=== PATIENT | female | born 1960 | race Caucasian/White ===

== ENCOUNTER → 2018-01-16 14:09 | Outpatient (CLI) | payer OTHER, SELFPAY ==
[2018-01-16 17:23] LABS: Absolute Lymphocyte Count 0.97 X10^3/ul (0.83-4.51); Absolute Neutrophil Count 1.6 X10^3/uL (2.0-7.7); Basophil# 0.01 X10^3/uL; Basophil% 0.3 % (0-1); Eosinophil# 0.11 X10^3/uL; Eosinophils% 3.7 % (0-5); Hemoglobin 14.7 g/dl (12.0-15.0); Lymphocyte # 0.97 X10^3/ul (4.0); Lymphocyte % 32.7 % (19-41); Mean Corp Hgb Conc 32.7 g/gl (32-36); Mean Corpuscular Hgb 30.4 pg (27.0-32.0); Mean Platelet Vol. 11.8 fl (6.2-12.0); Monocyte# 0.28 X10^3/uL; Monocyte% 9.4 % (0-10); Neutrophil # 1.59 X10^3/uL (2.7-7.7); Neutrophil % 53.6 % (47-70); POSITIVE DIFFERENTIAL NO; Platelet Count 62 K/mm3 (150-450); RBC Distribution Width CV 15.4 % (11.6-14.6); RBC Distribution Width SD 51.6 fl (35.1-43.9); Red Blood Count 4.84 M/mm3 (4.2-5.4)
[2018-01-16 17:24] LABS: POSITIVE COUNT NO; POSITIVE MORPHOLOGY NO
[2018-01-16 17:46] LABS: Anion Gap 6 (5-15); BUN 14 mg/dL (7-18); BUN/Creat Ratio 23.6 RATIO (10-20); Calcium,Total 8.3 mg/dL (8.5-10.1); Chloride 110 mmol/L (98-107); Creatinine, Serum 0.59 mg/dL (0.55-1.02); EST Glomerular Filtration Rate 111 mL/min (>60); Est Glom Filt Rate - Afr Amer 134 mL/min (>60); Glucose 86 mg/dL (74-106); Sodium Level 143 mmol/L (136-145); Thyroid Stim Hormone (TSH) 1.38 uIU/mL (0.358-3.74)
[2018-01-18 12:05] LABS: AFP, Tumor Marker 1.9 ng/mL (0.0-8.3)
== END ==
PROVIDERS: Family Provider Family Medicine Geriatric Medicine; PCP Family Medicine Geriatric Medicine; Visit Provider Internal Medicine Gastroenterology
DX: K74.60 Unspecified cirrhosis of liver (principal)
CPT/HCPCS: 36415; 80048; 82105; 84443; 85025

== ENCOUNTER → 2018-01-16 17:22 | Outpatient (CLI) | payer OTHER, SELFPAY | PROVIDERS: Family Provider Family Medicine Geriatric Medicine; PCP Family Medicine Geriatric Medicine; Visit Provider Family Medicine Geriatric Medicine | DX: N39.0 Urinary tract infection, site not specified (principal) | CPT/HCPCS: 87077; 87086; 87088; 87186 ==

== ENCOUNTER → 2018-01-30 10:12 | Outpatient (CLI) | payer OTHER, SELFPAY ==
[2018-01-30 10:57] LABS: Hematocrit 46.7 % (37-47); Hemoglobin 14.7 g/dl (12.0-15.0); Mean Corp Hgb Conc 31.5 g/gl (32-36); Mean Corpuscular Hgb 29.3 pg (27.0-32.0); Mean Platelet Vol. 11.7 fl (6.2-12.0); Platelet Count 72 K/mm3 (150-450); RBC Distribution Width CV 15.2 % (11.6-14.6); RBC Distribution Width SD 52.1 fl (35.1-43.9); Red Blood Count 5.02 M/mm3 (4.2-5.4); White Blood Count 3.8 K/mm3 (4.4-11.0)
[2018-01-30 10:59] LABS: Scan Indicated on CBC? Y/N NO
[2018-01-30 11:08] LABS: Prothrombin Time (Protime)PT. 12.9 SECONDS (11.7-14.9)
[2018-01-30 11:09] LABS: Partial Thromboplast Time 25.5 Seconds (24.1-36.2)
[2018-01-30 11:27] LABS: AST(SGOT) 131 U/L (15-37); Alanine Aminotransfer ALT/SGPT 130 U/L (13-56); Albumin, Serum 3.4 g/dL (3.2-5.0); Alkaline Phosphatase 337 U/L (45-117); Bilirubin, Direct 0.37 mg/dL (0.00-0.30); Globulin 3.5 g/dL (2.2-4.2); Protein, Total 6.9 g/dL (6.4-8.2)
== END ==
PROVIDERS: Family Provider Family Medicine Geriatric Medicine; PCP Family Medicine Geriatric Medicine; Visit Provider Internal Medicine Gastroenterology
DX: K74.60 Unspecified cirrhosis of liver (principal)
CPT/HCPCS: 36415; 80076; 85027; 85610; 85730

== ENCOUNTER → 2018-04-17 12:15 | Outpatient (CLI) | payer OTHER, SELFPAY ==
[2018-04-17 15:03] LABS: AST(SGOT) 107 U/L (15-37); Alanine Aminotransfer ALT/SGPT 90 U/L (13-56); Albumin, Serum 3.4 g/dL (3.2-5.0); Alkaline Phosphatase 244 U/L (45-117); Anion Gap 5 (5-15); BUN 12 mg/dL (7-18); BUN/Creat Ratio 21.9 RATIO (10-20); Chloride 107 mmol/L (98-107); Creatinine, Serum 0.55 mg/dL (0.55-1.02); EST Glomerular Filtration Rate 121 mL/min (>60); Est Glom Filt Rate - Afr Amer 146 mL/min (>60); Globulin 3.4 g/dL (2.2-4.2); Glucose 83 mg/dL (74-106); Protein, Total 6.8 g/dL (6.4-8.2); Sodium Level 140 mmol/L (136-145)
== END ==
PROVIDERS: Family Provider Family Medicine Geriatric Medicine; PCP Family Medicine Geriatric Medicine; Visit Provider Internal Medicine Gastroenterology
DX: K74.3 Primary biliary cirrhosis (principal)
CPT/HCPCS: 36415; 80053

== ENCOUNTER 2018-06-05 14:43 | Outpatient (RCR) | payer OTHER, SELFPAY ==
[2018-06-05 15:40] LABS: ALB/GLOB Ratio 0.9 RATIO (0.9-2.4); AST(SGOT) 86 U/L (15-37); Alanine Aminotransfer ALT/SGPT 81 U/L (13-56); Albumin, Serum 3.1 g/dL (3.2-5.0); Alkaline Phosphatase 218 U/L (45-117); Anion Gap 6 (5-15); BUN 16 mg/dL (7-18); BUN/Creat Ratio 26.1 RATIO (10-20); Calcium,Total 8.8 mg/dL (8.5-10.1); Chloride 105 mmol/L (98-107); Creatinine, Serum 0.61 mg/dL (0.55-1.02); EST Glomerular Filtration Rate 106 mL/min (>60); Est Glom Filt Rate - Afr Amer 129 mL/min (>60); Globulin 3.4 g/dL (2.2-4.2); Glucose 112 mg/dL (74-106); Potassium 4.1 mmol/L (3.5-5.1); Protein, Total 6.5 g/dL (6.4-8.2); Sodium Level 140 mmol/L (136-145)
== END 2018-06-05 16:00 | disposition home or self-care (01) ==
LOC: LAB 14:43
PROVIDERS: Family Provider Family Medicine Geriatric Medicine; PCP Family Medicine Geriatric Medicine; Visit Provider Internal Medicine Gastroenterology
DX: K74.3 Primary biliary cirrhosis (principal)
CPT/HCPCS: 36415; 80053

== ENCOUNTER → 2018-07-10 06:43 | Outpatient (CLI) | payer OTHER, SELFPAY ==
--- NOTE | 2018-07-10 06:46 | CT_ITS ---
STUDY: CT ABDOMEN WITH CONTRAST REASON FOR EXAM: Female, 58 years old. Cirrhosis. RADIATION DOSAGE (If Supplied By Facility): CTDIvol = ( 15.08 ) mGy, DLP = ( 789.44 ) mGycm TECHNIQUE: Transaxial images were obtained post I.V. administration of 100 ml of Isovue 300 contrast, and with oral contrast. Sagittal and coronal images were reconstructed. Individualized dose optimization techniques were used for this CT. COMPARISON: Comparison is made with prior study dated November 21, 2016. FINDINGS: Mild degree of groundglass appearance in the right lower lobe. This may represent an early infiltrate. Follow-up is recommended. Stable linear scarring at the lung bases. The visualized portions of the heart are within normal limits. There is decreased attenuation of the liver consistent with steatosis. Normal gallbladder and extrahepatic biliary system. There is moderate splenomegaly. Normal pancreas. The previously seen perisplenic venous collaterals are not as prominent at this time. Normal bilateral adrenal glands. There is a 2.9 cm cyst in the anterior-inferior portion of the right kidney. Smaller cysts are also seen throughout the remainder of the right kidney as well as a 2 cm cyst in the anterior aspect of the left kidney. Normal left kidney. Normal visualized stomach. Normal small intestine. There are multiple colonic diverticula consistent with diverticulosis. The appendix is visualized and appears normal. There is scattered atherosclerotic calcification of the abdominal aorta, without a demonstrated aneurysm. Normal inferior vena cava. Normal retroperitoneum. Normal abdominal wall. Normal osseous structures. CT/Abdomen WITH IV Contrast IMPRESSION: Infiltration of the liver. Moderate splenomegaly. Electronically Signed: Edgardo George MD at 12:50 EDT Tel [phone], Service support ,
== END ==
PROVIDERS: Family Provider Family Medicine Geriatric Medicine; PCP Family Medicine Geriatric Medicine; Referring Provider Internal Medicine Gastroenterology; Visit Provider Internal Medicine Gastroenterology
DX: K74.60 Unspecified cirrhosis of liver (principal); K76.89 Other specified diseases of liver; R16.1 Splenomegaly, not elsewhere classified
CPT/HCPCS: 74160; Q9967

== ENCOUNTER → 2018-07-22 | Outpatient (CLI) | payer OTHER, SELFPAY | END | disposition home or self-care (01) | PROVIDERS: Family Provider Family Medicine Geriatric Medicine; PCP Family Medicine Geriatric Medicine; Referring Provider Ophthalmology; Visit Provider Ophthalmology | DX: H16.123 Filamentary keratitis, bilateral (principal) | CPT/HCPCS: 36415 ==

== ENCOUNTER → 2018-08-05 07:12 | Outpatient (CLI) | payer OTHER, SELFPAY ==
--- NOTE | 2018-08-05 07:14 | BI_ITS ---
MAMMOGRAPHY - BILATERAL SCREENING REASON FOR EXAM: Female, 58 years old. Routine annual screening examination. PERTINENT HISTORY: Mother with breast cancer. Aunt with breast cancer. TECHNIQUE: Digital bilateral breast rosanna (3D mammographic acquisition) in the CC and MLO projections. 2-D mediolateral oblique (MLO) and craniocaudad (CC) views of both breasts were obtained. CAD: Full Field Digital Mammography with Computer Added Detection was performed. COMPARISON: Comparison is made with prior study dated August 30, 2016 and July 28, 2015. FINDINGS: Breast Composition: The breasts are heterogeneously dense, which may obscure small masses. There are no dominant masses or suspicious calcifications. No other significant abnormalities are identified. There has been no significant change since the prior study. BI/SCREENING MAMM (CAD), BILAT IMPRESSION: Stable bilateral screening mammogram. Yearly follow-up mammogram recommended. (A) ASSESSMENT CATEGORY: BIRADS Category 1: Negative. A letter regarding these results will be sent to the patient by the facility within 30 days. Approximately 10% of breast cancers are not detected by mammography. A normal mammogram should not delay biopsy of a clinically suspicious abnormality. [id number] Electronically Signed: Edgardo George MD at 8:10 EST Tel [phone], Service support ,
== END ==
PROVIDERS: Family Provider Family Medicine Geriatric Medicine; PCP Family Medicine Geriatric Medicine; Referring Provider Family Medicine Geriatric Medicine; Visit Provider Family Medicine Geriatric Medicine
DX: Z12.31 Encounter for screening mammogram for malignant neoplasm of breast (principal)
CPT/HCPCS: 77063; 77067

== ENCOUNTER → 2018-10-09 12:09 | Outpatient (CLI) | payer OTHER, SELFPAY ==
[2018-10-09 15:17] LABS: Absolute Lymphocyte Count 0.99 X10^3/ul (0.83-4.51); Absolute Neutrophil Count 1.9 X10^3/uL (2.0-7.7); Basophil# 0.01 X10^3/uL; Basophil% 0.3 % (0-1); Eosinophil# 0.14 X10^3/uL; Eosinophils% 4.1 % (0-5); Hematocrit 45.8 % (37-47); Hemoglobin 14.7 g/dl (12.0-15.0); Lymphocyte # 0.99 X10^3/ul (4.0); Mean Corp Hgb Conc 32.1 g/gl (32-36); Mean Corpuscular Hgb 30.1 pg (27.0-32.0); Mean Corpuscular Volume 93.9 fL (81-99); Mean Platelet Vol. 12.5 fl (6.2-12.0); Monocyte# 0.37 X10^3/uL; Monocyte% 10.9 % (0-10); Neutrophil % 55.7 % (47-70); Platelet Count 52 K/mm3 (150-450); RBC Distribution Width CV 15.1 % (11.6-14.6); RBC Distribution Width SD 50.8 fl (35.1-43.9); Red Blood Count 4.88 M/mm3 (4.2-5.4); White Blood Count 3.4 K/mm3 (4.4-11.0)
[2018-10-09 15:23] LABS: POSITIVE COUNT NO; POSITIVE DIFFERENTIAL NO; POSITIVE MORPHOLOGY NO
--- OUTSIDE RECORDS SUMMARY | 2018-12-11 10:12 | XMS RPT_ITS ---
:1960 Author Organization OHIP Support Name Relationship Address Phone RUFINA TIJERINA Unavailable [address] + [place] [address] [facility] Unavailable [address] + [place] [address] RUFINA TIJERINA Unavailable [address] + [place] [address] [facility] Unavailable [address] + [place] [address] RUFINA TIJERINA Unavailable [address] + [place] [address] [facility] Unavailable [address] + [place] [address] RUFINA TIJERINA Unavailable [address] + [place] [address] [facility] Unavailable [address] + [place] [address] RUFINA TIJERINA Unavailable [address] + [place] [address] [facility] Unavailable [address] + [place] [address] RUFINA TIJERINA Unavailable [address] + [place] [address] [facility] Unavailable [address] + [place] [address] RUFINA TIJERINA Unavailable [address] + [place] [address] [facility] Unavailable [address] + [place] [address] RUFINA TIJERINA Unavailable [address] + [place] [address] [facility] Unavailable [address] + [place] [address] RUFINA TIJERINA Unavailable [address] + [place] [address] [facility] Unavailable [address] + [place] [address] RUFINA TIJERINA Unavailable [address] + [place] [address] [facility] Unavailable [address] + [place] [address] Care Team Providers Name Role Phone TAYLOROGIDA, JAIMEE A Referring Unavailable ARMOGIDA, JAIMEE A Referring Unavailable ARMOGIDA, JAIMEE A Attending Unavailable ARMOGIDA, JAIMEE A Referring Unavailable Armogida, Jaimee Attending Unavailable Armogida, Jaimee Referring Unavailable Vazquez, Lionel Chi Primary Care Unavailable Jabour, Vincent Attending Unavailable Vazquez, Lionel Chi Primary Care Unavailable Jabour, Vincent Referring Unavailable Vazquez, Lionel Chi Attending Unavailable Vazquez, Lionel Chi Primary Care Unavailable Vazquez, Lionel Chi Referring Unavailable Jabour, Vincent Attending Unavailable Jabour, Vincent Referring Unavailable Vazquez, Lionel Chi Primary Care Unavailable Jabour, Vincent Attending Unavailable Vazquez, Lionel Chi Primary Care Unavailable Jabour, Vincent Referring Unavailable Jabour, Vincent Attending Unavailable Jabour, Vincent Referring Unavailable Vazquez, Lionel Chi Primary Care Unavailable Jabour, Vincent Attending Unavailable Jabour, Vincent Referring Unavailable Vazquez, Lionel Chi Primary Care Unavailable Jabour, Vincent Attending Unavailable Jabour, Vincent Referring Unavailable Vazquez, Lionel Chi Primary Care Unavailable Giacomo Storey Attending Unavailable Vazquez, Lionel Chi Primary Care Unavailable Giacomo Storey Referring Unavailable Vazquez, Lionel Chi Attending Unavailable Vazquez, Lionel Chi Primary Care Unavailable Vazquez, Lionel Chi Referring Unavailable PROBLEMS PROBLEMS DATE TYPE CONDITION / CODE ATTENDING STATUS SOURCE 10/09/2018 Unknown D83.9 - Common Armogida, Active [place] variable [facility] immunodeficiency, [facility] unspecified / Repository D83.9(ICD-10) 08/29/2018 Active Moderate persistent NA Active [facility] asthma, [facility] [place] uncomplicated / Repository J45.40(ICD-10) 08/27/2018 Active Common variable NA Active [facility] immunodeficiency, [facility] [place] unspecified / Repository D83.9(ICD-10) 08/12/2018 Unknown H16.123 - Cordelia, Active [place] [facility] keratitis, Hospital bilateral / Repository H16.123(ICD-10) 06/19/2018 Unknown K74.3 - Primary Kaley, Paul Active [place] biliary cirrhosis / Community K74.3(ICD-10) Hospital Repository 01/30/2018 Unknown K74.60 - Kaley, Paul Active [place] Unspecified [facility] cirrhosis of liver Hospital / K74.60(ICD-10) Repository 01/17/2018 Unknown N39.0 - Urinary Vazquez, Lionel Chi Active [place] tract infection, Community site not specified Hospital / N39.0(ICD-10) Repository 01/17/2018 Unknown R53.83 - Other Kaley, Paul Active [place] fatigue / Community R53.83(ICD-10) Hospital Repository PROCEDURES PROCEDURES No Procedure Records FoundRESULTS RESULTS CBC W/DIFF, AUTOMATED Collected: 10/09/2018 Status: F Source: [place] 12:18 PM [facility] REPOSITORY TYPE CODE TESTS RESULT OUT OF RANGE REFERENCE UNITS LAB L100.1000 4.4-11.0 K/mm3 Low WBC 3.4 LAB L100.1200 4.2-5.4 M/mm3 Normal RBC 4.88 LAB L100.1300 12.0-15.0 g/dl Normal HGB 14.7 LAB L100.1400 37-47 % Normal HCT 45.8 LAB L100.1500 81-99 fL Normal MCV 93.9 LAB L100.1600 27.0-32.0 pg Normal MCH 30.1 LAB L100.1700 32-36 g/gl Normal MCHC 32.1 LAB L100.1810 11.6-14.6 % High RDW CV 15.1 LAB L100.1820 35.1-43.9 fl High RDW SD 50.8 LAB L100.1900 150-450 K/mm3 Low PLT 52 LAB L100.2000 6.2-12.0 fl High MPV 12.5 LAB L100.2100 47-70 % Normal NEUT% 55.7 LAB L100.2200 19-41 % Normal LY% 29.0 LAB L100.2300 0-10 % High MONO% 10.9 LAB L100.2400 0-5 % Normal EO% 4.1 LAB L100.2500 0-1 % Normal BASO% 0.3 LAB L100.2550 0.0-0.9 % Normal IM GRAN % 0.000 Result Comment: IG% - Immature Granulocytes (promyelocytes, myelocytes and metamyelocytes) > 1% indicates that a LEFT SHIFT is Present. LAB L100.2620 2.0-7.7 X10 3/uL Low Absolute Neut 1.9 LAB L100.2720 0.83-4.51 X10 3/ul Normal Absolute Lymph 0.99 Performed By: #### L100.0100 #### [facility] [address] [place], [address] PROGRESS Observed: 08/29/2018 Status: COMPLETED Source: [place] 4:23 PM [facility] [place] REPOSITORY HNO ID: [id number] Author: Jaimee Candelario Service: (none) Author Type: Physician Type: Progress Notes Filed: 08/30/2018 7:16 AM Note Text: Edna Tijerina is a 58 year old female with common variable immunodeficiency, moderate persistent asthma and PEIFANIO who presents for a followup visit. She also has a history of thrombocytopenia for which she has previously been evaluated in hematology (Dr. Means.). He felt the thrombocytopenia was secondary to her liver disease rather than common variable immunodeficiency. Her last visit was July 24, 2017. Overall, she has done well over the past year without experiencing significant infections. Denies taking antibiotics since her last visit. She continues Hizentra 11 g per week. She has been tolerating this without adverse reaction. Recent trough IgG level was 1050. She has intentionally lost 60 pounds through [employer]. Her primary care physician prescribed Tudorza a few months ago. She discontinued use of Dulera when she started Tudorza Her respiratory symptoms have improved with Tudorza. She denies cough, wheezing, chest tightness and shortness of breath. Denies nocturnal awakenings due to respiratory symptoms. Infrequent albuterol use. Denies treatment with systemic corticosteroids, ER visits or hospitalizations for respiratory symptoms since her last visit. On laboratory evaluation completed on August 26, 2018 at [facility], white blood cell count was low at 2.8. Absolute lymphocyte count was 900. Absolute granulocyte count was 1400. Platelets were low at 57. (Typically her platelet count is between 80-100). ALT, AST and alkaline phosphatase are elevated at 72, 101 and 230 respectively. She is compliant with use of CPAP for obstructive sleep apnea. (On November 07, 2016, she was evaluated by Dr. Means in hematology for thrombocytopenia. She has an enlarged spleen and portal hypertension. Dr. Means feels that the thrombocytopenia is secondary to her liver disease and recommended follow-up as needed. Trough IgG level was 885 in July,.) (03/26/2013: Edna Tijerina is a 52 year old female with common variable immunodeficiency, and moderate persistent asthma who presents for a followup visit. Her last visit was January 15, 2013. She began hizentra 9 g subcutaneously once per week at that time. She reports mild itching at the infusion sites. Otherwise, she has been tolerating the infusions without adverse reaction. One episode of sinusitis requiring treatment with a 10-14 day course of antibiotics since her last visit. She currently has an upper respiratory infection. She complains of intermittent cough. Noted wheezing on one occasion after walking up several flights of stairs. Denies chest tightness and shortness of breath. Rare albuterol use. Sometimes forgets evening dose of Dulera. Denies nocturnal awakenings due to respiratory symptoms. No oral steroids, ER visits or admissions for respiratory symptoms since her last visit. Her mother is undergoing chemo and radiation for tumor of maxillary sinus- under the care of Drs. Garza and Miki. (From visit on 01/15/13: On December 30, she developed severe low back pain during her first IVIG infusion. The pain developed at the initial rate of 30 mL per hour. Infusion was stopped. She was treated with Demerol, hydrocortisone, Benadryl and a saline bolus of 500 mL with improvement. The infusion was resumed and completed. Today she will receive her first subcutaneous infusion of Hizentra 9 g in the office. No infections requiring treatment with antibiotics since her last visit. Asthma symptoms have been well-controlled since her last visit.) (From visit on 12/23/2012... Her nasal symptoms have been well-controlled by fluticasone nasal spray. Asthma symptoms have remained well-controlled since her last visit. She feels the combination of Dulera 200/5 and Singulair is effective. Denies significant wheezing, chest tightness and shortness of breath. Denies nocturnal awakenings due to respiratory symptoms. No oral steroids, ER visits or admissions for asthma since her last visit. No infections requiring treatment with antibiotics since her last visit.) (From her initial visit on October 06, 2012: ...was diagnosed with common variable immunodeficiency by Dr. Garza in 2009. She has a 13 year history of recurrent infections. She currently has left lower lobe pneumonia. In June,, she had right lower lobe pneumonia. She has a history of recurrent sinusitis. She last took antibiotics for sinusitis over one year ago. She has a history of occasional urinary tract infection. She [place] Giardia lamblia [place] [id number]. She was admitted for pleural effusion in 1988. No other admissions for infections. She has a history of DVTs and nephrotic syndrome related to . Nephrotic syndrome has resolved although she occasionally has a small amount of protein in her urine. She also has a history of mixed connective tissue disease and primary biliary cirrhosis. She began treatment with IVIG infusions in approximately Jan, 2010. She tolerated the first infusion which was given in a slow rate. When the rate was increased during subsequent infusions, she developed significant muscle spasms of her back. This was treated with Demerol. Symptoms improved by the end of the infusions. She noted decreased infection frequency while on the IVIG. She discontinued IVIG in late 2009 or early 2010 due to the muscle spasms. Interestingly, she occasionally notes similar muscle spasms of the back with use of prednisone. She also has a history of asthma. Asthma symptoms include cough, wheezing and chest tightness. She uses albuterol approximately twice per day for acute symptoms. She also uses Dulera (?strength) but does not take this consistently. She developed sores in her mouth with prior use of Advair. She has a history of dry mouth. She was previously on Singulair with improvement. She has been treated with 4 courses of oral steroids for asthma exacerbations in the past year. No prior emergency room visits or admissions for asthma. Asthma triggers include upper respiratory infections and cold temperatures. She also complains of nasal congestion, rhinorrhea, and postnasal drip. Influenza vaccine is up-to-date. She received a Pneumovax last year. She has received a tetanus diphtheria booster within the past 5 years. She snores at night time but denies witnessed episodes of apnea or gasping. She feels well rested during the day. No prior CT chest.) REVIEW OF SYSTEMS: Negative for fevers, chills, night sweats and unintentional weight loss. Significant for shoulder pain, right greater than left All other review of systems negative except for those listed above. 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 Asthma: no. Eczema: no. Cystic fibrosis: no. Immunodeficiency: yes: dad with possible immunodeficiency. recent diagnosis. not under treatment. sister with MS. SOCIAL HISTORY: Marital status: Children: 2 Occupation: retired broadcast systems engineer, works PRN at [employer] Smoking: quit smoking 15 years ago.Smoked 1/2 PPD off and on for possible total of 15-20 years. ENVIRONMENTAL HISTORY: Lives in a house Age of home: 50 years Heating: gas Woodburning fireplace in the home: no Air conditioning: Central air Basement: Damp basement [place]: primarily hardwood Dust mite controls: Dust mite controls are already in place. pillows only Pets in the home: 1 dogs Outdoor animals: 1 cats indoors when cold Tobacco smoke: No exposure in the home. Physical Exam: GENERAL APPEARANCE:well appearing, alert, in no acute distress, well-hydrated HEENT: NCAT. EYES: Conjunctiva clear both eyes EARS: External ears normal. Canals clear. TM's normal. NOSE/SINUS:mild edema of the nasal mucosa with scant clear secretions bilaterally THROAT: no erythema NECK:neck supple, no adenopathy HEART:RRR with normal S1 and S2 ,no murmurs, no gallops, no rubs LUNGS clear to auscultation bilaterally, no wheezing, rales or rhonchi. ABDOMEN:soft, nontender, nondistended, without organomegaly or palpable masses SKIN: Skin color, texture, turgor normal. No rashes or lesions. Exhaled nitric oxide on February 15, 2016: 37 PPB Exhaled nitric oxide on March 02, 2015: 9 PPB Spirometry on August 28, 2018: Moderate obstruction without a significant bronchodilator response. Spirometry on June 13, 2016: Moderately severe obstruction without a significant bronchodilator response. Spirometry pre-and postbronchodilator on February 15, 2016: Moderately severe obstruction with a significant bronchodilator response. Spirometry on March 02, 2015: Moderately severe obstruction with 13% improvement (180 mL) and FEV1 and 68% improvement in FEF 25-75% postbronchodilator. There has been a significant decline in FEV1 compared to spirometry last completed on October 15, 2013. Spirometry completed on 10/15/2013: Mild obstruction without a significant bronchodilator response PFTs (11/11/2012): Moderate obstruction without a significant bronchodilator response. Lung volumes normal. Diffusing capacity uncorrected mildly impaired. Lab results from October 16, 2012: IgG 179, IgA less than 5, IgM 15, IgE less than 1. Low tetanus and diphtheria IgG antibody. UA negative for protein. Pneumococcal IgG titers were all less than 1 mcg/ml. Prevaccination pneumococcal titers were all less than 1 mcg per mL per liter. On December 13, 2012, postvaccination titers to tetanus, diphtheria and strep pneumonia were obtained. Tetanus and diphtheria were less than 0.1 international units/mL. Pneumococcal titers were all less than [address] chest without contrast completed on November 25, 2012: No acute airspace opacities. Small lymph nodes identified in the mediastinum, may be reactive in nature. Possible lymph nodes in the portacaval region. (Patient has a history of primary biliary cirrhosis and has right upper quadrant ultrasound completed every 6 months. She plans to followup with in gastroenterology.) Prior laboratory evaluation: On October 02, 2009, total protein was 5.7, IgG 338, IgA less than 5 , IgM 22. C3, C4 and CH 50 normal. On lab work completed January 15, 2012, hepatitis B surface antibody, Rubeola IgG antibody, mumps IgG antibody, and rubella IgG antibodies were low. Varicella zoster antibody titer was adequate. Prior radiology reports: On chest x-ray completed October 08, 2012, left lower lobe pneumonia was noted. Previously seen right lower lobe infiltrate had cleared. On chest x-ray completed July 25, 2012, increased density of the posterior basilar right lower lobe was noted which may be field service representative of atelectasis bronchitis or bronchiectasis. Mild hyperinflation was also noted. On chest x-ray completed January 02, 2012, increased interstitial markings consistent with bronchitis was noted. Chest x-ray on January 05, 2014: Chronic interstitial fibrotic changes. No superimposed acute pulmonary process. ASSESSMENT/PLAN: 1.) Common variable immunodeficiency: Continue Hizentra 20% 11 g subcutaneously once per week. Patient will continue to have self injectable epinephrine and Benadryl available in case of anaphylactic reaction. Patient has been instructed to seek emergent medical care immediately after using an EpiPen. Trough IgG level, CBC with differential and platelets and complete metabolic panel will be obtained in February 2019 2.) Thrombocytopenia and elevated liver function tests in the setting of primary biliary cirrhosis: Repeat CBC with differential and platelets will be obtained in 1 month. Recent laboratory results forwarded to the office of her executive legal secretary, Dr. Norwood Recommend that she follow-up with gastroenterology and her primary care physician. 3.) Moderate to severe persistent asthma Continue Tudorza 1 puff twice daily. Resume regular use of Dulera 200/5 2 inhalations twice daily. Use with spacer and rinse mouth out after use. Continue Singulair 10 mg at bedtime. Continue albuterol HFA inhaler with spacer 2 puffs every 4 hours as needed. May also use 15 minutes pre-exercise She should continue to receive an annual inactivated influenza vaccine. Spirometry pre-and postbronchodilator will be obtained. 4.) EPIFANIO: Continue CPAP 5.) Discussed medication dosage, usage, side effects including potential side effects of systemic steroids antibiotics, and goals of treatment in detail. 6.) Follow-up in 6 months - patient will return sooner should new symptoms or problems arise. Jaimee Candelario MD CNOV Observed: 08/29/2018 Status: COMPLETED Source: [place] 3:30 PM [facility] REPOSITORY Office Visit (COURTNEYMED) EDNA TIJERINA ([id number]) 1960 F Date Time Provider Department 08/29/18 3:30 PM JAIMEE CANDELARIO During your visit today, we recorded the following information about you: Pulse Respiration Blood pressure Weight 88/minute 18/minute 108/60 84.4 kg Yina Monsivais RN 08/29/2018 3:58 PM Signed Patient doing well, no infections. Infusions going well. Switched to Tudorza by PCP. Jaimee Candelario MD 08/30/2018 7:16 AM Signed Edna Tijerina is a 58 year old female with common variable immunodeficiency, moderate persistent asthma and EPIFANIO who presents for a followup visit. She also has a history of thrombocytopenia for which she has previously been evaluated in hematology (Dr. Means.). He felt the thrombocytopenia was secondary to her liver disease rather than common variable immunodeficiency. Her last visit was July 24, 2017. Overall, she has done well over the past year without experiencing significant infections. Denies taking antibiotics since her last visit. She continues Hizentra 11 g per week. She has been tolerating this without adverse reaction. Recent trough IgG level was 1050. She has intentionally lost 60 pounds through Weight [employer]. Her primary care physician prescribed Tudorza a few months ago. She discontinued use of Dulera when she started Tudorza Her respiratory symptoms have improved with Tudorza. She denies cough, wheezing, chest tightness and shortness of breath. Denies nocturnal awakenings due to respiratory symptoms. Infrequent albuterol use. Denies treatment with systemic corticosteroids, ER visits or hospitalizations for respiratory symptoms since her last visit. On laboratory evaluation completed on August 26, 2018 at [facility], white blood cell count was low at 2.8. Absolute lymphocyte count was 900. Absolute granulocyte count was 1400. Platelets were low at 57. (Typically her platelet count is between 80-100). ALT, AST and alkaline phosphatase are elevated at 72, 101 and 230 respectively. She is compliant with use of CPAP for obstructive sleep apnea. (On November 07, 2016, she was evaluated by Dr. Means in hematology for thrombocytopenia. She has an enlarged spleen and portal hypertension. Dr. Means feels that the thrombocytopenia is secondary to her liver disease and recommended follow-up as needed. Trough IgG level was 885 in July,.) (03/26/2013: Edna Tijerina is a 52 year old female with common variable immunodeficiency, and moderate persistent asthma who presents for a followup visit. Her last visit was January 15, 2013. She began hizentra 9 g subcutaneously once per week at that time. She reports mild itching at the infusion sites. Otherwise, she has been tolerating the infusions without adverse reaction. One episode of sinusitis requiring treatment with a 10-14 day course of antibiotics since her last visit. She currently has an upper respiratory infection. She complains of intermittent cough. Noted wheezing on one occasion after walking up several flights of stairs. Denies chest tightness and shortness of breath. Rare albuterol use. Sometimes forgets evening dose of Dulera. Denies nocturnal awakenings due to respiratory symptoms. No oral steroids, ER visits or admissions for respiratory symptoms since her last visit. Her mother is undergoing chemo and radiation for tumor of maxillary sinus- under the care of Drs. Garza and Miki. (From visit on 01/15/13: On December 30, she developed severe low back pain during her first IVIG infusion. The pain developed at the initial rate of 30 mL per hour. Infusion was stopped. She was treated with Demerol, hydrocortisone, Benadryl and a saline bolus of 500 mL with improvement. The infusion was resumed and completed. Today she will receive her first subcutaneous infusion of Hizentra 9 g in the office. No infections requiring treatment with antibiotics since her last visit. Asthma symptoms have been well-controlled since her last visit.) (From visit on 12/23/2012... Her nasal symptoms have been well-controlled by fluticasone nasal spray. Asthma symptoms have remained well-controlled since her last visit. She feels the combination of Dulera 200/5 and Singulair is effective. Denies significant wheezing, chest tightness and shortness of breath. Denies nocturnal awakenings due to respiratory symptoms. No oral steroids, ER visits or admissions for asthma since her last visit. No infections requiring treatment with antibiotics since her last visit.) (From her initial visit on October 06, 2012: ...was diagnosed with common variable immunodeficiency by Dr. Garza in 2009. She has a 13 year history of recurrent infections. She currently has left lower lobe pneumonia. In June,, she had right lower lobe pneumonia. She has a history of recurrent sinusitis. She last took antibiotics for sinusitis over one year ago. She has a history of occasional urinary tract infection. She had Giardia lamblia in [id number]. She was admitted for pleural effusion in 1988. No other admissions for infections. She has a history of DVTs and nephrotic syndrome related to . Nephrotic syndrome has resolved although she occasionally has a small amount of protein in her urine. She also has a history of mixed connective tissue disease and primary biliary cirrhosis. She began treatment with IVIG infusions in approximately Jan, 2010. She tolerated the first infusion which was given in a slow rate. When the rate was increased during subsequent infusions, she developed significant muscle spasms of her back. This was treated with Demerol. Symptoms improved by the end of the infusions. She noted decreased infection frequency while on the IVIG. She discontinued IVIG in late 2009 or early 2010 due to the muscle spasms. Interestingly, she occasionally notes similar muscle spasms of the back with use of prednisone. She also has a history of asthma. Asthma symptoms include cough, wheezing and chest tightness. She uses albuterol approximately twice per day for acute symptoms. She also uses Dulera (?strength) but does not take this consistently. She developed sores in her mouth with prior use of Advair. She has a history of dry mouth. She was previously on Singulair with improvement. She has been treated with 4 courses of oral steroids for asthma exacerbations in the past year. No prior emergency room visits or admissions for asthma. Asthma triggers include upper respiratory infections and cold temperatures. She also complains of nasal congestion, rhinorrhea, and postnasal drip. Influenza vaccine is up-to-date. She received a Pneumovax last year. She has received a tetanus diphtheria booster within the past 5 years. She snores at night time but denies witnessed episodes of apnea or gasping. She feels well rested during the day. No prior CT chest.) REVIEW OF SYSTEMS: Negative for fevers, chills, night sweats and unintentional weight loss. Significant for shoulder pain, right greater than left All other review of systems negative except for those listed above. 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 Asthma: no. Eczema: no. Cystic fibrosis: no. Immunodeficiency: yes: dad with possible immunodeficiency. recent diagnosis. not under treatment. sister with MS. SOCIAL HISTORY: Marital status: Children: 2 Occupation: retired broadcast systems engineer, works PRN at [employer] Smoking: quit smoking 15 years ago.Smoked 1/2 PPD off and on for possible total of 15-20 years. ENVIRONMENTAL HISTORY: Lives in a house Age of home: 50 years Heating: gas Woodburning fireplace in the home: no Air conditioning: Central air Basement: Damp basement [place]: primarily hardwood Dust mite controls: Dust mite controls are already in place. pillows only Pets in the home: 1 dogs Outdoor animals: 1 cats indoors when cold Tobacco smoke: No exposure in the home. Physical Exam: GENERAL APPEARANCE:well appearing, alert, in no acute distress, well-hydrated HEENT: NCAT. EYES: Conjunctiva clear both eyes EARS: External ears normal. Canals clear. TM's normal. NOSE/SINUS:mild edema of the nasal mucosa with scant clear secretions bilaterally THROAT: no erythema NECK:neck supple, no adenopathy HEART:RRR with normal S1 and S2 ,no murmurs, no gallops, no rubs LUNGS clear to auscultation bilaterally, no wheezing, rales or rhonchi. ABDOMEN:soft, nontender, nondistended, without organomegaly or palpable masses SKIN: Skin color, texture, turgor normal. No rashes or lesions. Exhaled nitric oxide on February 15, 2016: 37 PPB Exhaled nitric oxide on March 02, 2015: 9 PPB Spirometry on August 28, 2018: Moderate obstruction without a significant bronchodilator response. Spirometry on June 13, 2016: Moderately severe obstruction without a significant bronchodilator response. Spirometry pre-and postbronchodilator on February 15, 2016: Moderately severe obstruction with a significant bronchodilator response. Spirometry on March 02, 2015: Moderately severe obstruction with 13% improvement (180 mL) and FEV1 and 68% improvement in FEF 25-75% postbronchodilator. There has been a significant decline in FEV1 compared to spirometry last completed on October 15, 2013. Spirometry completed on 10/15/2013: Mild obstruction without a significant bronchodilator response PFTs (11/11/2012): Moderate obstruction without a significant bronchodilator response. Lung volumes normal. Diffusing capacity uncorrected mildly impaired. Lab results from October 16, 2012: IgG 179, IgA less than 5, IgM 15, IgE less than 1. Low tetanus and diphtheria IgG antibody. UA negative for protein. Pneumococcal IgG titers were all less than 1 mcg/ml. Prevaccination pneumococcal titers were all less than 1 mcg per mL per liter. On December 13, 2012, postvaccination titers to tetanus, diphtheria and strep pneumonia were obtained. Tetanus and diphtheria were less than 0.1 international units/mL. Pneumococcal titers were all less than [address] chest without contrast completed on November 25, 2012: No acute airspace opacities. Small lymph nodes identified in the mediastinum, may be reactive in nature. Possible lymph nodes in the portacaval region. (Patient has a history of primary biliary cirrhosis and has right upper quadrant ultrasound completed every 6 months. She plans to followup with in gastroenterology.) Prior laboratory evaluation: On October 02, 2009, total protein was 5.7, IgG 338, IgA less than 5 , IgM 22. C3, C4 and CH 50 normal. On lab work completed January 15, 2012, hepatitis B surface antibody, Rubeola IgG antibody, mumps IgG antibody, and rubella IgG antibodies were low. Varicella zoster antibody titer was adequate. Prior radiology reports: On chest x-ray completed October 08, 2012, left lower lobe pneumonia was noted. Previously seen right lower lobe infiltrate had cleared. On chest x-ray completed July 25, 2012, increased density of the posterior basilar right lower lobe was noted which may be field service representative of atelectasis bronchitis or bronchiectasis. Mild hyperinflation was also noted. On chest x-ray completed January 02, 2012, increased interstitial markings consistent with bronchitis was noted. Chest x-ray on January 05, 2014: Chronic interstitial fibrotic changes. No superimposed acute pulmonary process. ASSESSMENT/PLAN: 1.) Common variable immunodeficiency: Continue Hizentra 20% 11 g subcutaneously once per week. Patient will continue to have self injectable epinephrine and Benadryl available in case of anaphylactic reaction. Patient has been instructed to seek emergent medical care immediately after using an EpiPen. Trough IgG level, CBC with differential and platelets and complete metabolic panel will be obtained in February 2019 2.) Thrombocytopenia and elevated liver function tests in the setting of primary biliary cirrhosis: Repeat CBC with differential and platelets will be obtained in 1 month. Recent laboratory results forwarded to the office of her executive legal secretary, Dr. Norwood Recommend that she follow-up with gastroenterology and her primary care physician. 3.) Moderate to severe persistent asthma Continue Tudorza 1 puff twice daily. Resume regular use of Dulera 200/5 2 inhalations twice daily. Use with spacer and rinse mouth out after use. Continue Singulair 10 mg at bedtime. Continue albuterol HFA inhaler with spacer 2 puffs every 4 hours as needed. May also use 15 minutes pre-exercise She should continue to receive an annual inactivated influenza vaccine. Spirometry pre-and postbronchodilator will be obtained. 4.) EPIFANIO: Continue CPAP 5.) Discussed medication dosage, usage, side effects including potential side effects of systemic steroids antibiotics, and goals of treatment in detail. 6.) Follow-up in 6 months - patient will return sooner should new symptoms or problems arise. Jaimee Candelario MD Referring Provider: JAIMEE CANDELARIO [[id number]] Allergies As of Date: 08/29/2018 Noted Allergy Reaction SEASONAL ALLERGIES 11/07/2016 5 - Intolerance Date Reviewed: 08/29/2018 Reviewed by: Jaimee Candelario - Fully Assessed Reason for Visit: Established Patient [175] Cmt: f/u Primary Visit Diagnosis:Common variable immunodeficiency (HCC) [D83.9] Other Visit Diagnoses:Moderate persistent asthma without complication [J45.40] Thrombocytopenia (HCC) [D69.6] Primary biliary cirrhosis (HCC) [K74.3] Order(s):COMPOUNDED PRESCRIPTIONCheck CBC with differential and platelets in mid-September 2018. Fax results to Dr. Candelario at [phone] Dx: CVID 279.06Disp: 1 VialRfl: 0 mometasone-formoterol (DULERA) 200-5 mcg/actuation inhalerInhale 2 Puffs as instructed twice daily. Use with spacer. Rinse mouth out after use.Disp: 3 InhalerRfl: 3 COMPOUNDED PRESCRIPTIONPlease check IgG level, CBC with differential and platelets, electrolytes, Bun, creatinine and LFTs in February 2019 and fax results to Dr. Candelario at [phone]. DX: CVID D83.9Disp: 1 VialRfl: 0 Prescriptions as of 08/29/2018 Sig: ACLIDINIUM BROMIDE 400 MCG/AC* Inhale 1 Puff as instructed t* ALBUTEROL 90 MCG/ACTUATION AE* Inhale one(1) - two(2) puffs * EPINEPHRINE 0.3 MG/0.3 ML INJ* Inject 0.3 mL intramuscularly* ERGOCALCIFEROL (VITAMIN D2) 5* Take 50,000 Units by mouth. LASIX ORAL Take 20 mg by mouth as needed* PLAQUENIL ORAL Take 100 mg by mouth twice da* IMMUNE GLOB G 1 GRAM/5 ML(20 * 11 grams (55 ml) subcutaneous* MONTELUKAST 10 MG TABLET TAKE 1 TABLET DAILY AT BEDTIME OBETICHOLIC ACID 5 MG TABLET Take by mouth once daily. SPIRONOLACTONE 100 MG TABLET Take 100 mg by mouth once jessy* SAMUEL FORTE 500 MG TABLET Take one(1) tablet three time* COMPOUNDED PRESCRIPTION Check CBC with differential a* COMPOUNDED PRESCRIPTION Please check IgG level, CBC w* MOMETASONE-FORMOTEROL HFA 200* Inhale 2 Puffs as instructed * Problem List As Of Date 08/29/2018 Noted Resolved Immunodeficiency [D84.9] INVALID FOR* Common variable immunodeficiency [D83.9] INVALID FOR* Moderate persistent asthma [J45.40] INVALID FOR* PBC (primary biliary cirrhosis) (HCC) [K74.3] INVALID FOR* Thrombocytopenia, secondary [D69.59] INVALID FOR* Visit Notes: >> Yina Monsivais RN [place] Aug 29, 2018 3:34 PM Status: Signed Patient doing well, no infections. Infusions going well. Switched to Tudorza by PCP. Prescriptions ordered this encounter Disp Refills Start End COMPOUNDED PRESCRIPTION 1 Vi* 0 08/29/2018 Class: Print RX Sig: Check CBC with differential and platelets in mid-September 2018. Fax results to Dr. Candelario at [phone] Dx: CVID 279.06 MOMETASONE-FORMOTEROL HFA 200 MCG-5 * 3 In* 3 08/29/2018 Route: INHALATION Sig: Inhale 2 Puffs as instructed twice daily. Use with spacer. Rinse mouth out after use. COMPOUNDED PRESCRIPTION 1 Vi* 0 08/29/2018 Class: Print RX Sig: Please check IgG level, CBC with differential and platelets, electrolytes, Bun, creatinine and LFTs in February 2019 and fax results to Dr[address] Candelario at [phone]. DX: CVID D83.9 Medications Discontinued During This Encounter mometasone-formoterol (DULERA) 200-5* 3 In* 3 04/27/2016 08/29/2018 Route: INHALATION Sig: Inhale 2 Puffs as instructed twice daily. Use with spacer. Rinse mouth out after use. Patient not taking: Reported on 08/29/2018 Disc: Reason for discontinue is not on file. COMPOUNDED PRESCRIPTION 1 Vi* 0 08/22/2018 08/29/2018 Class: Print RX Sig: Please check IgG level, CBC with differential and platelets, electrolytes, Bun, creatinine and LFTs and fax results to Dr. Candelario at [phone]. DX: CVID D83.9 Disc: Reason for discontinue is not on file. azelastine (ASTELIN,ASTEPRO) 0.1% na* 1 Mart* 11 12/05/2016 08/29/2018 Route: EACH NOSTRIL Sig: Use 2 Sprays in each nostril twice daily as needed. Patient not taking: Reported on 08/29/2018 Disc: Reason for discontinue is not on file. cefdinir (OMNICEF) 300 mg capsule 40 c* 0 07/24/2017 08/29/2018 Route: ORAL Sig: Take 1 capsule by mouth twice daily. Patient not taking: Reported on 08/29/2018 Disc: Reason for discontinue is not on file. COMPOUNDED PRESCRIPTION 1 Vi* 0 02/15/2016 08/29/2018 Class: Print RX Sig: Please check CBC d/p. Fax results to Dr. Candelario at [phone]. DX: CVID 83.9 Disc: Reason for discontinue is not on file. COMPOUNDED PRESCRIPTION 1 Ea* 1 07/24/2017 08/29/2018 Class: Print RX Sig: Spirometry pre and post bronchodilator. dx: J45.40 moderate persistent asthma. FAx results to Dr. Candelario at [phone] Disc: Reason for discontinue is not on file. fluticasone (FLONASE) 50 mcg/actuati* 3 Mart* 3 12/05/2016 08/29/2018 Route: EACH NOSTRIL Sig: Use 1-2 Sprays in each nostril once daily. Patient not taking: Reported on 08/29/2018 Disc: Reason for discontinue is not on file. Disposition: Return in about 6 months (around 02/27/2019). Follow-up and Disposition History Recorded Encounter Status:Closed by JAIMEE CANDELARIO MD on 08/30/18 IGG Collected: 08/27/2018 Status: F Source: [place] 9:55 AM [facility] REPOSITORY TYPE CODE TESTS RESULT OUT OF RANGE REFERENCE UNITS LAB IGG 717-1411 mg/dL IgG 1050 Performed By: #### IGG #### [facility] [address] [place], [place] [address] SCREENING MAMM (CAD), Observed: 08/05/2018 Status: F Source: [place] BIL[place] 7:14 AM [facility] REPOSITORY [facility] Imaging Services [address] [place] [address] SCREENING MAMM (CAD), BILAT MR#: [id number] Acct: [id number] Name: EDNA TIJERINA Rep #: [id number] : 1960 F 58 From: Edgardo George MD PCP: Lionel Shukla MD, Chi Status: REG CLI Study: SCREENING MAMM (CAD), BILAT Date of Exam: 08/05/18 Exam# [id number] Ordering Dr: Lionel Shukla MD MAMMOGRAPHY - BILATERAL SCREENING REASON FOR EXAM: Female, 58 years old. Routine annual screening examination. PERTINENT HISTORY: Mother with breast cancer. Aunt with breast cancer. TECHNIQUE: Digital bilateral breast rosanna (3D mammographic acquisition) in the CC and MLO projections. 2-D mediolateral oblique (MLO) and craniocaudad (CC) views of both breasts were obtained. CAD: Full Field Digital Mammography with Computer Added Detection was performed. COMPARISON: Comparison is made with prior study dated August 30, 2016 and July 28, 2015. FINDINGS: Breast Composition: The breasts are heterogeneously dense, which may obscure small masses. There are no dominant masses or suspicious calcifications. No other significant abnormalities are identified. There has been no significant change since the prior study. BI/SCREENING MAMM (CAD), BILAT IMPRESSION: Stable bilateral screening mammogram. Yearly follow-up mammogram recommended. (A) ASSESSMENT CATEGORY: BIRADS Category 1: Negative. A letter regarding these results will be sent to the patient by the facility within 30 days. Approximately 10% of breast cancers are not detected by mammography. A normal mammogram should not delay biopsy of a clinically suspicious abnormality. [id number] Electronically Signed: Edgardo George MD at 8:10 EST Tel [phone], Service support , CC: Lionel Shukla MD Door To Door Salesman: Signed CNPN Observed: 07/30/2018 Status: COMPLETED Source: [place] 12:00 AM [facility] REPOSITORY Telephone (ALLMED) EDNA TIJERINA ([id number]) 1960 F Date Time Provider Department 07/30/18 JAIMEE CANDELARIO During your visit today, we recorded the following information about you: Marge Crews RN 07/30/2018 9:14 AM Signed Forms received for Hizentra. [place] 07-24-17 and follow up appt not scheduled. Jaimee Candelario MD 07/30/2018 10:49 AM Signed Form completed- scan a copy in the EMR Instruct patient to schedule a follow-up appt MD Marge Sparks RN 08/01/2018 12:13 PM Signed 60 minutes appt scheduled for patient; Marge Crews RN 08/06/2018 12:27 PM Signed Hinzentra approved from 08-08-18 to 08-08-2019. Allergies As of Date: 07/30/2018 Noted Allergy Reaction SEASONAL ALLERGIES 11/07/2016 5 - Intolerance Date Reviewed: 07/24/2017 Reviewed by: Marge Crews RN - Fully Assessed Reason for Visit: PA [Other] Cmt: hizentra Prescriptions as of 07/30/2018 Sig: MONTELUKAST 10 MG TABLET TAKE 1 TABLET DAILY AT BEDTIME COMPOUNDED PRESCRIPTION Please check IgG level, CBC w* ERGOCALCIFEROL (VITAMIN D2) 5* Take 50,000 Units by mouth. COMPOUNDED PRESCRIPTION Spirometry pre and post [facility]* CEFDINIR 300 MG CAPSULE Take 1 capsule by mouth twice* FLUTICASONE 50 MCG/ACTUATION * Use 1-2 Sprays in each nostri* AZELASTINE 137 MCG (0.1 %) NA* Use 2 Sprays in each nostril * LASIX ORAL Take 20 mg by mouth as needed* MOMETASONE-FORMOTEROL HFA 200* Inhale 2 Puffs as instructed * EPINEPHRINE 0.3 MG/0.3 ML INJ* Inject 0.3 mL intramuscularly* COMPOUNDED PRESCRIPTION Please check CBC d/p. Fax res* IMMUNE GLOB G 1 GRAM/5 ML(20 * 11 grams (55 ml) subcutaneous* SPIRONOLACTONE 100 MG TABLET Take 100 mg by mouth once jessy* SAMUEL FORTE 500 MG TABLET Take one(1) tablet three time* ALBUTEROL 90 MCG/ACTUATION AE* Inhale one(1) - two(2) puffs * Problem List As Of Date 07/30/2018 Noted Resolved Immunodeficiency [D84.9] INVALID FOR* Common variable immunodeficiency [D83.9] INVALID FOR* Moderate persistent asthma [J45.40] INVALID FOR* PBC (primary biliary cirrhosis) (HCC) [K74.3] INVALID FOR* Thrombocytopenia, secondary [D69.59] INVALID FOR* Encounter Status:Closed by MARGE CREWS RN on 08/01/18 MISCELLANEOUS LAB Collected: 07/22/2018 Status: F Source: [place] PROCEDURE 10:10 AM [facility] REPOSITORY Order Comment: SERUM FOR EYE DROPS-SPIN AND GIVE TO CHEMISTRY Comments: SERUM FOR EYE DROPS-SPIN AND GIVE TO CHEMISTRY Test(s) Ordered: SERUM FOR EYE DROPS-SPIN AND GIVE TO CHEMISTRY TYPE CODE TESTS RESULT OUT OF RANGE REFERENCE UNITS LAB L801.1541 Normal [facility] LAB TEST Result Comment: Sent directly to facility per ordering physician. Performed By: #### L801.1541 #### [facility] [address] [place], [address] ABDOMEN WITH IV Observed: 07/10/2018 Status: F Source: [place] CONTRAST 6:46 AM [facility] REPOSITORY [facility] Imaging Services [address] [place] [address] Abdomen WITH IV Contrast MR#: [id number] Acct: [id number] Name: EDNA TIJERINA Rep #: [id number] : 1960 F 58 From: Edgardo George MD PCP: Vazquez WEAVER,Lionel Ho Status: REG CLI Study: Abdomen WITH IV Contrast Date of Exam: 07/10/18 Exam# [id number] Ordering Dr: Paul Roche MD STUDY: CT ABDOMEN WITH CONTRAST REASON FOR EXAM: Female, 58 years old. Cirrhosis. RADIATION DOSAGE (If Supplied By Facility): CTDIvol = ( 15.08 ) mGy, DLP = ( 789.44 ) mGycm TECHNIQUE: Transaxial images were obtained post I.V. administration of 100 ml of Isovue 300 contrast, and with oral contrast. Sagittal and coronal images were reconstructed. Individualized dose optimization techniques were used for this CT. COMPARISON: Comparison is made with prior study dated November 21, 2016. FINDINGS: Mild degree of groundglass appearance in the right lower lobe. This may represent an early infiltrate. Follow-up is recommended. Stable linear scarring at the lung bases. The visualized portions of the heart are within normal limits. There is decreased attenuation of the liver consistent with steatosis. Normal gallbladder and extrahepatic biliary system. There is moderate splenomegaly. Normal pancreas. The previously seen perisplenic venous collaterals are not as prominent at this time. Normal bilateral adrenal glands. There is a 2.9 cm cyst in the anterior-inferior portion of the right kidney. Smaller cysts are also seen throughout the remainder of the right kidney as well as a 2 cm cyst in the anterior aspect of the left kidney. Normal left kidney. Normal visualized stomach. Normal small intestine. There are multiple colonic diverticula consistent with diverticulosis. The appendix is visualized and appears normal. There is scattered atherosclerotic calcification of the abdominal aorta, without a demonstrated aneurysm. Normal inferior vena cava. Normal retroperitoneum. Normal abdominal wall. Normal osseous structures. CT/Abdomen WITH IV Contrast IMPRESSION: Infiltration of the liver. Moderate splenomegaly. Electronically Signed: Edgardo George MD at 12:50 EDT Tel [phone], Service support , CC: Lionel Shukla MD; Paul Roche Door To Door Salesman: Signed COMPREHENSIVE METABOLIC Collected: 06/05/2018 Status: F Source: [place] 2:48 PM [facility] REPOSITORY TYPE CODE TESTS RESULT OUT OF RANGE REFERENCE UNITS LAB L501.0100 74-106 mg/dL High GLU 112 Result Comment: Fasting Glucose result from 100 to 125 mg/dL suggests IMPAIRED HOMEOSTASIS per A.D.A. criteria. Please note revised GLUCOSE reference range effective 2017. LAB L501.1000 7-18 mg/dL Normal BUN 16 LAB L501.1100 0.55-1.02 mg/dL Normal CREAT,SERUM 0.61 Result Comment: The validity of the calculated GFR AND GFRAA in patients over 70 years has not been determined. Clinical correlation is essential. LAB L501.1110 >60 mL/min Normal EST GFR 106 Result Comment: Non- GFR Calc LAB L501.1115 >60 mL/min Normal EST GFR - AA 129 Result Comment: GFR Calc LAB L501.1300 10-20 RATIO High BUN/CRE 26.1 LAB L501.1500 6.4-8.2 g/dL T Normal PROT 6.5 LAB L501.1800 3.2-5.0 g/dL Low ALB 3.1 LAB L501.1950 2.2-4.2 g/dL Normal GLOB 3.4 LAB L501.2000 0.9-2.4 RATIO Normal A/G 0.9 LAB L501.2200 8.5-10.1 mg/dL CA Normal 8.8 LAB L501.4100 15-37 U/L High AST 86 LAB L501.4305 45-117 U/L High ALK P 218 LAB L501.4405 13-56 U/L High ALT 81 LAB L501.4600 0.20-1.00 mg/dL T Normal BILI 0.60 LAB L501.5300 136-145 mmol/L NA Normal 140 LAB L501.5600 3.5-5.1 mmol/L K Normal 4.1 LAB L501.5900 98-107 mmol/L CL Normal 105 LAB L501.6100 21.0-32.0 mmol/L Normal CO2 29.0 LAB L501.6200 5-15 Normal GAP 6 Performed By: #### L500.4050 #### [facility] [address] [place], [address] COMPREHENSIVE METABOLIC Collected: 04/17/2018 Status: F Source: [facility] 12:26 PM [facility] REPOSITORY TYPE CODE TESTS RESULT OUT OF RANGE REFERENCE UNITS LAB L501.0100 74-106 mg/dL Normal GLU 83 Result Comment: Please note revised GLUCOSE reference range effective 2017. LAB L501.1000 7-18 mg/dL Normal BUN 12 LAB L501.1100 0.55-1.02 mg/dL Normal CREAT,SERUM 0.55 Result Comment: The validity of the calculated GFR AND GFRAA in patients over 70 years has not been determined. Clinical correlation is essential. LAB L501.1110 >60 mL/min Normal EST GFR 121 Result Comment: Non- GFR Calc LAB L501.1115 >60 mL/min Normal EST GFR - AA 146 Result Comment: GFR Calc LAB L501.1300 10-20 RATIO High BUN/CRE 21.9 LAB L501.1500 6.4-8.2 g/dL T Normal PROT 6.8 LAB L501.1800 3.2-5.0 g/dL Normal ALB 3.4 LAB L501.1950 2.2-4.2 g/dL Normal GLOB 3.4 LAB L501.2000 0.9-2.4 RATIO Normal A/G 1.0 LAB L501.2200 8.5-10.1 mg/dL CA Normal 9.0 LAB L501.4100 15-37 U/L High AST 107 LAB L501.4305 45-117 U/L High ALK P 244 LAB L501.4405 13-56 U/L High ALT 90 LAB L501.4600 0.20-1.00 mg/dL T Normal BILI 0.80 LAB L501.5300 136-145 mmol/L NA Normal 140 LAB L501.5600 3.5-5.1 mmol/L K Normal 4.0 LAB L501.5900 98-107 mmol/L CL Normal 107 LAB L501.6100 21.0-32.0 mmol/L Normal CO2 28.0 LAB L501.6200 5-15 Normal GAP 5 Performed By: #### L500.4050 #### [facility] [address], [place], [id number] CBC-COMPLETE BLOOD CNT Collected: 01/30/2018 Status: F Source: [place] NO DIFF 10:19 AM [facility] REPOSITORY TYPE CODE TESTS RESULT OUT OF RANGE REFERENCE UNITS LAB L100.1000 4.4-11.0 K/mm3 Low WBC 3.8 LAB L100.1200 4.2-5.4 M/mm3 Normal RBC 5.02 LAB L100.1300 12.0-15.0 g/dl Normal HGB 14.7 LAB L100.1400 37-47 % Normal HCT 46.7 LAB L100.1500 81-99 fL Normal MCV 93.0 LAB L100.1600 27.0-32.0 pg Normal MCH 29.3 LAB L100.1700 32-36 g/gl Low MCHC 31.5 LAB L100.1810 11.6-14.6 % High RDW CV 15.2 LAB L100.1820 35.1-43.9 fl High RDW SD 52.1 LAB L100.1900 150-450 K/mm3 Low PLT 72 LAB L100.2000 6.2-12.0 fl Normal MPV 11.7 Performed By: #### L100.0500 #### [facility] [address], [place], [id number] PROTHROMBIN TIME W/INR Collected: 01/30/2018 Status: F Source: [place] 10:19 AM [facility] REPOSITORY TYPE CODE TESTS RESULT OUT OF RANGE REFERENCE UNITS LAB L300.4150 11.7-14.9 SECONDS Normal PROTIME 12.9 LAB L300.4200 Normal INR 1.0 Performed By: #### L300.3900, L300.4310 #### [facility] [address] [place], [place], [id number] PARTIAL THROMBOPLAST Collected: 01/30/2018 Status: F Source: YENIFER TIME 10:19 AM [facility] REPOSITORY TYPE CODE TESTS RESULT OUT OF RANGE REFERENCE UNITS LAB L300.4310 24.1-36.2 Seconds Normal PTT 25.5 Performed By: #### L300.3900, L300.4310 #### [facility] [address], [place], [address] LIVER PROFILE Collected: 01/30/2018 Status: F Source: YENIFER 10:19 AM [facility] REPOSITORY TYPE CODE TESTS RESULT OUT OF RANGE REFERENCE UNITS LAB L501.1500 6.4-8.2 g/dL Normal T PROT 6.9 LAB L501.1800 3.2-5.0 g/dL Normal ALB 3.4 LAB L501.1950 2.2-4.2 g/dL Normal GLOB 3.5 LAB L501.4100 15-37 U/L High AST 131 LAB L501.4305 45-117 U/L High ALK P 337 LAB L501.4405 13-56 U/L High ALT 130 LAB L501.4600 0.20-1.00 mg/dL Normal T BILI 1.00 LAB L501.4700 0.00-0.30 mg/dL High D BILI 0.37 Performed By: #### L500.3400 #### [facility] [address] [place], [place], [address] CBC W/DIFF, AUTOMATED Collected: 01/16/2018 Status: F Source: YENIFER 4:35 PM [facility] REPOSITORY TYPE CODE TESTS RESULT OUT OF RANGE REFERENCE UNITS LAB L100.1000 4.4-11.0 K/mm3 Low WBC 3.0 LAB L100.1200 4.2-5.4 M/mm3 Normal RBC 4.84 LAB L100.1300 12.0-15.0 g/dl Normal HGB 14.7 LAB L100.1400 37-47 % Normal HCT 45.0 LAB L100.1500 81-99 fL Normal MCV 93.0 LAB L100.1600 27.0-32.0 pg Normal MCH 30.4 LAB L100.1700 32-36 g/gl Normal MCHC 32.7 LAB L100.1810 11.6-14.6 % High RDW CV 15.4 LAB L100.1820 35.1-43.9 fl High RDW SD 51.6 LAB L100.1900 150-450 K/mm3 Low PLT 62 LAB L100.2000 6.2-12.0 fl Normal MPV 11.8 LAB L100.2100 47-70 % Normal NEUT% 53.6 LAB L100.2200 19-41 % Normal LY% 32.7 LAB L100.2300 0-10 % Normal MONO% 9.4 LAB L100.2400 0-5 % Normal EO% 3.7 LAB L100.2500 0-1 % Normal BASO% 0.3 LAB L100.2550 0.0-0.9 % Normal IM GRAN % 0.300 Result Comment: IG% - Immature Granulocytes (promyelocytes, myelocytes and metamyelocytes) > 1% indicates that a LEFT SHIFT is Present. LAB L100.2620 2.0-7.7 X10 3/uL Low Absolute Neut 1.6 LAB L100.2720 0.83-4.51 X10 3/ul Normal Absolute Lymph 0.97 Performed By: #### L100.0100 #### [facility] [address] [place], [place], [address] BASIC METABOLIC Collected: 01/16/2018 Status: F Source: YENIFER PROFILE ([facility]) 4:35 PM [facility] REPOSITORY TYPE CODE TESTS RESULT OUT OF RANGE REFERENCE UNITS LAB L501.0100 74-106 mg/dL Normal GLU 86 Result Comment: Please note revised GLUCOSE reference range effective 2017. LAB L501.1000 7-18 mg/dL Normal BUN 14 LAB L501.1100 0.55-1.02 mg/dL Normal CREAT,SERUM 0.59 Result Comment: The validity of the calculated GFR AND GFRAA in patients over 70 years has not been determined. Clinical correlation is essential. LAB L501.1110 >60 mL/min Normal EST GFR 111 Result Comment: Non- GFR Calc LAB L501.1115 >60 mL/min Normal EST GFR - AA 134 Result Comment: GFR Calc LAB L501.1300 10-20 RATIO High BUN/CRE 23.6 LAB L501.2200 8.5-10.1 mg/dL Low CA 8.3 LAB L501.5300 136-145 mmol/L NA Normal 143 LAB L501.5600 3.5-5.1 mmol/L K Normal 4.0 LAB L501.5900 98-107 mmol/L High CL 110 LAB L501.6100 21.0-32.0 mmol/L Normal CO2 27.0 LAB L501.6200 5-15 Normal GAP 6 Performed By: #### L500.2500, L501.9520 #### [facility] [address] [place], [place], [address] THYROID STIM HORMONE Collected: 01/16/2018 Status: F Source: [place] (TSH) 4:35 PM [facility] REPOSITORY TYPE CODE TESTS RESULT OUT OF RANGE REFERENCE UNITS LAB L501.9520 0.358-3.74 uIU/mL Normal TSH 1.38 Performed By: #### L500.2500, L501.9520 #### [facility] [address] [place], [place], [address] AFP, TUMOR MARKER Collected: 01/16/2018 Status: F Source: [place] 4:35 PM [facility] REPOSITORY Order Comment: SEND RESULTS OF AFP TUMOR MARKER TO @[id number] Is Patient ? N TYPE CODE TESTS RESULT OUT OF RANGE REFERENCE UNITS LAB L3300.0700 0.0-8.3 ng/mL Normal AFP TUMOR 1.9 2253 Result Comment: Celi ECLIA methodology Performed at: [address], [place], [place] [id number] [employer] Sales Representative: Paul Ridley PhD, Phone: [phone] Performed By: #### L3300.0700 #### [facility] (refer to report for specific site) refer to report for address and phone number Observed: 01/16/2018 Status: F Source: [place] CULTURE, URINE 12:00 AM [facility] REPOSITORY Urine Culture ORGANISM 1: Escherichia coli [place] Count 80,000-100,000 Escherichia coli: REACTION Amoxacillin/Clavulanic Acid $ 4 S Ampicillin $ >=32 R Ampicillin/Sulbactam $ 16 I Cefazolin $ <=4 S Cefepime $ <=1 S Ceftriaxone $ <=1 S Ciprofloxacin $ <=0.25 S ESBL - Ertapenim $$$ <=0.5 S Gentamicin $ 8 I Imipenem *NF <=0.25 S Levofloxacin $ <=0.12 S Nitrofurantoin $ 32 S Piperacillin/Tazobactam $$ <=4 S Tobramycin $ <=1 S Trimethoprim/Sulfametho $ >=320 R (NF) indicates non-formulary drug at [facility]. Approval by Infectious Disease Specialist required before non-formulary drugs may be ordered and/or dispensed. Performed By: #### M100.0650 #### [facility] [place], [address] ALLERGIES ALLERGIES DATE TYPE / CODE NAME / CODE REACTION SEVERITY SOURCE 11/07/2016 Environ/420 SEASONAL INTOLERANCE [facility] [id number](SN ALLERGIES [facility]) Repository ENCOUNTERS ENCOUNTERS ADMIT/DISCHARGE ACCOUNT ADMITTING ENCOUNTER LOCATION SOURCE NUMBER CLASS 10/09/2018 [id number] [facility] ing:LAB Repository 08/29/2018/08/29/[id number] Repository 08/29/2018/09/02/[id number] Repository 08/27/2018/08/27/[id number] Repository 08/05/2018 [id number] [facility] ing:OPBI Repository 07/22/2018/07/22/[id number] ing:LAB.FUTUR Repository E 07/10/2018 [id number] [facility] ing:CT Repository 06/27/2018 [id number] [facility] ing:LAB Repository 06/05/2018/06/05/20 [id number] Ambulatory [address] ing:LAB Repository 04/17/2018 [id number] [facility] ing:LAB.FUTUR Repository E 01/30/2018 [id number] [facility] ing:LAB Repository 01/16/2018 [id number] [facility] ing:LABSPEC Repository 01/16/2018 [id number] [facility] ing:POLAB3 Repository PAYERS PAYERS ENCOUNTER GUARANTOR PAYER SUBSCRIBER SOURCE 10/09/2018 EDNA Lorenzo Primary ENDA Lorenzo Yenifer [id number] Insurance:MEDICAL KIRKERDOB: [facility] [id number] Number: Repository [address]Djq: 330 [id number] [phone] (HP) Date:5579-25-39ZO [address] [address]BL: 10/09/2018 Secondary NOT GIVENUNK [place] Insurance:SELF PAY [facility] Number: Effective Repository Date:2018-10-09 08/05/2018 EDNA Lorenzo Primary EDNA Lorenzo Yenifer [id number] Insurance:MEDICAL KIRKERDOB: [facility] [id number] Number: Repository [address]Jqz: 330 [id number] [phone] (HP) Date:8237-30-90MH [address] [address]WY: 08/05/2018 Secondary NOT GIVENUNK [place] Insurance:SELF PAY [facility] Number: Effective Repository Date:2018-07-01 07/22/2018 EDNA Lorenzo Primary EDNA Lorenzo [place] [id number] Insurance:MEDICAL KIRKERDOB: [facility] [id number] Number: Repository [address]Fcm: 330 [id number] [phone] (HP) Date:5346-74-66ES [address] [place] [address]WF: 07/22/2018 Secondary NOT GIVENUNK [place] Insurance:SELF PAY [facility] Number: Effective Repository Date:2018-07-22 07/10/2018 EDNA Lorenzo Primary EDNA Lorenzo [place] [id number] Insurance:MEDICAL KIRKERDOB: [facility] [id number] Number: Repository [address]Mgm: 330 [id number] [phone] (HP) Date:7359-76-16HI [address] [address]FH: 07/10/2018 Secondary NOT GIVENUNK [place] Insurance:SELF PAY [facility] Number: Effective Repository Date:2018-07-01 06/27/2018 Edna Lorenzo Primary Edna Lorenzo [place] [id number] Insurance:MEDICAL KirkerDOB: Community [facility] [id number] Number: Repository [address]Mpz: 330 [id number] [phone] (HP) Date:9897-79-68DB [address] [address]XW: 06/27/2018 Secondary NOT GIVENUNK [place] Insurance:SELF PAY [facility] Number: Effective Repository Date:2018-06-19 06/05/2018 Edna Lorenzo Primary Edna Lorenzo [place] [id number] Insurance:MEDICAL KirkerDOB: Community [facility] [id number] Number: Repository [address]Zjd: 330 [id number] [phone] (HP) Date:0285-72-38BH [address] [address]EU: 06/05/2018 Secondary NOT GIVENUNK [place] Insurance:SELF PAY [facility] Number: Effective Repository Date:2018-06-05 04/17/2018 Edna Lorenzo Primary Edna Lorenzo [place] [id number] Insurance:MEDICAL KirkerDOB: [id number] [place] Number: Repository [id number]: 330 [id number] [phone] (HP) Date:5206-88-13BA [address] [address]JG: 04/17/2018 Secondary NOT GIVENUNK [place] Insurance:SELF PAY [facility] Number: Effective Repository Date:2018-04-15 01/30/2018 Edna Lorenzo Primary Edna Lorenzo [place] [id number] Insurance:MEDICAL KirkerDOB: [facility] [id number] [facility] [place] Number: Repository [address]Ens: 330 [id number] [phone]) Date:8059-60-53KS [address] [address]RZ: 01/30/2018 Secondary NOT GIVENUNK [place] Insurance:SELF PAY [facility] Hospital Number: Effective Repository Date:2018-01-30 01/16/2018 Edna Lorenzo Primary Edna Lorenzo Yenifer [id number] Insurance:MEDICAL KirkerDOB: [facility] [id number] [facility] Number: Repository [address]Apy: 330 [id number] [phone] (HP) Date:5571-35-49QH [address] [address]KG: 01/16/2018 Secondary NOT GIVENUNK [place] Insurance:SELF PAY [facility] Number: Effective Repository Date:2018-01-16 01/16/2018 Edna Lorenzo Primary Edna Lorenzo [place] [id number] Insurance:MEDICAL KirkerDOB: [facility] [id number] [facility] [place] Number: Repository [id number]: 330 [id number] [phone] (HP) Date:1119-58-20EI [address] [address]WP: 01/16/2018 Secondary NOT GIVENUNK [place] Insurance:SELF PAY [facility] Number: Effective Repository Date:2018-01-16
== END ==
PROVIDERS: Family Provider Family Medicine Geriatric Medicine; PCP Family Medicine Geriatric Medicine; Referring Provider Allergy & Immunology; Visit Provider Allergy & Immunology
DX: D83.9 Common variable immunodeficiency, unspecified (principal)
CPT/HCPCS: 36415; 85025

== ENCOUNTER → 2018-11-20 07:26 | Outpatient (CLI) | payer OTHER, SELFPAY ==
[2018-11-20 08:23] LABS: Absolute Lymphocyte Count 0.83 X10^3/ul (0.83-4.51); Absolute Neutrophil Count 2.4 X10^3/uL (2.0-7.7); Basophil# 0.01 X10^3/uL; Basophil% 0.3 % (0-1); Eosinophil# 0.08 X10^3/uL; Eosinophils% 2.2 % (0-5); Hematocrit 45.6 % (37-47); Hemoglobin 14.3 g/dl (12.0-15.0); Lymphocyte # 0.83 X10^3/ul (4.0); Lymphocyte % 22.9 % (19-41); Mean Corp Hgb Conc 31.4 g/gl (32-36); Mean Corpuscular Volume 95.6 fL (81-99); Monocyte# 0.33 X10^3/uL; Monocyte% 9.1 % (0-10); Neutrophil # 2.36 X10^3/uL (2.7-7.7); Neutrophil % 65.2 % (47-70); Platelet Count 55 K/mm3 (150-450); RBC Distribution Width CV 15.4 % (11.6-14.6); RBC Distribution Width SD 52.8 fl (35.1-43.9); Red Blood Count 4.77 M/mm3 (4.2-5.4); White Blood Count 3.6 K/mm3 (4.4-11.0)
[2018-11-20 08:24] LABS: POSITIVE COUNT NO; POSITIVE DIFFERENTIAL NO; POSITIVE MORPHOLOGY NO
[2018-11-20 08:48] LABS: ALB/GLOB Ratio 1.1 RATIO (0.9-2.4); AST(SGOT) 111 U/L (15-37); Alanine Aminotransfer ALT/SGPT 101 U/L (13-56); Albumin, Serum 3.1 g/dL (3.2-5.0); Alkaline Phosphatase 235 U/L (45-117); Anion Gap 8 (5-15); BUN 12 mg/dL (7-18); Calcium,Total 8.5 mg/dL (8.5-10.1); Chloride 108 mmol/L (98-107); Creatinine, Serum 0.54 mg/dL (0.55-1.02); EST Glomerular Filtration Rate 121 mL/min (>60); Est Glom Filt Rate - Afr Amer 147 mL/min (>60); Globulin 2.9 g/dL (2.2-4.2); Glucose 89 mg/dL (74-106); Potassium 4.3 mmol/L (3.5-5.1); Sodium Level 142 mmol/L (136-145)
== END ==
PROVIDERS: Family Provider Family Medicine Geriatric Medicine; PCP Family Medicine Geriatric Medicine
DX: D83.9 Common variable immunodeficiency, unspecified (principal); D69.6 Thrombocytopenia, unspecified; K74.3 Primary biliary cirrhosis
CPT/HCPCS: 36415; 80053; 85025

== ENCOUNTER → 2019-02-22 11:07 | Outpatient (CLI) | payer OTHER, SELFPAY ==
[2019-02-22 12:07] LABS: Absolute Lymphocyte Count 1.06 X10^3/ul (0.83-4.51); Absolute Neutrophil Count 2.7 X10^3/uL (2.0-7.7); Eosinophil# 0.02 X10^3/uL; Eosinophils% 0.5 % (0-5); Hematocrit 45.3 % (37-47); Lymphocyte # 1.06 X10^3/ul (4.0); Lymphocyte % 25.8 % (19-41); Mean Corp Hgb Conc 33.1 g/gl (32-36); Mean Corpuscular Hgb 31.1 pg (27.0-32.0); Mean Corpuscular Volume 93.8 fL (81-99); Mean Platelet Vol. 11.8 fl (6.2-12.0); Monocyte# 0.32 X10^3/uL; Monocyte% 7.8 % (0-10); Neutrophil # 2.71 X10^3/uL (2.7-7.7); Neutrophil % 65.9 % (47-70); Platelet Count 63 K/mm3 (150-450); RBC Distribution Width SD 51.5 fl (35.1-43.9); Red Blood Count 4.83 M/mm3 (4.2-5.4); White Blood Count 4.1 K/mm3 (4.4-11.0)
[2019-02-22 12:12] LABS: POSITIVE COUNT NO; POSITIVE DIFFERENTIAL NO; POSITIVE MORPHOLOGY NO
[2019-02-22 12:26] LABS: ALB/GLOB Ratio 0.9 RATIO (0.9-2.4); AST(SGOT) 55 U/L (15-37); Alanine Aminotransfer ALT/SGPT 55 U/L (13-56); Alkaline Phosphatase 103 U/L (45-117); Anion Gap 7 (5-15); BUN 10 mg/dL (7-18); BUN/Creat Ratio 18.6 RATIO (10-20); Calcium,Total 8.6 mg/dL (8.5-10.1); Chloride 108 mmol/L (98-107); Creatinine, Serum 0.54 mg/dL (0.55-1.02); EST Glomerular Filtration Rate 123 mL/min (>60); Est Glom Filt Rate - Afr Amer 149 mL/min (>60); Globulin 3.2 g/dL (2.2-4.2); Glucose 104 mg/dL (74-106); Potassium 3.7 mmol/L (3.5-5.1); Protein, Total 6.2 g/dL (6.4-8.2); Sodium Level 143 mmol/L (136-145)
[2019-02-23 13:55] LABS: Immunoglobulin G 915 mg/dL (700-1600)
== END ==
PROVIDERS: Family Provider Family Medicine Geriatric Medicine; PCP Family Medicine Geriatric Medicine; Referring Provider Allergy & Immunology; Visit Provider Allergy & Immunology
DX: D83.9 Common variable immunodeficiency, unspecified (principal)
CPT/HCPCS: 36415; 80053; 82248; 82784; 84156; 85025

== ENCOUNTER → 2019-03-17 15:52 | Outpatient (CLI) | payer OTHER, SELFPAY ==
--- NOTE | 2019-03-17 16:00 | RAD_ITS ---
STUDY: X-RAY CHEST REASON FOR EXAM: Female, 58 years old. Shortness of breath. TECHNIQUE: Frontal and lateral views of the chest. COMPARISON: 07/17/2016 FINDINGS: The lungs are hyperexpanded. There are coarsened interstitial markings suggestive of mild chronic fibrosis. No gross focal infiltrates. No gross effusions. Normal size heart. Normal mediastinum and mikala. Normal visualized pulmonary arteries. Normal visualized aortic arch and descending thoracic aorta. There are diffuse degenerative changes of the visualized thoracic spine. Normal visualized ribs, clavicles, and shoulders. There is no demonstrated abnormality of the visualized soft tissue structures of the upper abdomen. RAD/Chest PA and Lateral IMPRESSION: There are findings consistent with COPD. There is no evidence of acute chest disease. Electronically Signed: Jaswinder Moran MD at 16:55 EDT , Service support ,
== END ==
PROVIDERS: Family Provider Family Medicine Geriatric Medicine; PCP Family Medicine Geriatric Medicine; Referring Provider Family Medicine Geriatric Medicine; Visit Provider Family Medicine Geriatric Medicine
DX: R06.02 Shortness of breath (principal); R50.9 Fever, unspecified
CPT/HCPCS: 71046; 87633

== ENCOUNTER → 2019-04-28 08:32 | Outpatient (CLI) | payer OTHER, SELFPAY ==
--- NOTE | 2019-04-28 08:34 | US_ITS ---
HISTORY: hx of cirrhosis, PBC TECHNIQUE: Rios scale and color doppler imaging was performed of the pancreas, liver, and gallbladder. COMPARISON: None FINDINGS: # of images incl. paperwork: 127 The liver is heterogeneous in echotexture with peripheral lobulations, likely representing cirrhosis. No gallstones, gallbladder wall thickening or biliary dilatation. Gallbladder wall measures 3 mm. Common bile duct measures 3 mm. No tenderness upon insonation the gallbladder. Visualized pancreas is normal in appearance. Right kidney has several benign cysts. One of these measures 19 x 24 mm. Another measures 16 x 17 mm. A third measures 12 x 15 mm.. Visualized abdominal aorta has normal caliber. IVC is patent. Hepatopedal flow is present within the central portal vein. US/Liver IMPRESSION: Slightly coarse echotexture of the liver. This may be due to cirrhosis. Several right renal cysts.. at 0025 Reported and signed by: Lee Wallace MD Electronically Signed: Lee Wallace MD at 0:24 EDT Tel , Service support ,
== END ==
PROVIDERS: Family Provider Family Medicine Geriatric Medicine; PCP Family Medicine Geriatric Medicine; Referring Provider Internal Medicine Gastroenterology; Visit Provider Internal Medicine Gastroenterology
DX: K74.60 Unspecified cirrhosis of liver (principal)
CPT/HCPCS: 76705

== ENCOUNTER → 2019-05-05 15:18 | Outpatient (CLI) | payer OTHER, SELFPAY | PROVIDERS: Family Provider Family Medicine Geriatric Medicine; PCP Family Medicine Geriatric Medicine; Referring Provider Family Medicine Geriatric Medicine; Visit Provider Family Medicine Geriatric Medicine | DX: R68.83 Chills (without fever) (principal) | CPT/HCPCS: 87633 ==

== ENCOUNTER → 2019-05-21 11:37 | Outpatient (CLI) | payer OTHER, SELFPAY ==
[2019-05-22 13:07] LABS: AFP, Tumor Marker 1.8 ng/mL (0.0-8.3)
== END ==
PROVIDERS: Family Provider Family Medicine Geriatric Medicine; PCP Family Medicine Geriatric Medicine; Referring Provider Internal Medicine Gastroenterology; Visit Provider Internal Medicine Gastroenterology
DX: K74.3 Primary biliary cirrhosis (principal); K74.60 Unspecified cirrhosis of liver
CPT/HCPCS: 36415; 82105

== ENCOUNTER → 2019-05-28 08:15 | Outpatient (CLI) | payer OTHER, SELFPAY ==
--- NOTE | 2019-05-28 08:21 | BD_ITS ---
STUDY: DUAL ENERGY X-RAY ABSORPTIOMETRY / DXA REASON FOR EXAM: Female, 59 years old. The patient is postmenopausal. Loss of height. TECHNIQUE: Bone Mineral Density (BMD) measurements of lumbar spine and bilateral hips were obtained. COMPARISON: Comparison is made with prior study dated September 28, 2011. FINDINGS: Lumbar Spine (L1-L4): g/cm2 (0.946) / T-score (-2.0) / Z-score (-0.8) Findings are suggestive of osteopenia with a moderate fracture risk. Left Femur Total: g/cm2 (0.668) / T-score (-2.7) / Z-score (-1.8) Left Femoral Neck: g/cm2 (0.734) / T-score (-2.2) / Z-score (-1.0) Right Femur Total: g/cm2 (0.648) / T-score (-2.9) / Z-score (-1.9) Right Femoral Neck: g/cm2 (0.787) / T-score (-1.8) / Z-score (-0.6) The T-Scores on the most recent prior examination were: Lumbar Spine (L1-L4): There has been worsening of bone density since the previous examination. Left Femur Total: which represents a worsening of 24.9%. Right Femur Total: which represents a worsening of 24.5%. BD/Dexa Bone Density Study IMPRESSION: The patient is considered osteoporotic as outlined below according to World Son Organization (WHO) criteria with a high fracture risk. There has been worsening of bone density since the previous examination. Reference Information: The T-score is the number of standard deviations above or below the standard which is normal for young adults at their peak bone mineral density. The World Health Organization (WHO) interprets the T-scores as follows: Above -1 Normal bone density Between -1 and -2.5 Osteopenia Equal to / or below -2.5 Osteoporosis As a practical clinical guideline, osteopenia may be graded as follows: Mild -1 through -1.5 Moderate -1.6 through -2.0 Severe -2.1 through -2.4 The Z-score is the number of standard deviations above or below age-matched controls. A Z-score of less than -1.5 would be considered abnormal. References: 1. NIH Osteoporosis and Related Bone Diseases http://www.osteo.org 2. International Society for Clinical Densitometry http://www.iscd.org 3. National Osteoporosis Foundation http://www.nof.org Electronically Signed: Edgardo George, at 12:43 EDT , Service support ,
[2019-05-28 11:11] LABS: Prothrombin Time (Protime)PT. 13.3 SECONDS (11.7-14.9)
[2019-05-28 11:30] LABS: ALB/GLOB Ratio 0.8 RATIO (0.9-2.4); AST(SGOT) 37 U/L (15-37); Alanine Aminotransfer ALT/SGPT 41 U/L (13-56); Albumin, Serum 2.9 g/dL (3.2-5.0); Alkaline Phosphatase 117 U/L (45-117); Anion Gap 3 (5-15); BUN 14 mg/dL (7-18); BUN/Creat Ratio 24.2 RATIO (10-20); Calcium,Total 8.6 mg/dL (8.5-10.1); Chloride 106 mmol/L (98-107); Creatinine, Serum 0.58 mg/dL (0.55-1.02); EST Glomerular Filtration Rate 113 mL/min (>60); Est Glom Filt Rate - Afr Amer 137 mL/min (>60); Globulin 3.5 g/dL (2.2-4.2); Glucose 104 mg/dL (74-106); Protein, Total 6.4 g/dL (6.4-8.2); Sodium Level 140 mmol/L (136-145)
[2019-06-02 13:03] LABS: AFP, Tumor Marker 1.8 ng/mL (0.0-8.3)
[2019-06-02 13:34] LABS: Vitamin D 1,25-Dihydroxy 39.7 pg/mL (19.9-79.3)
== END ==
PROVIDERS: Family Provider Family Medicine Geriatric Medicine; PCP Family Medicine Geriatric Medicine; Referring Provider Internal Medicine Gastroenterology; Visit Provider Internal Medicine Gastroenterology
DX: K75.89 Other specified inflammatory liver diseases (principal); K74.3 Primary biliary cirrhosis; K74.60 Unspecified cirrhosis of liver; D69.6 Thrombocytopenia, unspecified; R16.0 Hepatomegaly, not elsewhere classified; M81.0 Age-related osteoporosis without current pathological fracture; Z78.0 Asymptomatic menopausal state
CPT/HCPCS: 36415; 77080; 80053; 82105; 82652; 85610

== ENCOUNTER → 2019-08-18 14:35 | Outpatient (CLI) | payer OTHER, SELFPAY ==
--- NOTE | 2019-08-18 14:37 | BI_ITS ---
MAMMOGRAPHY - BILATERAL SCREENING REASON FOR EXAM: Female, 59 years old. Routine annual screening examination. PERTINENT HISTORY: Mother with breast cancer. Aunt with breast cancer. TECHNIQUE: Digital bilateral breast rafael (3D mammographic acquisition) in the CC and MLO projections. 2-D mediolateral oblique (MLO) and craniocaudad (CC) views of both breasts were obtained. CAD: Full Field Digital Mammography with Computer Added Detection was performed. COMPARISON: Comparison is made with prior study dated August 05, 2018 and August 30, 2016. FINDINGS: Breast Composition: The breasts are heterogeneously dense, which may obscure small masses. There are no dominant masses or suspicious calcifications. No other significant abnormalities are identified. There has been no significant change since the prior study. BI/SCREEN MAMM (CAD) W/RAFAEL BILAT IMPRESSION: Stable bilateral screening mammogram. Yearly follow-up mammogram recommended. (A) ASSESSMENT CATEGORY: BIRADS Category 2: Benign. A letter regarding these results will be sent to the patient by the facility within 30 days. Approximately 10% of breast cancers are not detected by mammography. A normal mammogram should not delay biopsy of a clinically suspicious abnormality. [id number] Electronically Signed: Edgardo George, at 15:48 EST , Service support ,
== END ==
PROVIDERS: Family Provider Family Medicine Geriatric Medicine; PCP Family Medicine Geriatric Medicine; Referring Provider Family Medicine Geriatric Medicine; Visit Provider Family Medicine Geriatric Medicine
DX: Z12.31 Encounter for screening mammogram for malignant neoplasm of breast (principal); Z80.3 Family history of malignant neoplasm of breast
CPT/HCPCS: 77063; 77067

== ENCOUNTER → 2019-09-05 10:30 | Outpatient (CLI) | payer OTHER, SELFPAY ==
[2019-09-05 12:14] LABS: AST(SGOT) 36 U/L (15-37); Alanine Aminotransfer ALT/SGPT 40 U/L (13-56); Albumin, Serum 3.2 g/dL (3.2-5.0); Alkaline Phosphatase 96 U/L (45-117); Anion Gap 3 (5-15); BUN 12 mg/dL (7-18); Bilirubin, Direct 0.18 mg/dL (0.00-0.30); Chloride 110 mmol/L (98-107); Creatinine, Serum 0.54 mg/dL (0.55-1.02); EST Glomerular Filtration Rate 123 mL/min (>60); Est Glom Filt Rate - Afr Amer 149 mL/min (>60); Globulin 2.9 g/dL (2.2-4.2); Potassium 3.9 mmol/L (3.5-5.1); Protein, Total 6.1 g/dL (6.4-8.2); Sodium Level 141 mmol/L (136-145)
[2019-09-05 12:29] LABS: Absolute Neutrophil Count 2.1 X10^3/uL (2.0-7.7); Basophil# 0.01 X10^3/uL; Basophil% 0.3 % (0-1); Differential Indicated SCAN CRITERIA MET; Eosinophil# 0.06 X10^3/uL; Eosinophils% 1.8 % (0-5); Hematocrit 46.4 % (37-47); Hemoglobin 15.1 g/dL (12.0-15.0); Lymphocyte % 24.5 % (19-41); Mean Corp Hgb Conc 32.5 g/dL (32-36); Mean Corpuscular Hgb 31.1 pg (27.0-32.0); Mean Corpuscular Volume 95.5 fL (81-99); Mean Platelet Vol. 11.5 fl (6.2-12.0); Monocyte# 0.28 X10^3/uL; Monocyte% 8.6 % (0-10); NRBC Flagged by Analyzer 0 % (0-5); Neutrophil # 2.11 X10^3/uL (2.7-7.7); Neutrophil % 64.5 % (47-70); POSITIVE COUNT YES; Platelet Count 62 K/mm3 (150-450); RBC Distribution Width CV 13.5 % (11.6-14.6); RBC Distribution Width SD 47.8 fl (35.1-43.9); Red Blood Count 4.86 M/mm3 (4.2-5.4); White Blood Count 3.3 K/mm3 (4.4-11.0)
[2019-09-05 13:21] LABS: Platelet Estimate MKD DEC (ADEQ); Red Cell Morphology NORM C+C NORMAL (NORM C&C)
[2019-09-06 13:45] LABS: Immunoglobulin G 858 mg/dL (700-1600)
== END ==
PROVIDERS: Family Provider Family Medicine Geriatric Medicine; PCP Family Medicine Geriatric Medicine; Referring Provider Allergy & Immunology; Visit Provider Allergy & Immunology
DX: D83.9 Common variable immunodeficiency, unspecified (principal)
CPT/HCPCS: 36415; 80051; 80076; 82565; 82784; 84520; 85025

== ENCOUNTER → 2019-09-16 10:55 | Outpatient (CLI) | payer OTHER, SELFPAY ==
[2019-09-16 13:01] LABS: Thyroid Stim Hormone (TSH) 2.25 uIU/mL (0.358-3.74)
[2019-09-16 13:04] LABS: Vitamin D,25 Hydroxy 38.4 ng/mL (29.95-100.01)
== END ==
PROVIDERS: Family Provider Family Medicine Geriatric Medicine; PCP Family Medicine Geriatric Medicine; Visit Provider Family Medicine Geriatric Medicine
DX: E55.9 Vitamin D deficiency, unspecified (principal); R53.83 Other fatigue
CPT/HCPCS: 36415; 82306; 84443

== ENCOUNTER → 2019-09-24 07:52 | Outpatient (CLI) | payer OTHER, SELFPAY ==
--- NOTE | 2019-09-24 15:19 | PFTCOMP ---
COMPLETE PULMONARY FUNCTION TEST INTERPRETATION Brief HPI: Patient is a 59 year old female, currently under the care of Dr. Borges, who presents to [facility] for complete pulmonary function tests secondary to diagnosis of asthma. Respiratory therapist reports good effort and reproducible results. Interpretation: Forced expiration spirometry shows a mild large airways obstructive ventilatory defect with an FEV1 of 70% predicted. There is no significant bronchodilator response by strict ATS criteria. Spirograms are of good quality and plateau slowly, indicating slowly emptying areas of the lungs. The respiratory flow volume loop shows decreased expiratory flow rates at all lung volumes consistent with airway obstruction. Lung volumes by body plethysmography show a normal total lung capacity at 5.84 L, 115% predicted. All other lung volumes are within normal limits. Diffusion capacity by carbon monoxide is normal at 110% predicted. The airway resistance is elevated. No previous pulmonary function tests were available for review. Impression: Irreversible mild large airways obstructive ventilatory defect in a pattern consistent with chronic bronchitis
== END ==
PROVIDERS: Family Provider Family Medicine Geriatric Medicine; PCP Family Medicine Geriatric Medicine
DX: J45.40 Moderate persistent asthma, uncomplicated (principal)
CPT/HCPCS: 94060; 94726; 94729

== ENCOUNTER → 2019-11-19 06:16 | Outpatient (CLI) | payer OTHER, SELFPAY ==
--- NOTE | 2019-11-19 06:38 | MRI_ITS ---
STUDY: MRI ABDOMEN WITH AND WITHOUT CONTRAST REASON FOR EXAM: Female, 59 years old. cirrhosis,pbc TECHNIQUE: Standardized fat and water weighted pulse sequences were obtained in all 3 orthogonal planes post contrast administration. IV DOTAREM 13ML was administered for the contrast portion of the examination. COMPARISON: CT 07/10/2018 FINDINGS: The visualized lung bases are unremarkable. The visualized portions of the heart are within normal limits. 1 cm cyst in the posterior segment the right lobe of the liver superiorly. Normal gallbladder and extrahepatic biliary system. There is moderate splenomegaly. Normal pancreas. Normal bilateral adrenal glands. Multiple small bilateral renal cysts. The largest cyst is in the lower pole right kidney measures 2.5 cm in diameter. Normal left kidney. Normal visualized stomach. Normal small intestine. Normal colon. There is non-visualization of the appendix. Normal abdominal aorta. Normal inferior vena cava. Multiple portosystemic shunts within the retroperitoneum consistent with cirrhosis. Normal abdominal wall. Normal osseous structures. MRI/MRI Abd WITH and W/O Contrast IMPRESSION: 1. While liver itself does not appear very cirrhotic, there are portosystemic shunts and splenic megaly suggestive of portal hypertension. No hepatic mass except for a 1 cm cyst in the posterior segment the right lobe of the liver which is unchanged. 2. Multiple small bilateral renal cysts. Electronically Signed: Mj Lynch MD at 8:19 EST Tel , Service support ,
[2019-11-19 08:06] LABS: CREATININE FINGERSTICK < 0.6 mg/dL (0.55-1.02); EGFR FINGERSTICK > 60.0000 mL/min (>60)
== END ==
PROVIDERS: PCP Family Medicine Geriatric Medicine; Referring Provider Internal Medicine Gastroenterology; Visit Provider Internal Medicine Gastroenterology
DX: K74.60 Unspecified cirrhosis of liver (principal); K74.3 Primary biliary cirrhosis
CPT/HCPCS: 74183; A9575

== ENCOUNTER → 2019-11-21 13:55 | Outpatient (CLI) | payer OTHER, SELFPAY ==
[2019-11-21 15:21] LABS: Hematocrit 44.7 % (37-47); Hemoglobin 14.4 g/dL (12.0-15.0); Mean Corp Hgb Conc 32.2 g/dL (32-36); Mean Corpuscular Volume 93.1 fL (81-99); Mean Platelet Vol. 11.8 fl (6.2-12.0); POSITIVE COUNT YES; Platelet Count 71 K/mm3 (150-450); RBC Distribution Width CV 14.4 % (11.6-14.6); RBC Distribution Width SD 49.3 fl (35.1-43.9); White Blood Count 3.9 K/mm3 (4.4-11.0)
[2019-11-21 15:22] LABS: Scan Indicated on CBC? Y/N YES- FLAGS NOTED
[2019-11-21 15:29] LABS: Prothrombin Time (Protime)PT. 12.7 SECONDS (11.7-14.9)
[2019-11-21 15:30] LABS: Partial Thromboplast Time 25.5 Seconds (24.1-36.2)
[2019-11-21 15:42] LABS: ALB/GLOB Ratio 0.9 RATIO (0.9-2.4); AST(SGOT) 41 U/L (15-37); Alanine Aminotransfer ALT/SGPT 42 U/L (13-56); Albumin, Serum 3.2 g/dL (3.2-5.0); Alkaline Phosphatase 103 U/L (45-117); Anion Gap 4 (5-15); BUN 13 mg/dL (7-18); BUN/Creat Ratio 24.4 RATIO (10-20); Calcium,Total 8.7 mg/dL (8.5-10.1); Chloride 109 mmol/L (98-107); Creatinine, Serum 0.53 mg/dL (0.55-1.02); EST Glomerular Filtration Rate 124 mL/min (>60); Est Glom Filt Rate - Afr Amer 150 mL/min (>60); Globulin 3.4 g/dL (2.2-4.2); Glucose 95 mg/dL (74-106); Potassium 4.1 mmol/L (3.5-5.1); Protein, Total 6.6 g/dL (6.4-8.2); Sodium Level 140 mmol/L (136-145)
[2019-11-24 19:26] LABS: AFP, Tumor Marker 2.1 ng/mL (0.0-8.3)
== END ==
PROVIDERS: PCP Family Medicine Geriatric Medicine; Referring Provider Internal Medicine Gastroenterology; Visit Provider Internal Medicine Gastroenterology
DX: K74.60 Unspecified cirrhosis of liver (principal)
CPT/HCPCS: 36415; 80053; 82105; 85027; 85610; 85730

== ENCOUNTER → 2020-03-30 10:44 | Outpatient (CLI) | payer OTHER, SELFPAY ==
[2020-03-30 13:06] LABS: Absolute Lymphocyte Count 0.81 X10^3/uL (0.83-4.51); Absolute Neutrophil Count 2.5 X10^3/uL (2.0-7.7); Basophil# 0.01 X10^3/uL; Basophil% 0.3 % (0-1); Eosinophils% 2.7 % (0-5); Hematocrit 46.6 % (37-47); Hemoglobin 14.8 g/dL (12.0-15.0); Lymphocyte # 0.81 X10^3/ul (4.0); Lymphocyte % 21.7 % (19-41); Mean Corp Hgb Conc 31.8 g/dL (32-36); Mean Corpuscular Hgb 30.8 pg (27.0-32.0); Mean Corpuscular Volume 97.1 fL (81-99); Monocyte# 0.29 X10^3/uL; Monocyte% 7.8 % (0-10); NRBC Flagged by Analyzer 0 % (0-5); Neutrophil # 2.52 X10^3/uL (2.7-7.7); Neutrophil % 67.2 % (47-70); POSITIVE COUNT YES; Platelet Count 56 K/mm3 (150-450); RBC Distribution Width CV 13.8 % (11.6-14.6); RBC Distribution Width SD 49.6 fl (35.1-43.9); White Blood Count 3.7 K/mm3 (4.4-11.0)
[2020-03-30 13:29] LABS: AST(SGOT) 38 U/L (15-37); Alanine Aminotransfer ALT/SGPT 38 U/L (13-56); Albumin, Serum 3.2 g/dL (3.2-5.0); Alkaline Phosphatase 112 U/L (45-117); Anion Gap 4 (5-15); BUN 14 mg/dL (7-18); BUN/Creat Ratio 30.8 RATIO (10-20); Calcium,Total 8.4 mg/dL (8.5-10.1); Chloride 108 mmol/L (98-107); Creatinine, Serum 0.45 mg/dL (0.55-1.02); EST Glomerular Filtration Rate 149 mL/min (>60); Est Glom Filt Rate - Afr Amer 180 mL/min (>60); Globulin 3.2 g/dL (2.2-4.2); Glucose 75 mg/dL (74-106); Protein, Total 6.4 g/dL (6.4-8.2); Sodium Level 140 mmol/L (136-145)
[2020-03-31 14:38] LABS: Immunoglobulin G 988 mg/dL (586-1602)
== END ==
PROVIDERS: PCP Family Medicine Geriatric Medicine
DX: D83.9 Common variable immunodeficiency, unspecified (principal)
CPT/HCPCS: 36415; 80053; 82784; 85025

== ENCOUNTER → 2020-06-21 08:08 | Outpatient (CLI) | payer OTHER, SELFPAY ==
--- NOTE | 2020-06-21 08:12 | CT_ITS ---
STUDY: CT ABDOMEN WITH CONTRAST REASON FOR EXAM: Female, 60 years old. CIRRHOSIS X 13-14 YRS, PREV C-SECTIONS X 2, NO OTHER MED HX RADIATION DOSAGE (If Supplied By Facility): CTDIvol = ( 26.82 ) mGy, DLP = ( 368.15 ) mGycm TECHNIQUE: Transaxial images were obtained post I.V. administration of Oral and amp; IV Readi-CAT and amp; 100mL Isovue-300, and oral contrast. Sagittal and coronal images were reconstructed. Individualized dose optimization techniques were used for this CT. COMPARISON: None. FINDINGS: The visualized lung bases are unremarkable. The visualized portions of the heart are within normal limits. There is a diffuse contour abnormality of the liver consistent with cirrhotic changes. There are portosystemic shunts and splenic megaly suggestive of portal hypertension. No hepatic mass except for a 1 cm cyst in the segment #7 near the dome of the right lobe of the liver which is unchanged. Normal gallbladder and extrahepatic biliary system. Normal spleen. Normal pancreas. Normal bilateral adrenal glands. Multiple small bilateral renal cysts. The largest cyst is in the lower pole right kidney measures 3 cm in diameter. Normal left kidney. Normal visualized stomach. Normal small intestine. Normal colon. The appendix is visualized and appears normal. Normal abdominal aorta. Normal inferior vena cava. Normal retroperitoneum. Normal abdominal wall. Normal osseous structures. CT/Abdomen WITH IV Contrast IMPRESSION: There is a diffuse contour abnormality of the liver consistent with cirrhotic changes. There are portosystemic shunts and splenic megaly suggestive of portal hypertension. No hepatic mass except for a 1 cm cyst in the segment #7 near the dome of the right lobe of the liver which is unchanged. Multiple small bilateral renal cysts. The largest cyst is in the lower pole right kidney measures 2.5 cm in diameter. Electronically Signed: Marci Rodriguez, at 9:29 EDT Tel , Service support ,
[2020-06-21 08:41] LABS: CREATININE FINGERSTICK < 0.6 mg/dL (0.55-1.02)
[2020-06-21 10:08] LABS: Hematocrit 44.7 % (37-47); Hemoglobin 14.4 g/dL (12.0-15.0); Mean Corp Hgb Conc 32.2 g/dL (32-36); Mean Corpuscular Hgb 30.8 pg (27.0-32.0); Mean Corpuscular Volume 95.7 fL (81-99); Mean Platelet Vol. 11.9 fl (6.2-12.0); POSITIVE COUNT YES; Platelet Count 61 K/mm3 (150-450); RBC Distribution Width CV 14.2 % (11.6-14.6); RBC Distribution Width SD 49.8 fl (35.1-43.9); Red Blood Count 4.67 M/mm3 (4.2-5.4); White Blood Count 2.7 K/mm3 (4.4-11.0)
[2020-06-21 10:21] LABS: International Normalized Ratio 1.1; Partial Thromboplast Time 25.4 Seconds (24.1-36.2); Prothrombin Time (Protime)PT. 13.2 SECONDS (11.7-14.9)
[2020-06-21 10:39] LABS: AST(SGOT) 43 U/L (15-37); Alanine Aminotransfer ALT/SGPT 43 U/L (13-56); Albumin, Serum 3.1 g/dL (3.2-5.0); Alkaline Phosphatase 104 U/L (45-117); Anion Gap 0 (5-15); BUN 11 mg/dL (7-18); BUN/Creat Ratio 20.6 RATIO (10-20); Calcium,Total 8.4 mg/dL (8.5-10.1); Chloride 108 mmol/L (98-107); Creatinine, Serum 0.53 mg/dL (0.55-1.02); EST Glomerular Filtration Rate 124 mL/min (>60); Est Glom Filt Rate - Afr Amer 150 mL/min (>60); Glucose 77 mg/dL (74-106); Protein, Total 6.1 g/dL (6.4-8.2); Sodium Level 138 mmol/L (136-145)
[2020-06-22 07:57] LABS: AFP, Tumor Marker 1.9 ng/mL (0.0-8.3)
== END ==
PROVIDERS: PCP Family Medicine Geriatric Medicine; Referring Provider Internal Medicine Gastroenterology; Visit Provider Internal Medicine Gastroenterology
DX: K74.60 Unspecified cirrhosis of liver (principal)
CPT/HCPCS: 36415; 74160; 80053; 82105; 85027; 85610; 85730; Q9967

== ENCOUNTER 2020-09-02 08:50 | Emergency (ER) | payer OTHER, SELFPAY ==
[2020-09-02 08:51] VITALS: BP 135/66; PULSE 87; RESP 16; TEMP 36.1; O2SAT 98; BMI 24.2
[2020-09-02] MEDS: Lidocaine 1% (20 ml mdv) 20 ML Vial INFILT (09:28)
--- NOTE | 2020-09-02 09:38 | ED.VIS.LOWEX ---
History of Present Illness Chief Complaint: Lower Extremity Injury Narrative: Patient presenting for evaluation secondary to a left leg laceration. Patient's tetanus status is not up-to-date. Patient states that she was using a treadmill at her child's house and suffered a fall with a laceration to the left anterior portion of her lower leg. Mild to moderate pain, bleeding was controlled with pressure. No numbness or weakness. She denies any other injuries. Past Medical History - Allergies and Home Meds Allergies/Adverse Reactions: Allergies No Known Allergies Allergy (Verified 09/02/20 08:52) Primary Care Physician: Lionel Shukla Chi, MD [Primary Care Provider] - Prior records reviewed: Yes Past Medical History: - - Noncontributory Smoking Status: Former smoker Alcohol: None Drugs: None Review of Systems All systems negative except as indicated General: Denies: Chills Cardiovascular: Denies: Chest pain Respiratory: Denies: Dyspnea, Cough Gastrointestinal: Denies: Nausea, Vomiting Musculoskeletal: Denies: Extremity Pain Skin: Reports: Wounds. Denies: Rash Neurological: Denies: Weakness, Parasthesia Hematologic: Denies: Easy bruising, Easy bleeding Allergy: Denies: Uticaria Physical Exam Vital Signs/Narrative: Vital Signs Temp Pulse Resp BP Pulse Ox 09/02/20 08:51 96.9 F L 87 16 135/66 H 98 Inital Vital Signs reviewed: Yes - Extremity Exam Left Tib Fib: - - Left leg exam shows a large stellate laceration over the patient's anterior tib-fib area measuring about 6 cm transversely and 6 cm craniocaudally with exposed subcutaneous fat. Normal dorsiflexion and plantarflexion of the foot. Normal sensation over all dermatomes. Normal distal pulses. General: Well nourished, Well developed Head: Normocephalic, Atraumatic Eyes: Perrl, EOMI ENT: No Trauma Neck: Full ROM Cardiovascular: Regular rate, Regular rhythm, No murmurs Respiratory: No distress, CTA bilaterally, Chest nontender Skin: Normal color, No rash Neurological: Alert, Oriented x3, Cranial nerves II-XII grossly intact, Normal Strength, Normal Sensation Psychological: Normal affect Diagnostic/Tx/Re-eval - Medical Decision Making Patient presented with a leg laceration. Tetanus status was updated. Wound was addressed as noted in the procedure note. Patient will follow-up with primary care early next week for wound check, and in 14 days for suture removal. She understands signs and symptoms for which to return. Procedures Procedure(s): Complex laceration repair was performed on this patient. The wound was anesthetized using a total of 10 cc of 1% lidocaine. It was scrubbed with Shur-Clens and was copiously irrigated with saline under pressure. No evidence of foreign material is no evidence of violation of deep structures. Wound was then approximated. 4-0 nylon suture was utilized, 10 running sutures were placed on the transversely oriented laceration with good approximation. A total of 8 simple interrupted sutures were then utilized to approximate the craniocaudal laceration with moderate approximation under some tension. Patient tolerated this well. ED Disposition - Plan for ED Patient: Disposition: Home or Assisted Living Diagnosis: Laceration of left leg Instructions: ED Laceration: All Closures Referrals: Lionel Shukla Chi, MD [Primary Care Provider] - 2 Days for wound check Additional Instructions: Follow-up in 2 to 3 days for a wound check, and in 14 days for suture removal
[2020-09-02] MEDS: Diphth,Pertuss(Acell),Tet Vac 0.5 ML Vial IM (09:46)
--- NOTE | 2020-09-02 10:14 | ED.RN ---
[address] FOWLER
== END 2020-09-02 10:15 | disposition home or self-care (01) ==
LOC: ED 09:50
PROVIDERS: Emergency Provider Emergency Medicine; PCP Family Medicine Geriatric Medicine
DX: S81.812A Laceration without foreign body, left lower leg, initial encounter (principal); Z87.891 Personal history of nicotine dependence; W19.XXXA Unspecified fall, initial encounter
CPT/HCPCS: 13121; 13122; 90715; 99283

== ENCOUNTER → 2020-09-20 09:22 | Outpatient (CLI) | payer OTHER, SELFPAY ==
[2020-09-02 08:51] VITALS: BMI 24.2
[2020-09-20 12:57] LABS: AST(SGOT) 39 U/L (15-37); Absolute Lymphocyte Count 0.81 X10^3/uL (0.83-4.51); Absolute Neutrophil Count 3.2 X10^3/uL (2.0-7.7); Alanine Aminotransfer ALT/SGPT 42 U/L (13-56); Albumin, Serum 3.2 g/dL (3.2-5.0); Alkaline Phosphatase 145 U/L (45-117); Anion Gap 6 (5-15); BUN 13 mg/dL (7-18); BUN/Creat Ratio 24.3 RATIO (10-20); Basophil# 0.02 X10^3/uL; Basophil% 0.4 % (0-1); Calcium,Total 8.6 mg/dL (8.5-10.1); Chloride 109 mmol/L (98-107); Creatinine, Serum 0.53 mg/dL (0.55-1.02); EST Glomerular Filtration Rate 123 mL/min (>60); Eosinophil# 0.05 X10^3/uL; Eosinophils% 1.1 % (0-5); Est Glom Filt Rate - Afr Amer 149 mL/min (>60); Globulin 3.2 g/dL (2.2-4.2); Glucose 98 mg/dL (74-106); Hematocrit 45.4 % (37-47); Lymphocyte # 0.81 X10^3/ul (4.0); Mean Corpuscular Hgb 30.6 pg (27.0-32.0); Mean Corpuscular Volume 92.7 fL (81-99); Monocyte% 8.9 % (0-10); NRBC Flagged by Analyzer 0 % (0-5); Neutrophil % 71.2 % (47-70); POSITIVE COUNT YES; Platelet Count 73 K/mm3 (150-450); Potassium 4.3 mmol/L (3.5-5.1); Protein, Total 6.4 g/dL (6.4-8.2); RBC Distribution Width CV 14.1 % (11.6-14.6); Sodium Level 140 mmol/L (136-145); White Blood Count 4.5 K/mm3 (4.4-11.0)
== END ==
PROVIDERS: PCP Family Medicine Geriatric Medicine; Visit Provider Family Medicine Geriatric Medicine
DX: R53.83 Other fatigue (principal); E55.9 Vitamin D deficiency, unspecified
CPT/HCPCS: 36415; 80053; 82306; 84443; 85025

== ENCOUNTER → 2021-01-19 08:03 | Outpatient (CLI) | payer OTHER, SELFPAY ==
--- NOTE | 2021-01-19 08:04 | US_ITS ---
STUDY: ABDOMINAL ULTRASOUND - RIGHT UPPER QUADRANT REASON FOR VISIT: Female, 60 years old PBC TECHNIQUE: Ultrasound evaluation of the right upper quadrant was performed with real-time and static holm-scale imaging. TECHNICAL QUALITY: Adequate. COMPARISON: Comparison is made with prior examination dated 04/28/2019. FINDINGS: Liver: The liver measures 15 cm. There is a heterogeneous echogenicity of the liver. The bile ducts are within normal limits. There is hepatic color flow. The direction of portal flow is hepatopetal. There is no demonstrated mass lesion. Gallbladder: Normal distended gallbladder. The gallbladder wall measures 2 mm. There is a negative sonographic Hernandez''s sign. There is no pericholecystic fluid. There are no gallstones. Common Bile Duct (C.B.D.): The common bile duct measures 5 mm. Pancreas: Normal size of the head, body and tail of the pancreas. There is normal echogenicity of the pancreas. There is no demonstrated pancreatic mass or cyst. Right Kidney: Normal size of the right kidney. The right kidney measures 13.3 cm x 5.3 cm x 5.5 cm. Normal renal cortex. The right cortex measures 2.5 cm. 3 renal cysts are seen. The largest is in the lower pole of the right kidney and it measures 2.6 cm x 2.7 cm x 2.7 cm. There is no right hydronephrosis. US/Liver IMPRESSION: Heterogeneous hepatic echotexture. Right renal cysts. Electronically Signed: Edgardo George MD at 9:37 EDT , Service support ,
[2021-01-20 09:25] LABS: AFP, Tumor Marker 1.2 ng/mL (0.0-8.3)
== END ==
PROVIDERS: PCP Family Medicine Geriatric Medicine; Referring Provider Internal Medicine Gastroenterology; Visit Provider Internal Medicine Gastroenterology
DX: K74.3 Primary biliary cirrhosis (principal)
CPT/HCPCS: 36415; 76705; 82105

== ENCOUNTER → 2021-02-26 08:24 | Outpatient (CLI) | payer OTHER, SELFPAY ==
[2021-02-26 08:46] LABS: Absolute Lymphocyte Count 0.77 X10^3/uL (0.83-4.51); Absolute Neutrophil Count 1.7 X10^3/uL (2.0-7.7); Basophil# 0.01 X10^3/uL; Basophil% 0.3 % (0-1); Eosinophil# 0.08 X10^3/uL; Eosinophils% 2.8 % (0-5); Hematocrit 44.7 % (37-47); Hemoglobin 14.3 g/dL (12.0-15.0); Lymphocyte # 0.77 X10^3/ul (0.83-4.51); Lymphocyte % 26.9 % (19-41); Mean Corpuscular Volume 96.8 fL (81-99); Monocyte# 0.28 X10^3/uL; Monocyte% 9.8 % (0-10); NRBC Flagged by Analyzer 0 % (0-5); Neutrophil # 1.71 X10^3/uL (2.7-7.7); Neutrophil % 59.9 % (47-70); POSITIVE COUNT YES; Platelet Count 61 K/mm3 (150-450); RBC Distribution Width CV 14.6 % (11.6-14.6); RBC Distribution Width SD 52.3 fl (35.1-43.9); Red Blood Count 4.62 M/mm3 (4.2-5.4); White Blood Count 2.9 K/mm3 (4.4-11.0)
[2021-02-26 09:26] LABS: ALB/GLOB Ratio 1.1 RATIO (0.9-2.4); AST(SGOT) 38 U/L (15-37); Alanine Aminotransfer ALT/SGPT 35 U/L (13-56); Albumin, Serum 3.2 g/dL (3.2-5.0); Alkaline Phosphatase 84 U/L (45-117); Anion Gap 3 (5-15); BUN 12 mg/dL (7-18); BUN/Creat Ratio 20.2 RATIO (10-20); Calcium,Total 8.7 mg/dL (8.5-10.1); Chloride 111 mmol/L (98-107); Creatinine, Serum 0.59 mg/dL (0.55-1.02); EST Glomerular Filtration Rate 109 mL/min (>60); Est Glom Filt Rate - Afr Amer 132 mL/min (>60); Glucose 88 mg/dL (74-106); Potassium 4.2 mmol/L (3.5-5.1); Protein, Total 6.2 g/dL (6.4-8.2); Sodium Level 143 mmol/L (136-145)
[2021-02-27 09:17] LABS: Immunoglobulin G 975 mg/dL (586-1602)
== END ==
PROVIDERS: PCP Family Medicine Geriatric Medicine
DX: D83.9 Common variable immunodeficiency, unspecified (principal)
CPT/HCPCS: 36415; 80053; 82784; 85025

== ENCOUNTER → 2021-08-15 09:23 | Outpatient (CLI) | payer OTHER, SELFPAY ==
[2021-08-15 10:14] LABS: Absolute Neutrophil Count 2.2 X10^3/uL (2.0-7.7); Basophil# 0.01 X10^3/uL; Basophil% 0.3 % (0-1); Eosinophil# 0.07 X10^3/uL; Hematocrit 44.8 % (37-47); Hemoglobin 14.4 g/dL (12.0-15.0); Lymphocyte % 25.8 % (19-41); Mean Corp Hgb Conc 32.1 g/dL (32-36); Mean Corpuscular Hgb 30.3 pg (27.0-32.0); Mean Corpuscular Volume 94.3 fL (81-99); Mean Platelet Vol. 11.2 fl (6.2-12.0); Monocyte# 0.27 X10^3/uL; Monocyte% 7.7 % (0-10); NRBC Flagged by Analyzer 0 % (0-5); Neutrophil # 2.23 X10^3/uL (2.7-7.7); Neutrophil % 63.9 % (47-70); POSITIVE COUNT YES; Platelet Count 72 K/mm3 (150-450); RBC Distribution Width SD 48.8 fl (35.1-43.9); Red Blood Count 4.75 M/mm3 (4.2-5.4); White Blood Count 3.5 K/mm3 (4.4-11.0)
[2021-08-15 10:49] LABS: ALB/GLOB Ratio 0.8 RATIO (0.9-2.4); AST(SGOT) 46 U/L (15-37); Alanine Aminotransfer ALT/SGPT 47 U/L (13-56); Albumin, Serum 2.8 g/dL (3.2-5.0); Alkaline Phosphatase 132 U/L (45-117); Anion Gap 4 (5-15); BUN 13 mg/dL (7-18); BUN/Creat Ratio 27.3 RATIO (10-20); Calcium,Total 8.6 mg/dL (8.5-10.1); Chloride 106 mmol/L (98-107); Creatinine, Serum 0.48 mg/dL (0.55-1.02); EST Glomerular Filtration Rate 141 mL/min (>60); Est Glom Filt Rate - Afr Amer 170 mL/min (>60); Globulin 3.3 g/dL (2.2-4.2); Glucose 92 mg/dL (74-106); Potassium 3.9 mmol/L (3.5-5.1); Protein, Total 6.1 g/dL (6.4-8.2); Sodium Level 139 mmol/L (136-145)
[2021-08-16 08:55] LABS: Immunoglobulin G 843 mg/dL (586-1602)
== END ==
PROVIDERS: PCP Family Medicine Geriatric Medicine
DX: D83.9 Common variable immunodeficiency, unspecified (principal)
CPT/HCPCS: 36415; 80053; 82784; 85025

== ENCOUNTER 2021-09-08 14:35 | Outpatient (CLI) | payer OTHER, SELFPAY ==
[2021-09-08 14:36] VITALS: BP 119/60; PULSE 72; RESP 16; TEMP 36.4; O2SAT 100; BMI 26.1
[2021-09-08] MEDS: 0.9% Saline Lock 10 ML Syringe IV (14:41)
[2021-09-08 15:18] VITALS: BP 106/52; PULSE 69; RESP 16; TEMP 36.6; O2SAT 100
[2021-09-08 16:01] VITALS: BP 111/54; PULSE 66; RESP 16; TEMP 36.7; O2SAT 98
== END 2021-09-08 16:19 | disposition home or self-care (01) ==
LOC: MS3OUT 14:35 → MS3 14:36
PROVIDERS: PCP Family Medicine Geriatric Medicine; Referring Provider Nurse Practitioner Adult Health; Visit Provider Nurse Practitioner Adult Health
DX: Z23 Encounter for immunization (principal); U07.1 COVID-19
CPT/HCPCS: J7050; M0245; Q0245; A4216

== ENCOUNTER → 2021-09-16 12:07 | Outpatient (CLI) | payer OTHER, SELFPAY ==
--- NOTE | 2021-09-16 12:42 | RAD_ITS ---
STUDY: X-RAY CHEST REASON FOR EXAM: Female, 61 years old. SHORT OF BREATH TECHNIQUE: PA and lateral views of the chest. COMPARISON: 03/17/2019 FINDINGS: Lungs are hyperexpanded. Stable fibrotic scarring in the left lower lobe. No airspace consolidation. There is no demonstrated pleural abnormality. Normal size heart. Normal mediastinum and mikala. Normal visualized pulmonary arteries. Normal visualized aortic arch and descending thoracic aorta. Normal visualized thoracic spine. Normal visualized ribs, clavicles, and shoulders. There is no demonstrated abnormality of the visualized soft tissue structures of the upper abdomen. RAD/Chest PA and Lateral IMPRESSION: No airspace consolidation or pleural effusion. Stable scarring left lower lobe. Chronic obstructive airway disease. Electronically Signed: Dejon Perez MD ([place]) at 13:06 EST , Service support ,
== END ==
PROVIDERS: PCP Family Medicine Geriatric Medicine; Visit Provider Family Medicine Geriatric Medicine
DX: R06.89 Other abnormalities of breathing (principal)
CPT/HCPCS: 71046

== ENCOUNTER 2021-09-21 09:44 | Outpatient (CLI) | payer OTHER, SELFPAY ==
[2021-09-21 09:56] LABS: Absolute Lymphocyte Count 0.69 X10^3/uL (0.83-4.51); Absolute Neutrophil Count 1.9 X10^3/uL (2.0-7.7); Basophil# 0.01 X10^3/uL; Basophil% 0.3 % (0-1); Hematocrit 42.8 % (37-47); Lymphocyte # 0.69 X10^3/ul (0.83-4.51); Lymphocyte % 23.2 % (19-41); Mean Corp Hgb Conc 32.7 g/dL (32-36); Mean Corpuscular Hgb 30.2 pg (27.0-32.0); Mean Corpuscular Volume 92.4 fL (81-99); Monocyte% 10.1 % (0-10); NRBC Flagged by Analyzer 0 % (0-5); POSITIVE COUNT YES; Platelet Count 98 K/mm3 (150-450); RBC Distribution Width CV 13.2 % (11.6-14.6); RBC Distribution Width SD 44.5 fl (35.1-43.9); Red Blood Count 4.63 M/mm3 (4.2-5.4)
[2021-09-21 10:29] LABS: Vitamin D,25 Hydroxy 44.1 ng/mL
[2021-09-21 10:35] LABS: ALB/GLOB Ratio 0.9 RATIO (0.9-2.4); AST(SGOT) 19 U/L (15-37); Alanine Aminotransfer ALT/SGPT 23 U/L (13-56); Albumin, Serum 2.7 g/dL (3.2-5.0); Alkaline Phosphatase 100 U/L (45-117); Anion Gap 7 (5-15); BUN 16 mg/dL (7-18); BUN/Creat Ratio 28.5 RATIO (10-20); Calcium,Total 8.6 mg/dL (8.5-10.1); Chloride 108 mmol/L (98-107); Creatinine, Serum 0.56 mg/dL (0.55-1.02); EST Glomerular Filtration Rate 116 mL/min (>60); Est Glom Filt Rate - Afr Amer 140 mL/min (>60); Globulin 3.1 g/dL (2.2-4.2); Glucose 119 mg/dL (74-106); Potassium 3.5 mmol/L (3.5-5.1); Protein, Total 5.8 g/dL (6.4-8.2); Sodium Level 143 mmol/L (136-145); Thyroid Stim Hormone (TSH) 2.18 uIU/mL (0.358-3.74)
== END 2021-09-21 23:59 | disposition short-term general hospital (02) ==
LOC: POLAB3 09:45
PROVIDERS: PCP Family Medicine Geriatric Medicine; Visit Provider Family Medicine Geriatric Medicine
DX: E55.9 Vitamin D deficiency, unspecified (principal); R53.83 Other fatigue
CPT/HCPCS: 36415; 80053; 82306; 84443; 85025

== ENCOUNTER 2021-10-06 17:35 | Inpatient (IN) | payer OTHER, SELFPAY ==
[2021-10-06] VITALS (10 sets, daily range): BP systolic 108–167; BP diastolic 57–78; PULSE 66–82; RESP 16–21; TEMP 36.2–36.6; O2SAT 96; BMI 27.0; BMI 27.1
--- NOTE | 2021-10-06 18:14 | EKG12_ITS ---
Test Reason : CP Blood Pressure : / mmHG Vent. Rate : 071 BPM Atrial Rate : 071 BPM P-R Int : 170 ms QRS Dur : 084 ms QT Int : 380 ms P-R-T Axes : 073 059 075 degrees QTc Int : 412 ms Normal sinus rhythm Normal ECG Confirmed by GEOVANNA WEAVER, DESTINY ([id number]), website/blog editor EWELINA FRAGA ([id number]) on 10/07/2021 9:37:11 AM Referred By: AGUILA/CHANEL Confirmed By:DESTINY AUSTIN MD
[2021-10-06] MEDS: Aspirin 81 MG TAB.CHEW 324 MG PO (18:21)
--- NOTE | 2021-10-06 18:22 | EDS_ITS ---
HPI History of Present Illness Chief Complaint: Chest Pain Informant: patient Onset/Context/Timing Onset: Today Activity at onset: sudden Timing: Continuous Location: Substernal, Right Parasternal, Left Parasternal, Right Chest and Left Chest Current Severity: Moderate Maximum Severity: Moderate Worsened By: Nothing Relieved By: Nothing Associated Symptoms: Positive for Nausea; Negative for Vomiting, Diaphoresis, Dyspnea, Cough, Fever, Lightheadedness, Acid Reflux and Palpitations Narrative Narrative: 61-year-old female history of osteoporosis, PVCs and low platelets. 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 She states she was at home today was given to make dinner she start developing chest tightness that started substernal and across her chest down both arms and into her jaw. She had nausea but did not vomit. She denies any diaphoresis or shortness of breath. Initially the pain was an 8 out of 10 currently it is a 4-5 out of 10. She has had no recent exertional chest pain. She has never had a stress test or heart catheterization. She is a prior smoker but quit around 12 years ago. She has had a prior DVT but that was many years ago when she was after her C- section. She denies any pleuritic chest pain. No shortness of breath. No hemoptysis. No recent travel, surgery or immobilization. No leg pain or swelling. Prior Similar Symptoms: No Recent Illness/Hospitalization: No CVD Risk Factors: Positive for Smoking; Negative for Hypertension, Diabetes, Hypercholesterolemia and Family History 1' </=55 PE Risk Factors: Positive for Prior DVT or PE; Negative for Recent Travel/Surgery, Recent Immobilization, Cancer and OCP + Smoking + >/=35 TAD Risk Factors: Negative for Marfan's Syndrome, Hypertension and Family History [facility] Medical History Cirrhosis of liver Portal hypertension Temporary low platelet count Home Medications carvedilol 3.125 mg PO BID 09/08/21 [History Last Taken Unknown] furosemide 20 mg PO DAILY PRN 09/08/21 [History Last Taken Unknown] hydroxychloroquine 150 mg PO DAILY 09/08/21 [History Last Taken Unknown] mometasone-formoterol [Dulera] 2 puff INHALATION BID 09/08/21 [History Last Taken Unknown] montelukast [Singulair] 10 mg PO DAILY 09/08/21 [History Last Taken Unknown] obeticholic acid [Ocaliva] 5 mg PO DAILY 09/08/21 [History Last Taken Unknown] spironolactone 100 mg PO DAILY 09/08/21 [History Last Taken Unknown] umeclidinium [Incruse Ellipta] 1 inh INHALATION DAILY 09/08/21 [History Last Taken Unknown] ursodiol 500 mg PO TID 09/08/21 [History Last Taken Unknown] Allergy/AdvReac Type Severity Reaction Status Date / Time No Known Allergies Allergy Verified 09/07/21 14:51 Social History Smoking Status: Former smoker ROS ROS ED ROS Narrative Denies recent illness. Chest pain today. Review of Systems ROS Unobtainable: Denies due to encephalopathy Constitutional Constitutional ED: Denies chills, fever(s) or subjective Eyes Eyes: Denies none or change in vision ENT ENT ED: Denies ear pain, rhinorrhea or sore throat Cardiovascular Cardiovascular: Reports as per HPI and chest pain; Denies palpitations or racing heartbeat Respiratory/Chest Respiratory/Chest: Denies cough, dyspnea or sputum Gastrointestinal Gastrointestinal: Reports nausea; Denies abdominal pain, diarrhea or vomiting Genitourinary Genitourinary ED: Denies dysuria Musculoskeletal Musculoskeletal: Denies myalgias Integumentary Denies rash Neurologic Neurologic: Denies headache(s) Psychiatric Psychiatric: Denies depression Hematologic/Lymphatic Hematologic/Lymphatic: Denies easy bruising Allergic/Immunologic Allergic/Immunologic ED: Denies urticaria EXAM Physical Exam Narrative Exam Narrative: 61-year-old female in no acute distress. Vital signs stable afebrile. H EENT exam unremarkable. Neck nontender. No JVD. Lungs clear to auscultation bilaterally. Heart regular rate and rhythm rate about 75 no murmur. Chest wall nontender. Radial pulses equal symmetrical. Abdomen soft nontender normal bowel sounds no peritoneal signs. Moving all 4 extremities. Calves are nontender without edema or cords. Neurologically awake and alert with no focal motor deficits. Const Vital Signs: 10/06/21 17:36 10/06/21 17:43 10/06/21 18:21 Temperature 97.2 F L 97.2 F L Temperature Source Temporal Temporal Pulse Rate 74 77 Respiratory Rate 16 18 Blood Pressure 167/78 H Blood Pressure Mean 107 Oxygen Delivery Method Room Air 10/06/21 18:44 10/06/21 18:45 10/06/21 18:54 Temperature Temperature Source Pulse Rate 73 68 82 Respiratory Rate 21 H Blood Pressure 142/71 H 142/71 H 145/72 H Blood Pressure Mean 94 Oxygen Delivery Method 10/06/21 19:13 10/06/21 20:09 Temperature Temperature Source Pulse Rate 73 71 Respiratory Rate 20 H 19 H Blood Pressure 125/60 H 108/57 L Blood Pressure Mean 81 74 Oxygen Delivery Method Positive well nourished and well developed; Negative for cachectic, contractures or unkempt General Appearance ED: well developed and NAD; Negative for unkempt, cachectic, contractures or pallor Nutritional Appearance: Negative for cachectic HEENT Reports moist mucous membranes normocephalic and atraumatic; Negative for trauma or tenderness Eyes PERRL and EOMs intact bilaterally Neck no lymphadenopathy, supple and no JVD General: Negative for tenderness Chest Wall inspection of chest normal and palpation of chest normal Resp normal respiratory effort and clear to auscultation bilaterally Effort and Inspection: respiratory distress Auscultation: Negative for rales, rhonchi or wheezes Cardio regular rate, regular rhythm, S1 normal heart sound, S2 normal heart sound and no murmurs Rate: Negative for tachycardic GI normal to inspection, nondistended, normoactive bowel sounds, soft to palpation, non-tender, non-distended and no masses Back/Spine no CVA tenderness; Negative for no thoracic nor lumbar tenderness General Back: Negative for CVA tenderness or other Cervical Spine: Negative for cervical spine tenderness Extremity normal to inspection General Extremety ED: Negative for edema, pulses abnormal or tenderness General Extremity: Negative for edema or pulses abnormal Neuro oriented x3 Sensorium / Orientation: awake, alert, oriented to person, oriented to place and oriented to time Motor Exam: strength 5/5 throughout Psych mental status grossly normal Appearance: Negative for unkempt Attitude: No agitated Mood & Affect: Negative for depressed or tearful Skin no rashes or lesions noted and no wounds General Skin Exam: Negative for jaundice or pallor Rashes: No rashes noted Heart Score History: Moderately Suspicious ECG: Nonspecific Repolarization Age: >45 - <65 years Risk Factors: 1 or 2 Risk Factors Troponin: >1 - <3 Normal Limit Score: 5 MDM MDM MDM Narrative Medical decision making narrative: 61-year-old with chest pain that went into her arms and jaw. Is not reproducible. She does have risk factors including her age and smoking history in the past. Undergo cardiac work-up. She will be given aspirin and sublingual nitro to see if it does anything for her pain. Patient did get relief of her chest pain with the nitroglycerin. In light of th at, her chest pain history and her age I do feel would be appropriate to admit her for further cardiac evaluation and most likely provocative stress testing. I will speak to the hospitalist. I have gone all over the test results with the patient. Currently she is stable and pain-free at 8 PM. Lab Data Attestation: I reviewed the patient's lab results. Lab results narrative: CBC shows white count three. Hemoglobin thirteen. Hematocrit forty-one. Platelets are low at 45,000. She has a history of thrombocytopenia. Electrolytes show a gap of 5 normal BUN and creatinine. Glucose of 124. Troponin elevated at 96. Labs: Laboratory Results - last 24 hr 10/06/21 10/06/21 18:28 18:28 WBC 3.4 L RBC 4.46 Hgb 13.6 Hct 41.9 MCV 93.9 MCH 30.5 MCHC 32.5 RDW Std Deviation 51.5 H RDW Coeff of Kiya 15.2 H Plt Count 45 L* MPV 11.2 Immature Gran % (Auto) 0.300 Neut % (Auto) 61.7 Lymph % (Auto) 25.5 [place] % (Auto) 8.9 Eos % (Auto) 3.3 Baso % (Auto) 0.3 Absolute Neuts (auto) 2.1 Absolute Lymphs (auto) 0.86 Nucleated RBC % 0 Differential Comment SCANNED Diff Path Review May foll Sodium 140 Potassium 3.8 Chloride 110 H Carbon Dioxide 25.0 Anion Gap 5 BUN 14 Creatinine 0.52 L Estim Creat Clear Calc 100.94 Est GFR (MDRD) Af Amer 155 Est GFR (MDRD) Non-Af 128 BUN/Creatinine Ratio 27.2 H Glucose 124 H Calcium 8.3 L Troponin I High Sens 96 H Radiography Chest X-Ray - ED: 1 View, Read by ED Physician, Heart, Lungs, Mediastinum, Bony Structures, No Acute Disease and Chronic Changes Diagnostic Testing: Clinical Impression(s) from Imaging Studies Chest X-Ray 10/06/21 18:54 IMPRESSION: Degenerative changes, as described above. No demonstrated acute cardiopulmonary process. Electronically Signed: Maurisio ReedonDO at 19:52 EST Tel [phone], Service support , Chest x-ray, portable, single view inter by myself shows no acute abnormality. Rhythm Strip Rhythm Strip: Sinus Rhythm Rate: 71 Ectopy: None EKG Initial EKG: Attestation: I personally reviewed and interpreted this EKG as follows: Interpretation: Sinus Rhythm and No Acute Injury Pattern Comments: Normal sinus rhythm rate of 71 no acute signs of [place] or ischemia. Prior EKG tracings: not available for review Discharge Plan Dx/Rx/DC Orders Clinical Impression: Chest pain, Primary biliary cholangitis Disposition Disposition: Acute Care [facility]
[2021-10-06] MEDS: Nitroglycerin SL (ED/IMG/CATH) 0.4 MG TABLET SL ×3 (18:45→19:13)
--- NOTE | 2021-10-06 18:54 | RAD_ITS ---
STUDY: X-RAY CHEST REASON FOR EXAM: Female, 61 years old. Chest pain. TECHNIQUE: Single AP portable view of the chest. COMPARISON: 09/16/2021. FINDINGS: The lungs are clear and expanded. Linear densities at the left lung base are no longer visualized. There is no demonstrated pleural abnormality. Normal size heart. Normal mediastinum and mikala. Normal visualized pulmonary arteries. Normal visualized aortic arch and descending thoracic aorta. There are diffuse degenerative changes of the visualized thoracic spine. There is degenerative osteoarthritis of the bilateral shoulders. There is no demonstrated abnormality of the visualized soft tissue structures of the upper abdomen. RAD/Chest 1 View (Portable) IMPRESSION: Degenerative changes, as described above. No demonstrated acute cardiopulmonary process. Electronically Signed: Maurisio Cao DO at 19:52 EST Tel [phone], Service support ,
[2021-10-06 19:05] LABS: Absolute Lymphocyte Count 0.86 X10^3/uL (0.83-4.51); Absolute Neutrophil Count 2.1 X10^3/uL (2.0-7.7); Basophil# 0.01 X10^3/uL; Basophil% 0.3 % (0-1); Eosinophil# 0.11 X10^3/uL; Eosinophils% 3.3 % (0-5); Hematocrit 41.9 % (37-47); Hemoglobin 13.6 g/dL (12.0-15.0); Lymphocyte # 0.86 X10^3/ul (0.83-4.51); Lymphocyte % 25.5 % (19-41); Mean Corp Hgb Conc 32.5 g/dL (32-36); Mean Corpuscular Hgb 30.5 pg (27.0-32.0); Mean Corpuscular Volume 93.9 fL (81-99); Mean Platelet Vol. 11.2 fl (6.2-12.0); Monocyte% 8.9 % (0-10); NRBC Flagged by Analyzer 0 % (0-5); Neutrophil # 2.08 X10^3/uL (2.7-7.7); Neutrophil % 61.7 % (47-70); POSITIVE COUNT YES; RBC Distribution Width CV 15.2 % (11.6-14.6); RBC Distribution Width SD 51.5 fl (35.1-43.9); Red Blood Count 4.46 M/mm3 (4.2-5.4); White Blood Count 3.4 K/mm3 (4.4-11.0)
[2021-10-06 19:12] LABS: Differential Indicated SCAN CRITERIA MET
[2021-10-06 19:13] LABS: Platelet Count 45 K/mm3 (150-450)
[2021-10-06 19:26] LABS: Anion Gap 5 (5-15); BUN 14 mg/dL (7-18); BUN/Creat Ratio 27.2 RATIO (10-20); Calcium,Total 8.3 mg/dL (8.5-10.1); Chloride 110 mmol/L (98-107); Creatinine, Serum 0.52 mg/dL (0.55-1.02); EST Glomerular Filtration Rate 128 mL/min (>60); Est Glom Filt Rate - Afr Amer 155 mL/min (>60); Estimated Creatinine Clearance 100.94 ml/min; Glucose 124 mg/dL (74-106); Potassium 3.8 mmol/L (3.5-5.1); Sodium Level 140 mmol/L (136-145); Troponin-I HS 96 pg/mL (3.0-54.0)
[2021-10-06 19:32] LABS: Differential Comment SCANNED
--- NOTE | 2021-10-06 20:12 | HP.PCM.HOS_ITS ---
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 This pain span across her entire chest; and it radiated to her bilateral arms and bilateral jaws and to her upper back. She described the pain as aching. There was no ameliorating or aggravating factors to the pain. However her pain improved with each other 3 tablets of nitroglycerin that was given at the ED. Her pain completely disapp eared with the third dose of the nitroglycerin. She had nausea with the pain. She denies any shortness of breath. She reported she never sweats. She has multiple aunts from her paternal side that had heart attacks in their 40s to 50s. [facility], [facility] Medical History (Updated 10/06/21 @ 21:[address] Nickolas Arboleda MD) Cirrhosis of liver DVT (deep venous thrombosis) Portal hypertension Temporary low platelet count Home Medications carvedilol 3.125 mg PO BID 09/08/21 [History Last Taken 10/06/21 10:00] furosemide 20 mg PO DAILY PRN 09/08/21 [History Last Taken Unknown] hydroxychloroquine 150 mg PO DAILY 09/08/21 [History Last Taken 10/05/21] mometasone-formoterol [Dulera] 2 puff INHALATION BID 09/08/21 [History Last Taken 10/05/21] montelukast [Singulair] 10 mg PO DAILY 09/08/21 [History Last Taken 10/05/21] obeticholic acid [Ocaliva] 5 mg PO DAILY 09/08/21 [History Last Taken 10/05/21] spironolactone 100 mg PO DAILY 09/08/21 [History Last Taken 10/05/21] umeclidinium [Incruse Ellipta] 1 inh INHALATION DAILY 09/08/21 [History Last Taken 10/05/21] ursodiol 500 mg PO TID 09/08/21 [History Last Taken 10/06/21 12:00] Allergy/AdvReac Type Severity Reaction Status Date / Time No Known Allergies Allergy Verified 09/07/21 14:51 Family History Other Cancer Depression Hypertension Surgical History History of ankle surgery History of delivery Social History Smoking Status: Former smoker ROS ROS Narrative Constitutional: Denies fever, chills, fatigue, anorexia and change in weight Eyes: Denies blurry vision, change in eye color, change in vision, discharge from eye(s), double vision, erythema, eye pain, loss of vision or other HEENT: Denies abnormal hearing, dysphagia, ear pain, epistaxis, headache(s), hearing loss, nasal congestion, nasal discharge, post nasal drip, sinus pressure, sore throat or other Cardiovascular: Reports chest pain. Denies palpitations. Denies dyspnea on exertion, orthopnea and paroxysmal nocturnal dyspnea Respiratory/Chest: Denies cough, excessive phlegm production, shortness of breath with exertion and wheezing Gastrointestinal: Reports nausea. Denies abdominal pain, coffee ground emesis, constipation, diarrhea, dyspepsia, hematemesis, hematochezia, loose stools, melena, vomiting or other Genitourinary: Denies burning urination, difficulty urinating, dysuria, hematuria, nocturia, urinary frequency, urinary hesitancy, urinary incontinence, urinary urgency or other Musculoskeletal: Reports bilateral arm pain and upper back pain. Denies arthralgias, joint pain, joint stiffness, joint swelling, myalgias, neck pain or other Neurologic: Denies abnormal gait, abnormal speech, confusion, disequilibrium, dizziness, focal weakness, headache(s), numbness, paresthesias, seizure-like activity, seizures, syncope, tingling, tremor(s) or other Psychiatric: Denies anxiety, depression, homicidal ideation, suicidal ideation or other Endocrinology: Denies change in body appearance, cold intolerance, excessive sweating, heat intolerance, polydipsia, polyuria or other Hematologic/Lymphatic: Denies anemia, easy bleeding, easy bruising, lymphadenopathy or other Integumentary: Denies rashes Allergic/Immunologic: Denies rhinitis, hives, eczema, asthma or other Vital Signs Vital Signs Vital Signs: 10/06/21 17:36 10/06/21 17:43 10/06/21 18:21 Temperature 97.2 F L 97.2 F L Temperature Source Temporal Temporal Pulse Rate 74 77 Respiratory Rate 16 18 Blood Pressure 167/78 H Blood Pressure Mean 107 Oxygen Delivery Method Room Air 10/06/21 18:44 10/06/21 18:45 10/06/21 18:54 Temperature Temperature Source Pulse Rate 73 68 82 Respiratory Rate 21 H Blood Pressure 142/71 H 142/71 H 145/72 H Blood Pressure Mean 94 Oxygen Delivery Method 10/06/21 19:13 10/06/21 20:09 Temperature Temperature Source Pulse Rate 73 71 Respiratory Rate 20 H 19 H Blood Pressure 125/60 H 108/57 L Blood Pressure Mean 81 74 Oxygen Delivery Method Weight Weight: 73.7 kg Body Mass Index (BMI) 27.0 Physical Exam Narrative Physical exam: General: Well-nourished, well-developed. Head: Normocephalic, atraumatic, no tenderness Eyes: PERRLA, EOMI ENT, no trauma, moist mucous membranes, no rhinorrhea Neck: Nontender, full range of motion, no spinal tenderness, deformities, step- off CVS: Regular rate and rhythm. S1-S2 present. No murmur, gallop or rub. Respiratory : clear to auscultation bilaterally, chest wall nontender, no wheezing Abdomen: Soft, nontender, nondistended, normal bowel sounds, no masses : Deferred Back: Nontender, no CVA tenderness, no midline spinal tenderness, deformities, step-offs Extremities: Nontender full range of motion, no trauma Skin: Normal color, no trauma, abrasions Neuro: Alert, oriented, cranial nerves II through XII grossly intact. Psychiatry: Normal mood. Normal affect. Not depressed. Not anxious. Results Lab / Micro Data Result Diagrams: 10/06/21 18:28 10/06/21 18:28 Labs: Laboratory Results - last 24 hr 10/06/21 18:28: WBC 3.4 L, RBC 4.46, Hgb 13.6, Hct 41.9, MCV 93.9, MCH 30.5, MCHC 32.5, RDW Std Deviation 51.5 H, RDW Coeff of Kiya 15.2 H, Plt Count 45 L*, MPV 11.2, Immature Gran % (Auto) 0.300, Neut % (Auto) 61.7, Lymph % (Auto) 25.5, Talbot % (Auto) 8.9, Eos % (Auto) 3.3, Baso % (Auto) 0.3, Absolute Neuts (auto) 2.1, Absolute Lymphs (auto) 0.86, Nucleated RBC % 0, Differential Comment SCANNED, Diff Path Review May foll 10/06/21 18:28: Sodium 140, Potassium 3.8, Chloride 110 H, Carbon Dioxide 25.0, Anion Gap 5, BUN 14, Creatinine 0.52 L, Estim Creat Clear Calc 100.94, Est GFR (MDRD) Af Amer 155, Est GFR (MDRD) Non-Af 128, BUN/Creatinine Ratio 27.2 H, Glucose 124 H, Calcium 8.3 L, Troponin I High Sens 96 H Rhythm Strip Rhythm Strip: Sinus Rhythm Rate: 71 Ectopy: None Radiology Impression Chest X-Ray 10/06/21 18:54 IMPRESSION: Degenerative changes, as described above. No demonstrated acute cardiopulmonary process. Electronically Signed: Maurisio Cao DO at 19:52 EST Tel [phone], Service support , Assessment & Plan Assessment/Plan (1) Chest pain: QUALIFIERS: Chest pain type: unspecified Qualified Code(s): R07.9 - Chest pain, unspecified (2) NSTEMI, initial episode of care: PLAN: NSTEMI Place on a monitored bed at progressive care unit Actual CXR image was independently visualized. No acute cardiopulmonary process was noted. Actual EKG tracing was independently visualized. EKG tracing showed sinus rhythm with no ST or T wave abnormalities Received aspirin 324 mg at the emergency department. Of note patient platelet is low at 45. Will ordered daily baby aspirin for now and trend CBC. SL NTG 0.4 mg prn as needed for chest pain ordered Morphine as needed for pain ordered. With a history of primary biliary cholangitis we will hold off high intensity statin at this time. Will check a CMP to evaluate liver function and then further determination can be made. Initial has any troponin was 96. Trend Stat EKG as needed for chest pain Correct continue Chemical Stress test in the AM if the cardiac enzymes are stable. If her cardiac enzymes astronomically elevate will cancel stress test and will consult cardiology. Hypertension Blood pressure is stable Coreg and spironolactone continued. Trend blood pressure and adjust blood pressure medications. Pancytopenia White count of 3.4, chronic. Platelets of 45 acute on chronic. Likely secondary to history of primary biliary cholangitis; a history of IgG deficiencies. Trend CBC. DVT prophylaxis With low platelets we will avoid chemical thromboprophylaxis at this time. SCDs ordered. Charges/Coding Visit Charges OBSV E&M: 13159 Initial observation care L3
--- NOTE | 2021-10-06 20:48 | EKG12_ITS ---
Test Reason : CP ADMIT Blood Pressure : / mmHG Vent. Rate : 063 BPM Atrial Rate : 063 BPM P-R Int : 144 ms QRS Dur : 094 ms QT Int : 404 ms P-R-T Axes : 042 052 064 degrees QTc Int : 413 ms Normal sinus rhythm Normal ECG When compared with ECG of 06-OCT-2021 17:43, MANUAL COMPARISON REQUIRED, DATA IS UNCONFIRMED Confirmed by AMPARO WEAVER, CELESTINO ([id number]), editor managing newspaper EWELINA FRAGA ([id number]) on 10/07/2021 1:57:20 PM Referred By: DR GARIBAY Confirmed By:CELESTINO CHRISTENSEN MD
--- NOTE | 2021-10-06 21:02 | PCS.PANDOC ---
PANDEMIC DOCUMENTATION INITIATED: Date: 05/02/2021 Time: 190
[2021-10-06 21:32] LABS: Troponin-I HS 1126 pg/mL (3.0-54.0)
[2021-10-06] MEDS: Carvedilol 3.125 MG TABLET PO (22:39)
[2021-10-06] MEDS: Spironolactone 50 MG Tablet 100 MG PO (22:39)
[2021-10-06] MEDS: Ursodiol 250 MG Tablet 500 MG PO (22:39)
[2021-10-06] MEDS: Hydroxychloroquine 200 MG Tablet 150 MG PO (22:39)
[2021-10-07] VITALS (8 sets, daily range): BP systolic 110–126; BP diastolic 55–69; PULSE 64–82; RESP 16–18; TEMP 36.4–36.6; O2SAT 97–98
[2021-10-07 01:34] LABS: Absolute Lymphocyte Count 0.79 X10^3/uL (0.83-4.51); Absolute Neutrophil Count 1.7 X10^3/uL (2.0-7.7); Eosinophil# 0.07 X10^3/uL; Eosinophils% 2.5 % (0-5); Hematocrit 38.7 % (37-47); Hemoglobin 12.7 g/dL (12.0-15.0); Lymphocyte # 0.79 X10^3/ul (0.83-4.51); Lymphocyte % 27.8 % (19-41); Mean Corp Hgb Conc 32.8 g/dL (32-36); Mean Corpuscular Hgb 30.6 pg (27.0-32.0); Mean Corpuscular Volume 93.3 fL (81-99); Mean Platelet Vol. 11.4 fl (6.2-12.0); Monocyte# 0.27 X10^3/uL; Monocyte% 9.5 % (0-10); NRBC Flagged by Analyzer 0 % (0-5); Neutrophil # 1.71 X10^3/uL (2.7-7.7); Neutrophil % 60.2 % (47-70); POSITIVE COUNT YES; RBC Distribution Width CV 15.1 % (11.6-14.6); RBC Distribution Width SD 51.5 fl (35.1-43.9); Red Blood Count 4.15 M/mm3 (4.2-5.4); White Blood Count 2.8 K/mm3 (4.4-11.0)
[2021-10-07 01:36] LABS: Differential Indicated SCAN CRITERIA MET; Platelet Count 38 K/mm3 (150-450)
[2021-10-07 01:56] LABS: ALB/GLOB Ratio 0.9 RATIO (0.9-2.4); AST(SGOT) 27 U/L (15-37); Alanine Aminotransfer ALT/SGPT 27 U/L (13-56); Albumin, Serum 2.5 g/dL (3.2-5.0); Alkaline Phosphatase 78 U/L (45-117); Anion Gap 4 (5-15); BUN 12 mg/dL (7-18); BUN/Creat Ratio 32.6 RATIO (10-20); Chloride 116 mmol/L (98-107); Cholesterol 137 mg/dL (200); Creatinine, Serum 0.37 mg/dL (0.55-1.02); EST Glomerular Filtration Rate 189 mL/min (>60); Est Glom Filt Rate - Afr Amer 229 mL/min (>60); Estimated Creatinine Clearance 141.86 ml/min; Globulin 2.8 g/dL (2.2-4.2); Glucose 102 mg/dL (74-106); High Density Lipoprotein 54 mg/dL; Potassium 3.9 mmol/L (3.5-5.1); Protein, Total 5.3 g/dL (6.4-8.2); Sodium Level 144 mmol/L (136-145); Triglycerides 35 mg/dL; Very Low Density Lipoprotein 7 mg/dL (5-40)
[2021-10-07 02:10] LABS: Troponin-I HS 2585 pg/mL (3.0-54.0)
[2021-10-07 02:49] LABS: Differential Comment SCANNED; Platelet Estimate MKD DEC (ADEQ)
--- NOTE | 2021-10-07 05:55 | ECHOD_ITS ---
Reason For Study: Chest Pain Procedure This was a 2D Doppler, Color Flow transthoracic echocardiogram. Exam performed portable in patient room. Left Ventricle Normal left ventricle. The estimated ejection fraction is 55-60 %. Right Ventricle Normal right ventricle. Normal systolic function. Atria Normal left atrium. Normal right atrium. Mitral Valve The mitral valve is structurally normal. No prolapse or stenosis seen. Tricuspid Valve Normal tricuspid valve. Trivial tricuspid valve insufficiency. Aortic Valve Normal aortic valve. Pulmonic Valve The pulmonic valve is not well visualized. Great Vessels Normal aortic root. Pericardium/Pleural No pericardial effusion. Medication Performed a rapid injection of agitated mix of 9 cc saline and 1cc air to assess for atrial septal defect. MMode/2D Measurements & Calculations LVIDd: 4.7 cm IVSd: 0.91 cm LA dimension: 3.4 cm LVIDs: 2.6 cm LVPWd: 0.97 cm RVDd: 3.5 cm FS: 44.7 % LAV(MOD-bp): 59.1 ml LA A4 area: 17.6 cm2 RA A4 area: 19.7 cm2 LAV(MOD-bp) Indexed: 32.7 ml/m2 LAV(MOD-sp2): 69.6 ml LAV(MOD-sp4): 47.9 ml Time Measurements MV dec time: 0.27 sec Doppler Measurements & Calculations MV E max ignacio: 90.1 cm/sec Lat Peak E' Ignacio: 11.0 cm/sec Med Peak E' Ignacio: 7.6 cm/sec MV A max ignacio: 101.9 cm/sec E/E' lat: 8.2 E/E' med: 11.9 MV E/A: 0.88 MV V2 max: 100.3 cm/sec MV P1/2t max ignacio: 93.8 cm/sec Ao V2 max: 152.2 cm/sec MV max P.0 mmHg MV P1/2t: 114.5 msec Ao max P.3 mmHg MV V2 mean: 66.8 cm/sec MV dec slope: 240.1 cm/sec2 MV mean P.0 mmHg MV V2 VTI: 29.7 cm MVA(P1/2t): 1.9 cm2 LV V1 max: 156.4 cm/sec PA V2 max: 122.3 cm/sec TR max ignacio: 239.3 cm/sec LV V1 max P.8 mmHg TR max P.9 mmHg ECHO/Echo Complete Interpretation Summary The estimated ejection fraction is 55-60 %. Grade #1 diastolic Dysfunction Ordering Physician: Nickolas Arboleda Referring Physician: Lionel Shukla Chi Performed By: Devin Torres RCS
--- NOTE | 2021-10-07 05:55 | EKG12_ITS ---
Test Reason : AM EKG Blood Pressure : / mmHG Vent. Rate : 060 BPM Atrial Rate : 060 BPM P-R Int : 170 ms QRS Dur : 092 ms QT Int : 414 ms P-R-T Axes : 048 051 062 degrees QTc Int : 414 ms Normal sinus rhythm with sinus arrhythmia Normal ECG When compared with ECG of 06-OCT-2021 21:06, MANUAL COMPARISON REQUIRED, DATA IS UNCONFIRMED Confirmed by AMPARO WEAVER, CELESTINO ([id number]), metropolitan editor EWELINA FRAGA ([id number]) on 10/07/2021 1:57:08 PM Referred By: UMER Confirmed By:CELESTINO CHRISTENSEN MD
[2021-10-07] MEDS: Ursodiol 250 MG Tablet 500 MG PO ×2 (06:10→13:47)
[2021-10-07] MEDS: Carvedilol 3.125 MG TABLET PO (07:46)
[2021-10-07] MEDS: Budesonide Respules 0.5 MG/2 ML AMPUL.NEB. INHALATION ×2 (07:55)
[2021-10-07] MEDS: Ipratropium/Albuterol Sulfate 3 ML AMPUL.NEB INHALATION ×2 (07:55)
--- NOTE | 2021-10-07 09:32 | CASEMGMT ---
According to the MMO/MHS website, the following are in-network tertiary facilities: [facility], [facility], [facility], [facility], [facility], [facility], [facility], [facility], [facility], and . Jaswinder LUKE CM
--- NOTE | 2021-10-07 09:53 | CON.PCM.CA_ITS ---
Documented by User: Мария HAJI, RAISSA 10/07/21 10:18 Assessment & Plan Assessment/Plan (1) NSTEMI, initial episode of care: (2) Chest pain: QUALIFIERS: Chest pain type: unspecified Qualified Code(s): R07.9 - Chest pain, unspecified (3) Primary biliary cholangitis: PLAN: * Enzymes trending up, she is currently not symptomatic * echo is pending * need to take her thrombocytopenia and cirrhosis into consideration with respect to antiplatelet use and statin use. Based on echo will decide if we should pursue a cardiac CTA with calcium score prior to pursuing a heart cath. Hospitalist does have a call to hematology for their input on antiplatelet use. * Pt is current on Coreg. Based on echo will further optimize medications. HPI Consult Data Date of Consult: 10/07/21 HPI Narrative HPI Narrative: KANU TIJERINA, is a 61 F who presented to the ER on 10/06/2021 with CP. She described it as chest tightness that started substernal and across her chest down both arms and into her jaw. She had nausea but did not vomit. She denies any diaphoresis or shortness of breath. Initially the pain was an 8 out of 10 currently it is a 4-5 out of 10. This was decreased with the NTG. She has had no recent exertional chest pain. She was out shoveling snow this week with no issues. She does not that she does occasionally have similar discomfort but it is not as bad. It is approximately once a month. It is sometimes relieved by belching. She has never had a stress test or heart catheterization. Initial high sensitivity troponin was 96, it has trended 1126,2585. She does have a hx of history of osteoporosis, PVCs and low platelets. 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 She did have COVID in August. [facility] Medical History (Updated 10/07/21 @ 15:[address] Kathrin Giron MD) Cirrhosis of liver DVT (deep venous thrombosis) Leukopenia Liver cirrhosis Portal hypertension Temporary low platelet count Thrombocytopenia Home Medications Dulera 2 puff INHALATION BID 09/08/21 [History Last Taken 10/05/21] Incruse Ellipta 1 inh INHALATION DAILY 09/08/21 [History Last Taken 10/05/21] Ocaliva 5 mg PO DAILY 09/08/21 [History Last Taken 10/05/21] carvedilol 3.125 mg PO BID 09/08/21 [History Last Taken 10/06/21 10:00] furosemide 20 mg PO DAILY PRN 09/08/21 [History Last Taken Unknown] hydroxychloroquine 150 mg PO DAILY 09/08/21 [History Last Taken 10/05/21] montelukast [Singulair] 10 mg PO DAILY 09/08/21 [History Last Taken 10/05/21] spironolactone 100 mg PO DAILY 09/08/21 [History Last Taken 10/05/21] ursodiol 500 mg PO TID 09/08/21 [History Last Taken 10/06/21 12:00] aspirin [Aspirin Low Dose] 81 mg PO DAILY 30 Days #30 tab 10/07/21 [Rx Last Taken Unknown] isosorbide mononitrate 30 mg PO DAILY 30 Days #30 tab 10/07/21 [Rx Last Taken Unknown] Allergy/AdvReac Type Severity Reaction Status Date / Time No Known Allergies Allergy Verified 09/07/21 14:51 Family History Other Cancer Depression Hypertension Surgical History History of ankle surgery History of delivery Social History Smoking Status: Former smoker ROS Constitutional Constitutional: Denies chills, fatigue or weakness Eyes Eyes: Reports none ENT HEENT: Reports systems reviewed and no addt'l complaints, except as documented Cardiovascular Cardiovascular: Reports as per HPI Respiratory/Chest Respiratory/Chest: Reports as per HPI Gastrointestinal Gastrointestinal: Reports as per HPI Neurologic Neurologic: Reports systems reviewed and no addt'l complaints, except as documented Hematologic/Lymphatic Hematologic/Lymphatic: Reports easy bleeding and easy bruising Physical Exam Const alert, oriented x3, no apparent distress, average body habitus and healthy appearing HEENT normocephalic, head/scalp atraumatic, hearing grossly normal bilaterally, exter nal ears normal and nasal mucous membranes and turbinates normal Eyes PERRL, EOMs intact bilaterally, conjunctivae normal and no scleral icterus Neck full ROM, supple and no JVD Resp normal respiratory effort, normal air movement, no retractions, no use of accessory muscles and clear to auscultation bilaterally Cardio regular rate, regular rhythm, S1 normal heart sound, S2 normal heart sound, no m urmurs, no rub, no gallops, no clicks, no JVD and peripheral pulses 2+ throughout GI normal to inspection, nondistended, normoactive bowel sounds, soft to palpation, non-tender and non-distended Extremity normal to inspection and normal capillary refill Skin no rashes or lesions noted Neuro oriented x3, CN's II-XII intact bilaterally, moves all extremities, no focal motor deficits, no sensory deficits noted and deep tendon reflexes 2+ bilaterally Risk Stratification Risk Stratification Applicable: Yes Age >/= 65: No >/= 3 CAD Risk Factors (HTN, HLD, DM, family hx of CAD, or current smoker): No Aspirin Use in the Past 7 Days: No Severe Angina (>/= episodes in 24 hours): Yes EKG ST Changes >/= 0.5mm: No Positive Cardiac Marker: Yes SANDRA Risk Stratification Score: 2 SANDRA % Risk: 8% Risk Charges/Coding Visit Charges Office Visits / Consults: 06191 IP Consult L4 Objective Data Vital Signs: Vital Signs Temp Pulse Resp BP Pulse Ox 97.7 F L 68 18 118/65 98 10/07/21 06:05 10/07/21 07:56 10/07/21 07:56 10/07/21 06:05 10/07/21 07:56 Oxygen Delivery Method Room Air Weight: 162 lb 14.746 oz Body Mass Index (BMI) 27.1 Intake & Output: Intake and Output for Last 24 Hours 10/05/21 10/06/21 10/07/21 23:59 23:59 23:59 Intake Total 240 / 240 0 / 0 Balance 240 / 240 0 / 0 Lab / Micro Data Result Diagrams: 10/07/21 01:26 10/07/21 01:26 Labs: Laboratory Results - last 24 hr 10/06/21 18:28: WBC 3.4 L, RBC 4.46, Hgb 13.6, Hct 41.9, MCV 93.9, MCH 30.5, MCHC 32.5, RDW Std Deviation 51.5 H, RDW Coeff of Kiya 15.2 H, Plt Count 45 L*, MPV 11.2, Immature Gran % (Auto) 0.300, Neut % (Auto) 61.7, Lymph % (Auto) 25.5, Sullivan % (Auto) 8.9, Eos % (Auto) 3.3, Baso % (Auto) 0.3, Absolute Neuts (auto) 2.1, Absolute Lymphs (auto) 0.86, Nucleated RBC % 0, Differential Comment SCANNED, Diff Path Review [facility] 10/06/21 18:28: Sodium 140, Potassium 3.8, Chloride 110 H, Carbon Dioxide 25.0, Anion Gap 5, BUN 14, Creatinine 0.52 L, Estim Creat Clear Calc 100.94, Est GFR (MDRD) Af Amer 155, Est GFR (MDRD) Non-Af 128, BUN/Creatinine Ratio 27.2 H, Glucose 124 H, Calcium 8.3 L, Troponin I High Sens 96 H 10/06/21 20:55: Troponin I High Sens 1126 H* 10/07/21 01:26: WBC 2.8 L, RBC 4.15 L, Hgb 12.7, Hct 38.7, MCV 93.3, MCH 30.6, MCHC 32.8, RDW Std Deviation 51.5 H, RDW Coeff of Kiya 15.1 H, Plt Count 38 L*, MPV 11.4, Immature Gran % (Auto) 0.000, Neut % (Auto) 60.2, Lymph % (Auto) 27.8, Sullivan % (Auto) 9.5, Eos % (Auto) 2.5, Baso % (Auto) 0.0, Absolute Neuts (auto) 1.7 L, Absolute Lymphs (auto) 0.79 L, Nucleated RBC % 0, Differential Comment SCANNED, Diff Path Review [facility], Platelet Estimate MKD 10/07/21 01:26: Sodium 144, Potassium 3.9, Chloride 116 H, Carbon Dioxide 24.0, Anion Gap 4 L, BUN 12, Creatinine 0.37 L, Estim Creat Clear Calc 141.86, Est GFR (MDRD) Af Amer 229, Est GFR (MDRD) Non-Af 189, BUN/Creatinine Ratio 32.6 H, Glu cose 102, Calcium 8.0 L, Total Bilirubin 0.60, AST 27, ALT 27, Alkaline Phosp hatase 78, Total Protein 5.3 L, Albumin 2.5 L, Globulin 2.8, Albumin/Globulin Ratio 0.9, Triglycerides 35, Cholesterol 137, LDL Cholesterol 76, VLDL Erica sterol 7, HDL Cholesterol 54 10/07/21 01:26: Troponin I High Sens 2585 H* Rhythm Strip Rhythm Strip: Sinus Rhythm Rate: 71 Ectopy: None Cardiology Labs/Tests 10/06/21 18:28: WBC 3.4 L, RBC 4.46, Hgb 13.6, Hct 41.9, MCV 93.9, MCH 30.5, MCHC 32.5, Plt Count 45 L*, MPV 11.2, Immature Gran % (Auto) 0.300, Neut % (Auto) 61.7, Lymph % (Auto) 25.5, Sullivan % (Auto) 8.9, Eos % (Auto) 3.3, Baso % (Auto) 0.3, Absolute Neuts (auto) 2.1, Nucleated RBC % 0 10/06/21 18:28: Sodium 140, Potassium 3.8, Chloride 110 H, Carbon Dioxide 25.0, Anion Gap 5, BUN 14, Creatinine 0.52 L, Est GFR (MDRD) Af Amer 155, Est GFR (MDRD) Non-Af 128, BUN/Creatinine Ratio 27.2 H, Glucose 124 H, Calcium 8.3 L 10/07/21 01:26: WBC 2.8 L, RBC 4.15 L, Hgb 12.7, Hct 38.7, MCV 93.3, MCH 30.6, MCHC 32.8, Plt Count 38 L*, MPV 11.4, Immature Gran % (Auto) 0.000, Neut % (Auto) 60.2, Lymph % (Auto) 27.8, Sullivan % (Auto) 9.5, Eos % (Auto) 2.5, Baso % (Auto) 0.0, Absolute Neuts (auto) 1.7 L, Nucleated RBC % 0 10/07/21 01:26: Sodium 144, Potassium 3.9, Chloride 116 H, Carbon Dioxide 24.0, Anion Gap 4 L, BUN 12, Creatinine 0.37 L, Est GFR (MDRD) Af Amer 229, Est GFR (MDRD) Non-Af 189, BUN/Creatinine Ratio 32.6 H, Glucose 102, Calcium 8.0 L, Total Bilirubin 0.60, Triglycerides 35, Cholesterol 137, LDL Cholesterol 76, VLDL Cholesterol 7, HDL Cholesterol 54 Rhythm: SR ECHO: pending Radiography Diagnostic Testing: Radiology Impression Chest X-Ray 10/06/21 18:54 IMPRESSION: Degenerative changes, as described above. No demonstrated acute cardiopulmonary process. Electronically Signed: Maurisio CaoDO at 19:52 EST Tel [phone], Service support , Documented by User: Dr. Saba Vallecillo MD 10/07/21 16:32 Assessment & Plan Assessment/Plan (1) NSTEMI, initial episode of care: (2) Primary biliary cholangitis: (3) Leukopenia: QUALIFIERS: Leukopenia type: unspecified Qualified Code(s): D72.819 - Decreased white blood cell count, unspecified (4) Thrombocytopenia: (5) Liver cirrhosis: QUALIFIERS: Hepatic cirrhosis type: unspecified hepatic cirrhosis Ascites presence: without ascites Qualified Code(s): K74.60 - Unspecified cirrhosis of liver PLAN: I saw this patient at bedside along with the midlevel and the nursing staff. Her symptoms of chest pain resolved The electrocardiogram showed underlying normal sinus rhythm with no significant ST to ST abnormalities. Noted elevated cardiac biomarkers/high sensitive troponins with a clinical diagn osis of non-ST elevation PR Cardiac care plan and recommendations; 1. The echocardiographic evaluation showed LV function is preserved and in comparison to prior echo in 2008 no significant change. Patient has been on beta-grabiel carvedilol we will continue low-dose aspirin and long-acting nitroglycerin Due to risk of worsening liver function, with history of liver cirrhosis statin has not started, risk discussed with the patient 2. High risk patient for invasive cardiac evaluation due to the thrombocytopenia and liver cirrhosis Patient is concerned about risk of bleeding. Also discussed the cardiac care plan with the family the daughter Who work as a human resources receptionist here at [facility] 3. From cardiac standpoint we will evaluate with a CTA/coronary angiography on Sunday. Also I discussed the case with artificial flowers supervisor Dr. Jordan Workman he will follow-up with the results of the CTA coronary angiography. HPI Consult Data Date of Consult: 10/07/21 [facility] Medical History (Updated 10/07/21 @ 15:[address] Kathrin Giron MD) Cirrhosis of liver DVT (deep venous thrombosis) Leukopenia Liver cirrhosis Portal hypertension Temporary low platelet count Thrombocytopenia Home Medications Dulera 2 puff INHALATION BID 09/08/21 [History Last Taken 10/05/21] Incruse Ellipta 1 inh INHALATION DAILY 09/08/21 [History Last Taken 10/05/21] Ocaliva 5 mg PO DAILY 09/08/21 [History Last Taken 10/05/21] carvedilol 3.125 mg PO BID 09/08/21 [History Last Taken 10/06/21 10:00] furosemide 20 mg PO DAILY PRN 09/08/21 [History Last Taken Unknown] hydroxychloroquine 150 mg PO DAILY 09/08/21 [History Last Taken 10/05/21] montelukast [Singulair] 10 mg PO DAILY 09/08/21 [History Last Taken 10/05/21] spironolactone 100 mg PO DAILY 09/08/21 [History Last Taken 10/05/21] ursodiol 500 mg PO TID 09/08/21 [History Last Taken 10/06/21 12:00] aspirin [Aspirin Low Dose] 81 mg PO DAILY 30 Days #30 tab 10/07/21 [Rx Last Taken Unknown] isosorbide mononitrate 30 mg PO DAILY 30 Days #30 tab 10/07/21 [Rx Last Taken Unknown] Allergy/AdvReac Type Severity Reaction Status Date / Time No Known Allergies Allergy Verified 09/07/21 14:51 Family History Other Cancer Depression Hypertension Surgical History History of ankle surgery History of delivery Social History Smoking Status: Former smoker Lab / Micro Data Result Diagrams: 10/07/21 01:26 10/07/21 01:26
--- NOTE | 2021-10-07 10:25 | CASEMGMT ---
RN CM Face to Face with patient for initial transition planning/care coordination assessment. RN CM introduced self and role at [facility]. Patient lying in bed, alert and oriented. Patient willing to participate in assessment and is able to answer all questions appropriately. Care providers, pharmacy, and demographics verified. Patient wishes to discharge home, denies need for home health at this time. Patient states she has no further needs or concerns at this time. CM to follow for discharge planning needs that may arise. PCP: Vazquez Specialists: BRENDA Xie; Jony, Allergy Preferred Pharmacy: [facility] retail Insurance: [facility] MHS Prescription Benefit: yes Living Will/HPOA: none LNOK: Living Arrangements: Patient lives with in a single story home with 2-3 and railing to enter. Patient states she is independent at home. Transportation: self/ DME/HHC: Patient states she has raised toilet seat. Disposition Plan: Patient to discharge home with family support and follow-up plans in place. Dahiana CHAVIRA, RN, CM
--- NOTE | 2021-10-07 12:05 | PN.HOSP_ITS ---
Subjective Subjective Follow-up on Acute NSTEMI: Patient was seen and examined. Denied any active chest pain. Complained of some discomfort in her back. She believes it is related to a mattress on her bed. Denied dizziness or palpitations. Denied any history of heart disease. Objective Data Objective Data Vital Signs: Vital Signs Temp Pulse Resp BP Pulse Ox 98 F 78 16 126/69 H 97 10/07/21 12:00 10/07/21 12:00 10/07/21 12:00 10/07/21 12:00 10/07/21 12:00 Oxygen Delivery Method Room Air Weight: 73.9 kg Body Mass Index (BMI) 27.1 Intake & Output: Intake and Output for Last 24 Hours 10/05/21 10/06/21 10/07/21 23:59 23:59 23:59 Intake Total 240 / 240 240 / 240 Balance 240 / 240 240 / 240 Lab / Micro Data Result Diagrams: 10/07/21 01:26 10/07/21 01:26 Labs: Laboratory Results - last 24 hr 10/06/21 18:28: WBC 3.4 L, RBC 4.46, Hgb 13.6, Hct 41.9, MCV 93.9, MCH 30.5, MCHC 32.5, RDW Std Deviation 51.5 H, RDW Coeff of Kiya 15.2 H, Plt Count 45 L*, MPV 11.2, Immature Gran % (Auto) 0.300, Neut % (Auto) 61.7, Lymph % (Auto) 25.5, [place] % (Auto) 8.9, Eos % (Auto) 3.3, Baso % (Auto) 0.3, Absolute Neuts (auto) 2.1, Absolute Lymphs (auto) 0.86, Nucleated RBC % 0, Differential Comment SCANNED, Diff Path Review January foll 10/06/21 18:28: Sodium 140, Potassium 3.8, Chloride 110 H, Carbon Dioxide 25.0, Anion Gap 5, BUN 14, Creatinine 0.52 L, Estim Creat Clear Calc 100.94, Est GFR (MDRD) Af Amer 155, Est GFR (MDRD) Non-Af 128, BUN/Creatinine Ratio 27.2 H, Glucose 124 H, Calcium 8.3 L, Troponin I High Sens 96 H 10/06/21 20:55: Troponin I High Sens 1126 H* 10/07/21 01:26: WBC 2.8 L, RBC 4.15 L, Hgb 12.7, Hct 38.7, MCV 93.3, MCH 30.6, MCHC 32.8, RDW Std Deviation 51.5 H, RDW Coeff of Kiya 15.1 H, Plt Count 38 L*, MPV 11.4, Immature Gran % (Auto) 0.000, Neut % (Auto) 60.2, Lymph % (Auto) 27.8, [place] % (Auto) 9.5, Eos % (Auto) 2.5, Baso % (Auto) 0.0, Absolute Neuts (auto) 1.7 L, Absolute Lymphs (auto) 0.79 L, Nucleated RBC % 0, Differential Comment S CANNED, Diff Path Review January, Platelet Estimate MKD 10/07/21 01:26: Sodium 144, Potassium 3.9, Chloride 116 H, Carbon Dioxide 24.0, Anion Gap 4 L, BUN 12, Creatinine 0.37 L, Estim Creat Clear Calc 141.86, Est GFR (MDRD) Af Amer 229, Est GFR (MDRD) Non-Af 189, BUN/Creatinine Ratio 32.6 H, Glucose 102, Calcium 8.0 L, Total Bilirubin 0.60, AST 27, ALT 27, Alkaline Phosphatase 78, Total Protein 5.3 L, Albumin 2.5 L, Globulin 2.8, Albumin/Globulin Ratio 0.9, Triglycerides 35, Cholesterol 137, LDL Cholesterol 76, VLDL Cholesterol 7, HDL Cholesterol 54 10/07/21 01:26: Troponin I High Sens 2585 H* Radiography Diagnostic Testing: Radiology Impression Chest X-Ray 10/06/21 18:54 IMPRESSION: Degenerative changes, as described above. No demonstrated acute cardiopulmonary process. Electronically Signed: Maurisio Cao DO at 19:52 EST Tel [phone], Service support , Echocardiogram 10/07/21 05:55 Interpretation Summary The estimated ejection fraction is 55-60 %. Grade #1 diastolic Dysfunction __ Ordering Physician: Nickolas Arboleda Referring Physician: Lionel Shukla Chi Performed By: Devin Torres RCS Rhythm Strip Rhythm Strip: Sinus Rhythm Rate: 71 Ectopy: None Physical Exam Narrative Physical exam: General: Alert, Oriented x3, Cooperative, No apparent distress, Well developed HEENT: Atraumatic Oral: Moist Mucosa Neck: Supple Lungs: Clear to auscultation Cardiovascular: HS I+II, regular, no murmurs Abdomen: Bowel Sounds Present, Soft, Non Tender Extremities: Bilateral leg edema +1, evidence of venous insufficiency, healing bruises of the lower extremities Assessment & Plan Assessment/Plan (1) NSTEMI, initial episode of care: (2) Chest pain: QUALIFIERS: Chest pain type: unspecified Qualified Code(s): R07.9 - Chest pain, unspecified (3) Primary biliary cholangitis: PLAN: 1. Acute non-STEMI in a patient with no history of heart disease She however has history of mixed connective tissue disease EKG shows no acute ST-T changes, troponins peaked to more than 2500 Cardiology and hematology consulted Her care is complicated by severe thrombocytopenia 2D echo shows EF of 55 to 60% CTA of the chest with calcium scoring recommended by cardiology 2. Severe thrombocytopenia, acute on chronic, history of liver cirrhosis Hematology consulted 3. Primary biliary cholangitis with liver cirrhosis, follows with GI in the outpatient, continue carvedilol, Ursodiol, spironolactone, isosorbide, Ocaliva 4. Mixed connective tissue disease, continue on hydroxychloroquine 5. COPD, not in acute exacerbation, continue as needed breathing treatment, Dulera Singulair 6. DVT PPx- SCDs Charges/Coding Visit Charges Inpatient E&M: 37044 Subs Hosp L2
[2021-10-07] MEDS: Isosorbide Mononitrate 30 MG Tablet PO (13:47)
--- NOTE | 2021-10-07 14:10 | ONC.CONSULT ---
Assessment & Plan Assessment/Plan (1) Thrombocytopenia: Status: Chronic Code(s): D69.6 - Thrombocytopenia, unspecified Plan: Platelets 45,000 on admission yesterday and 38,000 today. I did not have previous hematology records for review although I did review all of the CBCs performed at [facility] available for her. Thrombocytopenia is evident as far back as 2012 and secondary to chronic liver disease. At the present, she is not endorsing any episodes of active bleeding. If cardiology believes benefit of using ASA outweighs bleeding risk given NSTEMI, advise platelets to remain above 30,000 and maintained absence of bleeding to consider ASA. (2) Leukopenia: Status: Chronic Code(s): D72.819 - Decreased white blood cell count, unspecified Qualifiers: Leukopenia type: unspecified Qualified Code(s): D72.819 - Decreased white blood cell count, unspecified Plan: Mild as evidenced by white blood cell count 2.8 today, ANC 1.7 leukocytes are also low. Again in reviewing CBCs dating back to 2012, this leukopenia may be related to Plaquenil use. (3) Liver cirrhosis: Status: Chronic Code(s): K74.60 - Unspecified cirrhosis of liver Qualifiers: Ascites presence: without ascites Hepatic cirrhosis type: unspecified hepatic cirrhosis Qualified Code(s): K74.60 - Unspecified cirrhosis of liver Plan: Complicates care. Case discussed with Dr. Klaus Dawson who is in agreement with aforementioned plan. HPI Consult Data Date of Service:: 10/18/21 PCP / Referring Provider: Dr. Lionel Shukla MD Attending: Dr. Kathrin Giron MD Chief Complaint Chief Complaint: Thrombocytopenia History of Present Illness History of Present Illness: Ms. Edna Noble is a very pleasant 61-year-old woman with past medical history positive for osteoporosis, liver cirrhosis and portal hypertension, mixed connective tissue disorder who presented to [facility] ED yesterday with complaints of acute substernal chest pain, nausea. Found to have elevated troponin level, platelet count 45,000 and WBC 3.4. She was given 324 mg ASA in the ED. Given her pain responded to nitroglycerin and considering other risk factors, she was admitted for further cardiac evaluation. Upon entering the room, the patient is sitting upright in bedside chair. Reports a long time ago she was evaluated by hematology at [facility] for thrombocytopenia. States she was told thrombocytopenia was secondary to chronic liver disease, cannot recall undergoing any additional lab work aside from a CBC or BMBX. Admits she bruises easily but denies any overt episodes of active bleeding including epistaxis, melena/hematochezia, hematuria. Occasionally experiences right upper quadrant pain but otherwise no abdominal pain or changes in her bowel habits. Patient did have COVID19 August 2020 that did not require hospitalization but was given steroids/atb per her pcp. Reports she maintains close follow-up with GI, Dr. Roche every 6 months for liver MRI and AFP and also with her zoo keeper who prescribes Plaquenil for the management of mixed connective tissue disease (has been told she her symptomatology is consistent with Sjogren's, Raynaud's, and lupus however symptoms are well managed on current medications and she has taken Plaquenil for 3 years). Former smoker, denies EtOH use or use of NSAIDs, PPIs at home. Advanced Directives Power of Operations Processor: No Living Will: No [facility] Medical History (Updated 10/17/21 @ 10:12 by Kenya Echevarria) Asthma Cirrhosis of liver COVID-19 virus detected (09/06/21) DVT (deep venous thrombosis) History of non-ST elevation myocardial infarction (NSTEMI) (10/06/21) Leukopenia Liver cirrhosis Mixed connective tissue disease Portal hypertension Thrombocytopenia Home Medications Incruse Ellipta 1 inh INHALATION DAILY 09/08/21 [History Last Taken 10/17/21] Ocaliva 5 mg PO DAILY 09/08/21 [History Last Taken 10/05/21] carvedilol 3.125 mg PO BID 09/08/21 [History Last Taken 10/17/21] furosemide 20 mg PO DAILY PRN 09/08/21 [History Last Taken Unknown] montelukast [Singulair] 10 mg PO DAILY 09/08/21 [History Last Taken 10/05/21] spironolactone 100 mg PO DAILY 09/08/21 [History Last Taken 10/05/21] ursodiol 500 mg PO TID 09/08/21 [History Last Taken 10/06/21 12:00] aspirin [Aspirin Low Dose] 81 mg PO DAILY 30 Days #30 tab 10/07/21 [Rx Last Taken 10/17/21] isosorbide mononitrate 30 mg PO DAILY 30 Days #30 tab 10/07/21 [Rx Last Taken Unknown] albuterol sulfate 90 mcg/actuation aerosol inhaler 2 puff INHALATION Q6H PRN 10/13/21 [History Last Taken Unknown] cholecalciferol (vitamin D3) 25 mcg (1,000 unit) capsule 25 mcg PO DAILY 10/13/21 [History Last Taken Unknown] fluticasone 250 mcg-salmeterol 50 mcg/dose blistr powdr for inhalation 1 inh INHALATION BID 10/13/21 [History Last Taken 10/17/21] hydroxychloroquine 100 mg tablet 150 mg PO BID tab 10/13/21 [History Last Taken Unknown] immune glob G 1 gram/5 mL(20 %)-prol-IgA 0-50 mcg/mL subcutaneous soln 5 ml SUBCUT QWEEK ml 10/13/21 [History Last Taken Unknown] Allergy/AdvReac Type Severity Reaction Status Date / Time No Known Allergies Allergy Verified 10/13/21 10:55 Family History Other Cancer Depression Hypertension Surgical History (Updated 10/17/21 @ 10:12 by Kenya Echevarria) History of ankle surgery History of delivery History of left heart catheterization (10/17/21) Social History Smoking Status: Former smoker ROS Constitutional Constitutional: Denies difficulty sleeping, fever(s), frequent falls, headache(s) or weight loss Eyes Eyes: Denies change in vision Cardiovascular Cardiovascular: Reports fatigue; Denies chest pain, dizziness, edema or palpitations Respiratory/Chest Respiratory/Chest: Denies cough, dyspnea on exertion or hemoptysis Gastrointestinal Gastrointestinal: Reports abdominal pain; Denies coffee ground emesis, constipation, diarrhea, dysphagia, early satiety or hematochezia Genitourinary Genitourinary: Denies burning urination, hematuria, urinary frequency, urinary incontinence or urinary urgency Integumentary Integumentary: Reports other Details: + ecchymosis ; Denies jaundice, lesions or rash Neurologic Neurologic: Denies dizziness, focal weakness, headache(s), numbness or paresthesias Psychiatric Psychiatric: Denies anxiety or depression Hematologic/Lymphatic Hematologic/Lymphatic: Reports easy bleeding and easy bruising Physical Exam Const alert, oriented x3 and no apparent distress General Appearance: cooperative; Negative for in distress HEENT normocephalic and head/scalp atraumatic Head and Scalp: atraumatic Eyes conjunctivae normal and no scleral icterus Neck supple and no JVD General: trachea midline Chest Chest: symmetrical chest wall rise Resp normal respiratory effort Effort and Inspection: able to speak in complete sentences Auscultation: clear to auscultation bilaterally Cardio regular rate, regular rhythm, S1 normal heart sound and S2 normal heart sound GI normal to inspection, nondistended, normoactive bowel sounds, soft to palpation and hepatosplenomegaly Palpation: tender RUQ, hepatomegaly and splenomegaly Extremity no clubbing, cyanosis or edema and no calf tenderness Skin Skin Narrative: Multiple areas of ecchymosis BUE and BLE in various stages of healing General Skin Exam: ecchymosis; Negative for petechiae Psych cooperative and affect normal Vital Signs Temperature 98 F 10/07/21 12:00 Temperature Source Oral 10/07/21 12:00 Pulse Rate 78 10/07/21 12:00 Pulse Strength Normal (2+) 10/07/21 07:53 Respiratory Rate 16 10/07/21 12:00 Respiratory Effort Non-Labored 10/07/21 07:50 Respiratory Depth Normal 10/07/21 07:50 Respiratory Pattern Normal 10/07/21 07:56 Blood Pressure 126/69 H 10/07/21 12:00 Blood Pressure Mean 88 10/07/21 12:00 Blood Pressure Source Monitor 10/07/21 12:00 Blood Pressure Position Semi-Fowlers 10/07/21 12:00 Blood Pressure Location Left Arm 10/07/21 12:00 Pulse Ox 97 10/07/21 12:00 Oxygen Delivery Method Room Air 10/07/21 12:00 Laboratory Results - last 24 hr 10/06/21 18:28: WBC 3.4 L, RBC 4.46, Hgb 13.6, Hct 41.9, MCV 93.9, MCH 30.5, MCHC 32.5, RDW Std Deviation 51.5 H, RDW Coeff of Kiya 15.2 H, Plt Count 45 L*, MPV 11.2, Immature Gran % (Auto) 0.300, Neut % (Auto) 61.7, Lymph % (Auto) 25.5, [place] % (Auto) 8.9, Eos % (Auto) 3.3, Baso % (Auto) 0.3, Absolute Neuts (auto) 2.1, Absolute Lymphs (auto) 0.86, Nucleated RBC % 0, Differential Comment SCANNED, Diff Path Review Gisselle gallo 10/06/21 18:28: Sodium 140, Potassium 3.8, Chloride 110 H, Carbon Dioxide 25.0, Anion Gap 5, BUN 14, Creatinine 0.52 L, Estim Creat Clear Calc 100.94, Est GFR (MDRD) Af Amer 155, Est GFR (MDRD) Non-Af 128, BUN/Creatinine Ratio 27.2 H, Glucose 124 H, Calcium 8.3 L, Troponin I High Sens 96 H 10/06/21 20:55: Troponin I High Sens 1126 H* 10/07/21 01:26: WBC 2.8 L, RBC 4.15 L, Hgb 12.7, Hct 38.7, MCV 93.3, MCH 30.6, MCHC 32.8, RDW Std Deviation 51.5 H, RDW Coeff of Kiya 15.1 H, Plt Count 38 L*, MPV 11.4, Immature Gran % (Auto) 0.000, Neut % (Auto) 60.2, Lymph % (Auto) 27.8, [place] % (Auto) 9.5, Eos % (Auto) 2.5, Baso % (Auto) 0.0, Absolute Neuts (auto) 1.7 L, Absolute Lymphs (auto) 0.79 L, Nucleated RBC % 0, Differential Comment SCANNED, Diff Path Review January [facility], Platelet Estimate MKD 10/07/21 01:26: Sodium 144, Potassium 3.9, Chloride 116 H, Carbon Dioxide 24.0, Anion Gap 4 L, BUN 12, Creatinine 0.37 L, Estim Creat Clear Calc 141.86, Est GFR (MDRD) Af Amer 229, Est GFR (MDRD) Non-Af 189, BUN/Creatinine Ratio 32.6 H, Glucose 102, Calcium 8.0 L, Total Bilirubin 0.60, AST 27, ALT 27, Alkaline Phosphatase 78, Total Protein 5.3 L, Albumin 2.5 L, Globulin 2.8, Albumin/Globulin Ratio 0.9, Triglycerides 35, Cholesterol 137, LDL Cholesterol 76, VLDL Cholesterol 7, HDL Cholesterol 54 10/07/21 01:26: Troponin I High Sens 2585 H* Diagnostic Data Chest X-Ray 10/06/21 18:54 IMPRESSION: Degenerative changes, as described above. No demonstrated acute cardiopulmonary process. Electronically Signed: Maurisio Cao DO at 19:52 EST Tel [phone], Service support , Echocardiogram 10/07/21 05:55 Interpretation Summary The estimated ejection fraction is 55-60 %. Grade #1 diastolic Dysfunction Ordering Physician: Nickolas Arboleda Referring Physician: Lionel Shukla Chi Performed By: Devin Torres RCS
--- NOTE | 2021-10-07 15:26 | DCINST_ITS ---
Discharge Instructions Diet Discharge Diet: Low fat / Low cholesterol and 2000 mg Sodium Diet Activity Discharge Activity: Return to Normal Activity Follow Up Care Test Results: Test results from this visit will be discussed in further detail at your follow-up appointment, if applicable. Discharge Plan Admission Admit Date/Time: 10/06/21 20:55 Primary Reason for Your Visit: Acute NSTEMI Attending Provider: Kathrin Giron Primary Care Provider: Lionle Shukla Chi Consulting Providers: Saba Vallecillo ; Lexa Chaudhry ; Nickolas Trinidad ; Klaus Dawson ; Ryan Spring ; Joshua Medellin ; Pato Koroma ; Estevan Garcia ; Migdalia Vasquez FINANCE DIRECTOR Discharge Orders/Prescriptions Prescriptions: New isosorbide mononitrate 30 mg Tablet Extended Release 24 Hr 30 mg PO DAILY 30 Days Qty: 30 RF: 0 aspirin [Aspirin Low Dose] 81 mg tablet,delayed release (DR/EC) 81 mg PO DAILY 30 Days Qty: 30 RF: 0 Continued spironolactone 100 mg tablet 100 mg PO DAILY RF: 0 carvedilol 3.125 mg tablet 3.125 mg PO BID RF: 0 montelukast [Singulair] 10 mg Tablet 10 mg PO DAILY RF: 0 furosemide 20 mg tablet 20 mg PO DAILY PRN (Reason: swelling) RF: 0 hydroxychloroquine 200 mg tablet 150 mg PO DAILY RF: 0 ursodiol 500 mg tablet 500 mg PO TID RF: 0 Dulera 200-5 mcg/actuation HFA aerosol inhaler 2 puff INHALATION BID RF: 0 Incruse Ellipta 62.5 mcg/actuation blister with device 1 inh INHALATION DAILY RF: 0 Ocaliva 5 mg tablet 5 mg PO DAILY RF: 0 Referrals / Follow Up: Lionel Shukla Chi, MD [Primary Care Provider] - Within 2 Weeks Мария Briggs PA [PHYSICIAN COMPUTER FORWARDING SYSTEM MARKUP CLERK] - See Referral Note (On Sunday10/10/21) Disposition Disposition (needs filled in before D/C Order can be placed): Home, Self Care
--- NOTE | 2021-10-07 15:27 | PCM.DC.SUM ---
Providers Date of Admission: 10/06/21 Date of Discharge: 10/07/21 Primary Care Physician: Dr. Lionel Shukla MD Consultations 10/06/21 21:41 Consult: Cardiology Routine Consulting Provider: Saba Vallecillo Reason for Consult: NSTEMI EMERGENT Consult: No Notified: Yes Date Notified: 10/06/21 Time Notified: 21:41 Method of Notification: Verbal Method of Consult:: In-Person 10/07/21 07:37 Consult: Oncology/Hematology Routine Consulting Provider: [facility] ([facility]) Reason for Consult: Thrombocytopenia EMERGENT Consult: No Notified: Yes Date Notified: 10/07/21 Time Notified: 08:08 Method of Notification: paged Reason For Visit: CHEST PAIN Diagnosis Discharge Diagnosis (1) Thrombocytopenia: Status: Chronic Code(s): D69.6 - Thrombocytopenia, unspecified (2) Leukopenia: Status: Chronic Code(s): D72.819 - Decreased white blood cell count, unspecified Qualifiers: Leukopenia type: unspecified Qualified Code(s): D72.819 - Decreased white blood cell count, unspecified (3) Liver cirrhosis: Status: Chronic Code(s): K74.60 - Unspecified cirrhosis of liver Qualifiers: Ascites presence: without ascites Hepatic cirrhosis type: unspecified hepatic cirrhosis Qualified Code(s): K74.60 - Unspecified cirrhosis of liver (4) NSTEMI, initial episode of care: Status: Acute Code(s): I21.4 - Non-ST elevation (NSTEMI) myocardial infarction Medications at Discharge Home Medications Dulera 2 puff INHALATION BID 09/08/21 Incruse Ellipta 1 inh INHALATION DAILY 09/08/21 Ocaliva 5 mg PO DAILY 09/08/21 carvedilol 3.125 mg PO BID 09/08/21 furosemide 20 mg PO DAILY PRN 09/08/21 hydroxychloroquine 150 mg PO DAILY 09/08/21 montelukast [Singulair] 10 mg PO DAILY 09/08/21 spironolactone 100 mg PO DAILY 09/08/21 ursodiol 500 mg PO TID 09/08/21 aspirin [Aspirin Low Dose] 81 mg PO DAILY 30 Days #30 tab 10/07/21 isosorbide mononitrate 30 mg PO DAILY 30 Days #30 tab 10/07/21 Hospital Course Operations None Procedures 2-D Echocardiogram Summary of Care Provided Minutes Spent on Discharge: 35 Hospital Course: 61-year-old female with past medical history of primary biliary cholangitis, mixed connective tissue disease, chronic pancytopenia secondary to liver cirrhosis who comes in with complaint plaints of chest pain, which was described as substernal and radiates across the chest down both arms and into her jaw. This was associate with nausea but no vomiting. Patient's admitting EKG in the ED was unremarkable. Troponins were slightly elevated. She was admitted to the PCU and her troponins were trended. Her troponins peaked at 2500. Cardiology was consulted. 2D echo shows EF of 55 to 60%. Patient has acute on chronic thrombocytopenia. She was on aspirin from admission. Platelet count dropped from 40,000-38,000. Hematology was consulted. Patient after discussing with cardiology after for CTA of the chest/coronaries. This can only be done in the outpatient on Sunday10/10/21. Patient was started on aspirin, isosorbide in addition to her Coreg. She will follow-up with cardiology on Sunday as well as with her primary doctor within 1 to 2 weeks. Physical Exam Narrative see progress note Weight / BMI Weight Weight: 73.9 kg Body Mass Index (BMI) 27.1 ABG / Lab / Microbiology Data Result Diagrams: 10/07/21 01:26 10/07/21 01:26 Laboratory: Laboratory Results - last 24 hr 10/06/21 18:28: WBC 3.4 L, RBC 4.46, Hgb 13.6, Hct 41.9, MCV 93.9, MCH 30.5, MCHC 32.5, RDW Std Deviation 51.5 H, RDW Coeff of Kiya 15.2 H, Plt Count 45 L*, MPV 11.2, Immature Gran % (Auto) 0.300, Neut % (Auto) 61.7, Lymph % (Auto) 25.5, Clinch % (Auto) 8.9, Eos % (Auto) 3.3, Baso % (Auto) 0.3, Absolute Neuts (auto) 2.1, Absolute Lymphs (auto) 0.86, Nucleated RBC % 0, Differential Comment SCANNED, Diff Path Review January10/06/21 18:28: Sodium 140, Potassium 3.8, Chloride 110 H, Carbon Dioxide 25.0, Anion Gap 5, BUN 14, Creatinine 0.52 L, Estim Creat Clear Calc 100.94, Est GFR (MDRD) Af Amer 155, Est GFR (MDRD) Non-Af 128, BUN/Creatinine Ratio 27.2 H, Glucose 124 H, Calcium 8.3 L, Troponin I High Sens 96 H 10/06/21 20:55: Troponin I High Sens 1126 H* 10/07/21 01:26: WBC 2.8 L, RBC 4.15 L, Hgb 12.7, Hct 38.7, MCV 93.3, MCH 30.6, MCHC 32.8, RDW Std Deviation 51.5 H, RDW Coeff of Kiya 15.1 H, Plt Count 38 L*, MPV 11.4, Immature Gran % (Auto) 0.000, Neut % (Auto) 60.2, Lymph % (Auto) 27.8, Clinch % (Auto) 9.5, Eos % (Auto) 2.5, Baso % (Auto) 0.0, Absolute Neuts (auto) 1.7 L, Absolute Lymphs (auto) 0.79 L, Nucleated RBC % 0, Differential Comment SCANNED, Diff Path Review January, Platelet Estimate MKD 10/07/21 01:26: Sodium 144, Potassium 3.9, Chloride 116 H, Carbon Dioxide 24.0, Anion Gap 4 L, BUN 12, Creatinine 0.37 L, Estim Creat Clear Calc 141.86, Est GFR (MDRD) Af Amer 229, Est GFR (MDRD) Non-Af 189, BUN/Creatinine Ratio 32.6 H, Glucose 102, Calcium 8.0 L, Total Bilirubin 0.60, AST 27, ALT 27, Alkaline Phosphatase 78, Total Protein 5.3 L, Albumin 2.5 L, Globulin 2.8, Albumin/Globulin Ratio 0.9, Triglycerides 35, Cholesterol 137, LDL Cholesterol 76, VLDL Cholesterol 7, HDL Cholesterol 54 10/07/21 01:26: Troponin I High Sens 2585 H* Radiography Diagnostic Testing: Radiology Impression Chest X-Ray 10/06/21 18:54 IMPRESSION: Degenerative changes, as described above. No demonstrated acute cardiopulmonary process. Electronically Signed: Maurisio Cao DO at 19:52 EST Tel [phone], Service support , Echocardiogram 10/07/21 05:55 Interpretation Summary The estimated ejection fraction is 55-60 %. Grade #1 diastolic Dysfunction Ordering Physician: Nickolas Arboleda Referring Physician: Lionel Shukla Chi Performed By: Devin Torres RCS D/C Instructions Discharge Diet: Low fat / Low cholesterol and 2000 mg Sodium Diet Meaningful Use Info Meaningful Use Diagnoses (Choose all that apply): AMI AMI/Post PCI/Angioplasty Aspirin given w/in 24hrs of arrival?: Yes ASA at discharge?: Yes Antiplatelet Therapy at Discharge:: Yes Statins at discharge?: Yes Lavon/ARB at discharge?: No Reason Lavon/ARB not ordered:: Not indicated Beta Orion at discharge?: Yes Done w/ Acute ME measure.: Yes Documented LVEF (%): 55 Discharge Plan Admission Admit Date/Time: 10/06/21 20:55 Primary Reason for Your Visit: Acute NSTEMI Attending Provider: Kathrin Giron Primary Care Provider: Lionel Shukla Chi Consulting Providers: Saba Vallecillo ; Lexa Chaudhry ; Nickolas Trinidad ; Klaus Dawson ; Ryan Spring ; Joshua Medellin ; Pato Koroma ; Estevan Garcia ; Migdalia Vasquez DATABASE MANAGER Discharge Orders/Prescriptions Prescriptions: New isosorbide mononitrate 30 mg Tablet Extended Release 24 Hr 30 mg PO DAILY 30 Days Qty: 30 RF: 0 aspirin [Aspirin Low Dose] 81 mg tablet,delayed release (DR/EC) 81 mg PO DAILY 30 Days Qty: 30 RF: 0 Continued spironolactone 100 mg tablet 100 mg PO DAILY RF: 0 carvedilol 3.125 mg tablet 3.125 mg PO BID RF: 0 montelukast [Singulair] 10 mg Tablet 10 mg PO DAILY RF: 0 furosemide 20 mg tablet 20 mg PO DAILY PRN (Reason: swelling) RF: 0 hydroxychloroquine 200 mg tablet 150 mg PO DAILY RF: 0 ursodiol 500 mg tablet 500 mg PO TID RF: 0 Dulera 200-5 mcg/actuation HFA aerosol inhaler 2 puff INHALATION BID RF: 0 Incruse Ellipta 62.5 mcg/actuation blister with device 1 inh INHALATION DAILY RF: 0 Ocaliva 5 mg tablet 5 mg PO DAILY RF: 0 Referrals / Follow Up: Lionel Shukla Chi, MD [Primary Care Provider] - Within 2 Weeks Мария Briggs PA [PHYSICIAN CLOTHING PATTERNMAKER] - See Referral Note (On Sunday10/10/21) Disposition Disposition (needs filled in before D/C Order can be placed): Home, Self Care Charges/Coding Visit Charges Inpatient E&M: 97616 Disch Hosp
[2021-10-10 09:06] LABS: Pathologist Review Reviewed
[2021-10-10 09:06] LABS: Pathologist Review Reviewed
== END 2021-10-07 16:36 | disposition home or self-care (01) | DRG 281 ==
LOC: ED 20:04 → PCU 20:22
PROVIDERS: Admitting Provider Hospitalist; Emergency Provider Emergency Medicine; PCP Family Medicine Geriatric Medicine; Visit Provider Internal Medicine
DX: I21.4 Non-ST elevation (NSTEMI) myocardial infarction (principal); D61.818 Other pancytopenia; K76.6 Portal hypertension; M35.1 Other overlap syndromes; K83.09 Other cholangitis; J44.9 Chronic obstructive pulmonary disease, unspecified; K74.3 Primary biliary cirrhosis; I10 Essential (primary) hypertension; Z87.891 Personal history of nicotine dependence; Z79.82 Long term (current) use of aspirin; Z79.51 Long term (current) use of inhaled steroids; M81.0 Age-related osteoporosis without current pathological fracture; Z86.718 Personal history of other venous thrombosis and embolism; Z79.899 Other long term (current) drug therapy; Z86.16 Personal history of COVID-19
CPT/HCPCS: 36415; 71045; 80048; 80053; 80061; 84484; 85025; 93005; 93306; 94640; 99285; A4216

== ENCOUNTER 2021-10-10 07:49 | Outpatient (CLI) | payer OTHER, SELFPAY ==
--- NOTE | 2021-10-10 07:51 | CT_ITS ---
STUDY: CT CHEST WITHOUT CONTRAST REASON FOR EXAM: Female, 61 years old. NSTEMI OVER READ ONLY RADIATION DOSAGE (If Supplied By Facility): CTDIvol = ( 20.5 ) mGy, DLP = ( 1050.87 ) mGycm TECHNIQUE: Transaxial imaging was performed without the administration of intravenous contrast material. Individualized dose optimization techniques were used for this CT. COMPARISON: None. FINDINGS: There are increased markings at the lung bases worse at the left lung base with areas of bronchiectasis. This is suggestive of scarring worse in the left lower lobe. There is no demonstrated pleural abnormality. There are calcifications of the coronary arteries. There are multiple small lymph nodes within the mediastinum, which are normal in size and morphology most compatible with reactive lymph hyperplasia. Normal hilar regions. Normal unenhanced pulmonary arteries. There is atherosclerotic calcification of the aortic arch with tortuosity and elongation of the aortic arch and descending thoracic aorta. There are degenerative changes of the thoracic spine. There is no demonstrated abnormality of the visualized upper abdomen. IMPRESSION: Bibasilar scarring with bronchiectasis is more prominent at the left lung base. Coronary artery calcification. Electronically Signed: Edgardo eGorge MD at 10:12 EST , Service support , STUDY: CTA CHEST REASON FOR EXAM: Female, 61 years old. NSTEMI OVER READ ONLY RADIATION DOSAGE (If Supplied By Facility): CTDIvol = ( 20.5 ) mGy, DLP = ( 1050.87 ) mGycm TECHNIQUE: The examination was performed with the intravenous administration of ISOVUE 370 67ml. Post-processing of the angiographic images was performed, with multiplanar reformation and 3D reconstruction. Individualized dose optimization techniques were used for this CT. COMPARISON: None. FINDINGS: There is atherosclerotic calcification of the aortic arch with tortuosity. There is no demonstrated aortic dissection. There are calcifications of the coronary arteries. There are visualized mediastinal lymph nodes, which are within normal size limits, and with normal morphology. Normal hilar regions. Normal visualized trachea and bronchi. The lungs are well expanded. Findings in keeping with the scarring and bronchiectasis at both lung bases more pronounced on the left side. Normal pleura. Normal chest wall structures. There are degenerative changes of thoracic spine. Normal visualized upper abdomen. CT/Limited Chest CT w/CCTA IMPRESSION: Scarring at the lung bases with bronchiectasis worse at the left lung base. Electronically Signed: Edgardo George MD at 10:13 EST , Service support ,
[2021-10-10 08:07] VITALS: BP 141/57; PULSE 69; RESP 14; O2SAT 98; BMI 26.9
[2021-10-10 08:32] VITALS: BP 141/57; PULSE 67
[2021-10-10] MEDS: Nitroglycerin SL (ED/IMG/CATH) 0.4 MG TABLET SL (08:32)
[2021-10-10 08:50] VITALS: BP 141/67; PULSE 79; RESP 14; O2SAT 96
--- NOTE | 2021-10-10 17:07 | CA.SCORE ---
Calcium Scoring Coronary Calcium Scoring: High-resolution Computed Tomographic imaging of the chest was performed on [10/07/2021 ], with particular attention paid to the coronary arteries. Images from the examination were analyzed for the presence and extent of coronary artery calcification , using coronary calcium quantification software. The patient tolerated the procedure well and there were no complications. The results of the coronary calcification analysis are provided below. Left main coronary artery score 0 Left anterior descending artery score 0 Left circumflex artery score 0 Right coronary artery dominant score 0 Total Agatston score 0 The above is suggestive of no identifiable atherosclerotic plaquing. Very low cardiovascular disease risk is likely. Calcium Scoring Interpretation: 0 No identifiable atherosclerotic plaque. Very low cardiovascular disease risk. <5% chance of presence coronary artery disease A Negative Examination 1-10 Minimal Plaque burden. Significant coronary artery disease very unlikely. 11-100 Mild plaque burden. Likely mild or minimal coronary atherosclerosis. 101-400 Moderate plaque burden Moderate non-obstructive coronary artery disease highly likely. Over 400 Extensive plaque burden. High likelihood of at least one significant coronary stenosis (>50% diameter)
--- NOTE | 2021-10-10 18:33 | CCTA.WCONT ---
CCTA w/Cont Coronary Arteries Date of Study:: 10/10/21 Chest pain: Non-ST segment elevation [place] Consent:: Per patient The patient underwent high-resolution CT imaging of the chest on 10-10-2019 with particular attention to the coronary arteries. The images were analyzed for the presence and extent of coronary artery calcification using coronary calcium quantification software as well as being evaluated angiographically. The patient was reported as tolerating the procedure well with no adverse events. Technique: Misregistration artifact is present. LEFT MAIN CORONARY ARTERY: The left main coronary artery appears to be a large vessel giving rise to the left anterior descending and left circumflex coronary arteries. It appears patent and angiographically within normal limits. LEFT ANTERIOR DESCENDING CORONARY ARTERY: The left anterior descending coronary artery is a large vessel giving rise to a diagonal branch system. It appears patent and angiographically within normal limits. LEFT CIRCUMFLEX CORONARY ARTERY: The left circumflex coronary artery appears to be a nondominant vessel giving rise to an obtuse marginal system. It appears to be patent and angiographically within normal limits. RIGHT CORONARY ARTERY: The right coronary artery appears to be a large dominant vessel giving rise to the right PDA. The proximal portion of the right coronary artery is not well visualized potentially secondary to the misregistration artifact. Otherwise the right coronary artery appears to be patent and angiographically within normal limits. THORACIC AORTA: The thoracic aorta appears to be patent with no angiographic significant disease appreciated. PULMONARY ARTERY: The main pulmonary artery and proximal portions of the right and left pulmonary artery appear to be patent with no obvious filling defects. LEFT ATRIUM/APPENDAGE: The left atrial appendage appears to be patent with no obvious filling defects. MITRAL VALVE: The mitral valve appears to be bileaflet. AORTIC VALVE: The aortic valve appears to be trileaflet. LEFT VENTRICLE: The left ventricle appears to demonstrate grossly normal left ventricular size, wall motion, and systolic function. The gated LVEF was reported at 51%. CORONARY CALCIUM SCORE: The coronary calcium score has been reported at 0 which would be indicative, per prepublished reference tables, of less than 5% chance of the presence of CAD.
== END 2021-10-10 23:59 | disposition short-term general hospital (02) ==
LOC: CT 07:50
PROVIDERS: PCP Family Medicine Geriatric Medicine; Referring Provider Physician Assistant Medical; Visit Provider Physician Assistant Medical
DX: I21.4 Non-ST elevation (NSTEMI) myocardial infarction (principal); R94.39 Abnormal result of other cardiovascular function study
CPT/HCPCS: 75571; 75574; 76380; Q9967

== ENCOUNTER 2021-10-13 11:05 | Outpatient (CLI) | payer OTHER, SELFPAY ==
[2021-10-13 12:26] LABS: Absolute Lymphocyte Count 0.91 X10^3/uL (0.83-4.51); Absolute Neutrophil Count 2.5 X10^3/uL (2.0-7.7); Basophil# 0.01 X10^3/uL; Basophil% 0.3 % (0-1); Eosinophil# 0.09 X10^3/uL; Eosinophils% 2.3 % (0-5); Hematocrit 43.8 % (37-47); Hemoglobin 14.6 g/dL (12.0-15.0); Lymphocyte # 0.91 X10^3/ul (0.83-4.51); Lymphocyte % 23.2 % (19-41); Mean Corp Hgb Conc 33.3 g/dL (32-36); Mean Corpuscular Hgb 31.6 pg (27.0-32.0); Mean Corpuscular Volume 94.8 fL (81-99); Mean Platelet Vol. 11.7 fl (6.2-12.0); Monocyte# 0.42 X10^3/uL; Monocyte% 10.7 % (0-10); NRBC Flagged by Analyzer 0 % (0-5); Neutrophil # 2.47 X10^3/uL (2.7-7.7); Neutrophil % 62.7 % (47-70); POSITIVE COUNT YES; Platelet Count 76 K/mm3 (150-450); RBC Distribution Width CV 15.6 % (11.6-14.6); RBC Distribution Width SD 55.1 fl (35.1-43.9); Red Blood Count 4.62 M/mm3 (4.2-5.4); White Blood Count 3.9 K/mm3 (4.4-11.0)
== END 2021-10-13 23:59 | disposition short-term general hospital (02) ==
LOC: LAB 11:07
PROVIDERS: PCP Family Medicine Geriatric Medicine; Referring Provider Internal Medicine Cardiovascular Disease; Visit Provider Internal Medicine Cardiovascular Disease
DX: R07.9 Chest pain, unspecified (principal); D69.6 Thrombocytopenia, unspecified; I25.2 Old myocardial infarction; U07.1 COVID-19; D72.819 Decreased white blood cell count, unspecified
CPT/HCPCS: 36415; 85025

== ENCOUNTER 2021-10-17 06:50 | Day surgery (SDC) | payer OTHER, SELFPAY ==
[2021-10-14 07:57] VITALS: BMI 26.9
--- NOTE | 2021-10-17 09:01 | CL.D_ITS ---
Patient Name: KANU TIJERINA Study Date: 10/17/2021 Performing: Erasmo Thakur MD Ht: 64.96 inches 165 cm : 1960 Wt: 160.94 lbs 73 kg Age: 61 Gender: female BSA: 1.8 PROCEDURE(S) PERFORMED [id number]-([id number])LHC/COR/LV CLINICAL PROFILE AND INDICATIONS Indications: Suspected CAD Heart Failure: None Stress/Imaging Stress/Image Study Performed: No CONCLUSIONS Normal coronary arteries Normal LV size, wall motion,and systolic function RECOMMENDATIONS Medical therapy DESCRIPTION OF PROCEDURE The patient arrived to the procedure lab. The risks and benefits of the procedure as well as a full d escription of our services here and current unavailability of surgical backup were fully explained to the patient and/or their significant other prior to the catheterization. The Timeout was completed, verifying the correct patient and procedure. The patient's procedural site was prepped and draped in the usual fashion. Local anesthetic was given subcutaneously to right radial region with Lidocaine 2% . Using a modified Seldinger technique, arterial access was obtained via the right radial artery, a 6 Fr sheath was inserted. Left Coronary Artery selective angiography was performed in multiple views u sing a 5 Fr. 4.0 [place] catheter. Right Coronary Artery selective angiography was then performed in mu ltiple views using a 5 Fr. 4.0 [place] catheter. Left Ventriculography was performed in TELLEZ projection using a 5 Fr. Pigtail catheter. LV to AO pullback pressures were then recorded.The arterial sheath was pulled and a TR Band was applied for hemostasis, sheath flushed and aspirated. 10 cc of air CORONARY ANGIOGRAPHY DOMINANCE: Right Dominant LEFT HEART ASSESSMENT Left Ventricular Ejection Fraction: by LV Gram 55 % Normal LV wall motion Normal Left Ventricular systolic function Normal Left Ventricular systolic function LEFT MAIN: Angiographically normal LEFT ANTERIOR DESCENDING ARTERY: Angiographically normal CIRCUMFLEX ARTERY: Angiographically normal RIGHT CORONARY ARTERY: Angiographically normal COMPLICATIONS No Complications PROCEDURE MEDICATIONS Fentanyl 50 mcg IV Versed 1 mg IV Versed 1 mg IV Versed 1 mg IV Oxygen: 2 L/min via nasal cannula Heparin given IA 10/17/2021 08:40:48 Verapamil 2.5mg, Ntg 100mcgs, 3000 units of Heparin given IA 10/17/2021 08:40:48 SUMMARY OF HEMODYNAMIC DATA Time AIR REST ECG 07:06:45 AO 104/61 (82) SA 08:42:39 LV 107/0, 7 08:48:17 LV 110/0, 7 08:48:24 LV 106/3, 10 08:49:09 LVp 107/1, 7 08:49:13 AOp 115/55 (81) 08:49:18 08:59:40 Signed By Erasmo Thakur MD On 10/17/2021 9:00:09 AM Erasmo Thakur MD
[2021-10-17 09:17] LABS: Absolute Lymphocyte Count 0.64 X10^3/uL (0.83-4.51); Absolute Neutrophil Count 1.8 X10^3/uL (2.0-7.7); Basophil# 0.01 X10^3/uL; Basophil% 0.4 % (0-1); Eosinophil# 0.04 X10^3/uL; Eosinophils% 1.4 % (0-5); Hematocrit 38.9 % (37-47); Hemoglobin 12.7 g/dL (12.0-15.0); Lymphocyte # 0.64 X10^3/ul (0.83-4.51); Lymphocyte % 22.8 % (19-41); Mean Corp Hgb Conc 32.6 g/dL (32-36); Mean Corpuscular Hgb 30.7 pg (27.0-32.0); Mean Platelet Vol. 11.4 fl (6.2-12.0); Monocyte# 0.32 X10^3/uL; Monocyte% 11.4 % (0-10); NRBC Flagged by Analyzer 0 % (0-5); Neutrophil # 1.79 X10^3/uL (2.7-7.7); Neutrophil % 63.6 % (47-70); POSITIVE COUNT YES; Platelet Count 68 K/mm3 (150-450); RBC Distribution Width CV 15.3 % (11.6-14.6); RBC Distribution Width SD 53.1 fl (35.1-43.9); Red Blood Count 4.14 M/mm3 (4.2-5.4); White Blood Count 2.8 K/mm3 (4.4-11.0)
== END 2021-10-17 23:59 | disposition home or self-care (01) ==
PROVIDERS: PCP Family Medicine Geriatric Medicine; Referring Provider Internal Medicine Cardiovascular Disease; Visit Provider Internal Medicine Cardiovascular Disease
DX: I25.10 Atherosclerotic heart disease of native coronary artery without angina pectoris (principal); K76.6 Portal hypertension; K74.60 Unspecified cirrhosis of liver; J45.909 Unspecified asthma, uncomplicated; I25.2 Old myocardial infarction; Z87.891 Personal history of nicotine dependence; Z86.16 Personal history of COVID-19; Z79.82 Long term (current) use of aspirin; Z79.899 Other long term (current) drug therapy
CPT/HCPCS: 85025; 93458; 99152; 99153; J7040; C1769; C1894; Q9967

== ENCOUNTER 2021-10-26 15:09 | Outpatient (CLI) | payer OTHER, SELFPAY ==
--- NOTE | 2021-10-26 15:11 | BI_ITS ---
MAMMOGRAPHY - BILATERAL SCREENING REASON FOR EXAM: Female, 61 years old. Routine annual screening examination. PERTINENT HISTORY: Mother with breast cancer. Aunt with breast cancer. TECHNIQUE: Digital bilateral breast rafael (3D mammographic acquisition) in the CC and MLO projections. 2-D mediolateral oblique (MLO) and craniocaudad (CC) views of both breasts were obtained. CAD: Full Field Digital Mammography with Computer Added Detection was performed. COMPARISON: Comparison is made with prior examination dated 08/18/2019 and 08/05/2018. FINDINGS: Breast Composition: The breasts are extremely dense, which lowers the sensitivity of mammography. There are no dominant masses or suspicious calcifications. No other significant abnormalities are identified. There has been no significant change since the prior study. BI/SCRN MAMM (CAD)W/RAFAEL BILAT IMPRESSION: Stable bilateral screening mammogram. Yearly follow-up mammogram recommended. (A) ASSESSMENT CATEGORY: BIRADS Category 1: Negative. A letter regarding these results will be sent to the patient by the facility within 30 days. Approximately 10% of breast cancers are not detected by mammography. A normal mammogram should not delay biopsy of a clinically suspicious abnormality. [id number] Electronically Signed: Edgardo George MD at 15:47 EST ,
== END 2021-10-26 23:59 | disposition home or self-care (01) ==
LOC: OPBI 15:09
PROVIDERS: PCP Family Medicine Geriatric Medicine; Referring Provider Family Medicine Geriatric Medicine; Visit Provider Family Medicine Geriatric Medicine
DX: Z12.31 Encounter for screening mammogram for malignant neoplasm of breast (principal)
CPT/HCPCS: 77063; 77067

== ENCOUNTER 2021-11-22 12:27 | Outpatient (CLI) | payer OTHER, SELFPAY ==
--- NOTE | 2021-11-22 12:30 | MRI_ITS ---
EXAM: MR ABDOMEN WITHOUT AND WITH INTRAVENOUS CONTRAST CLINICAL INDICATION: CIRRHOSIS, f/u - no new issues TECHNIQUE: Multiplanar and multisequence MR images of the abdomen without and with intravenous contrast. This report was created using [employer] report [employer] technology. CONTRAST: IV 14ml Dotarem COMPARISON: 11.19.19 FINDINGS: LOWER THORAX: Esophageal varices. No pleural effusion. LIVER: There are portosystemic shunts suggestive of portal hypertension. Stable 0.72 cm cyst in the posterior segment the right lobe of the liver superiorly. GALLBLADDER AND BILE DUCTS: Unremarkable. No gallstones. No gallbladder distention or wall edema. No intra- or extrahepatic biliary ductal dilation. PANCREAS: Unremarkable. No focal cystic or solid mass. SPLEEN: There is splenomegaly. Multiple splenic varices. ADRENALS: Unremarkable. No nodules. KIDNEYS AND URETERS: There are multiple low signal lesions in both kidneys. These are stable. Some are simple cysts and some appear to be a hemorrhagic cyst. No hydronephrosis. INTRAPERITONEAL SPACE: Unremarkable. No ascites or other fluid collection. No free air. VASCULATURE: Unremarkable. Abdominal aorta is non-dilated. LYMPH NODES: No enlarged lymph nodes. MRI/MRI Abd WITH and W/O Contrast IMPRESSION: 1. Stable cyst in the posterior segment the right lobe. 2. There is splenomegaly. 3. There are portosystemic shunts suggestive of portal hypertension. 4. There are multiple low signal lesions in both kidneys. These are stable. Some are simple cysts and some appear to be a hemorrhagic cyst. Electronically Signed: Tonny Cruz MD at 16:03 [facility] ,
[2021-11-22 12:50] LABS: CREATININE FINGERSTICK < 0.6 mg/dL (0.55-1.02); EGFR FINGERSTICK > 60.0000 mL/min (>60)
== END 2021-11-22 23:59 | disposition home or self-care (01) ==
LOC: MRI 12:27
PROVIDERS: PCP Family Medicine Geriatric Medicine; Referring Provider Internal Medicine Gastroenterology; Visit Provider Internal Medicine Gastroenterology
DX: K74.60 Unspecified cirrhosis of liver (principal)
CPT/HCPCS: 74183; A9575; A4216

== ENCOUNTER → 2022-02-14 | Outpatient (CLI) | payer OTHER, SELFPAY ==
[2022-02-14 10:23] LABS: Absolute Lymphocyte Count 1.06 X10^3/uL (0.83-4.51); Absolute Neutrophil Count 3.1 X10^3/uL (2.0-7.7); Basophil# 0.01 X10^3/uL; Basophil% 0.2 % (0-1); Eosinophil# 0.08 X10^3/uL; Eosinophils% 1.7 % (0-5); Hemoglobin 14.6 g/dL (12.0-15.0); Lymphocyte # 1.06 X10^3/ul (0.83-4.51); Lymphocyte % 22.7 % (19-41); Mean Corp Hgb Conc 32.4 g/dL (32-36); Mean Corpuscular Hgb 30.9 pg (27.0-32.0); Mean Corpuscular Volume 95.3 fL (81-99); Mean Platelet Vol. 10.8 fl (6.2-12.0); Monocyte% 8.6 % (0-10); NRBC Flagged by Analyzer 0 % (0-5); Neutrophil # 3.08 X10^3/uL (2.7-7.7); Neutrophil % 65.9 % (47-70); POSITIVE COUNT YES; Platelet Count 81 K/mm3 (150-450); RBC Distribution Width CV 13.8 % (11.6-14.6); RBC Distribution Width SD 48.6 fl (35.1-43.9); Red Blood Count 4.72 M/mm3 (4.2-5.4); White Blood Count 4.7 K/mm3 (4.4-11.0)
[2022-02-14 10:43] LABS: ALB/GLOB Ratio 1.2 RATIO (0.9-2.4); AST(SGOT) 45 U/L (15-37); Alanine Aminotransfer ALT/SGPT 68 U/L (13-56); Albumin, Serum 3.1 g/dL (3.2-5.0); Alkaline Phosphatase 112 U/L (45-117); Anion Gap 5 (5-15); BUN 13 mg/dL (7-18); BUN/Creat Ratio 28.5 RATIO (10-20); Bilirubin, Direct 0.24 mg/dL (0.00-0.30); Calcium,Total 8.7 mg/dL (8.5-10.1); Chloride 108 mmol/L (98-107); Creatinine, Serum 0.46 mg/dL (0.55-1.02); EST Glomerular Filtration Rate 147 mL/min (>60); Est Glom Filt Rate - Afr Amer 178 mL/min (>60); Globulin 2.5 g/dL (2.2-4.2); Glucose 92 mg/dL (74-106); Potassium 3.9 mmol/L (3.5-5.1); Protein, Total 5.6 g/dL (6.4-8.2); Sodium Level 141 mmol/L (136-145)
[2022-02-15 08:38] LABS: Immunoglobulin G 348 mg/dL (586-1602)
== END | disposition home or self-care (01) ==
PROVIDERS: PCP Family Medicine Geriatric Medicine; Referring Provider Allergy & Immunology; Visit Provider Allergy & Immunology
DX: D83.9 Common variable immunodeficiency, unspecified (principal)
CPT/HCPCS: 36415; 80053; 82248; 82784; 85025

== ENCOUNTER → 2022-03-22 | Outpatient (CLI) | payer OTHER, SELFPAY ==
--- NOTE | 2022-03-22 14:19 | RAD_ITS ---
STUDY: X-RAY CHEST REASON FOR EXAM: Female, 61 years old. COUGH TECHNIQUE: PA and lateral views of the chest. COMPARISON: Comparison is made with prior study dated 10/06/2021. FINDINGS: There is hyperinflation of the lungs consistent with chronic obstructive lung disease (COPD). Stable mild increased linear markings at the lung bases suggestive of scarring. There is no demonstrated pleural abnormality. Normal size heart. Normal mediastinum and mikala. Normal visualized pulmonary arteries. There is atherosclerotic calcification of the aortic arch with tortuosity. There are diffuse degenerative changes of the visualized thoracic spine. Normal visualized ribs, clavicles, and shoulders. There is no demonstrated abnormality of the visualized soft tissue structures of the upper abdomen. RAD/Chest PA and Lateral IMPRESSION: Hyperinflation. Stable mild increased linear markings at the lung bases suggestive of scarring. Electronically Signed: Edgardo George MD at 14:41 EDT ,
== END | disposition home or self-care (01) ==
LOC: MTRAD 14:18
PROVIDERS: PCP Family Medicine Geriatric Medicine; Referring Provider Allergy & Immunology; Visit Provider Allergy & Immunology
DX: R05.9 Cough, unspecified (principal)
CPT/HCPCS: 71046

== ENCOUNTER → 2022-06-03 | Outpatient (CLI) | payer OTHER, SELFPAY ==
[2022-06-03 14:24] LABS: Bacteria 0 SEEN /hpf (None Seen); Mucous, Urine 0 SEEN /hpf (<or=2+); Red Blood Cells-Urine 0 SEEN /hpf (0-5)
[2022-06-03 14:31] LABS: Color, Urine Yellow (Yellow); Glucose, Dipstick Normal (Normal); Ketone-Dipstick Negative (Negative); Leukocyte Esterase-Dipstick 500 /ul (Negative); Nitrite-Dipstick Negative (Negative); Occult Blood-Urine 25 /ul (Negative); Protein-Dipstick 15 mg/dl (Negative); Urine Bilirubin Dipstick Negative (Negative); Urine Clarity Sl. Cloudy (Clear); Urine Urobilinogen Normal (Normal); Urine pH 6.5 (5.0 - 8.0)
[2022-06-03 14:36] LABS: Squamous Epithelial Cells - UA 0-5 SEEN /hpf (5-10); White Blood Cells 25-50 SEEN /hpf (0-5)
== END | disposition home or self-care (01) ==
PROVIDERS: PCP Family Medicine Geriatric Medicine; Referring Provider Physician Assistant Surgical; Visit Provider Physician Assistant Surgical
DX: R30.9 Painful micturition, unspecified (principal)
CPT/HCPCS: 81001; 87086; 87088; 87186

== ENCOUNTER → 2022-06-22 | Outpatient (CLI) | payer OTHER, SELFPAY | END | disposition home or self-care (01) | LOC: PSN 13:20 | PROVIDERS: PCP Family Medicine Geriatric Medicine; Referring Provider Family Medicine Geriatric Medicine; Visit Provider Family Medicine Geriatric Medicine | DX: R68.83 Chills (without fever) (principal) | CPT/HCPCS: 87635; 87804; 87807; C9803; U0003; U0005 ==

== ENCOUNTER → 2022-10-04 | Outpatient (CLI) | payer OTHER, SELFPAY ==
[2022-10-04 15:36] LABS: Absolute Lymphocyte Count 1.69 X10^3/uL (0.83-4.51); Absolute Neutrophil Count 2.6 X10^3/uL (2.0-7.7); Basophil# 0.02 X10^3/uL; Basophil% 0.4 % (0-1); Eosinophil# 0.12 X10^3/uL; Eosinophils% 2.5 % (0-5); Hematocrit 46.2 % (37-47); Hemoglobin 15.1 g/dL (12.0-15.0); Lymphocyte # 1.69 X10^3/ul (0.83-4.51); Lymphocyte % 34.6 % (19-41); Mean Corp Hgb Conc 32.7 g/dL (32-36); Mean Corpuscular Hgb 30.2 pg (27.0-32.0); Mean Corpuscular Volume 92.4 fL (81-99); Mean Platelet Vol. 11.5 fl (6.2-12.0); Monocyte# 0.47 X10^3/uL; Monocyte% 9.6 % (0-10); NRBC Flagged by Analyzer 0 % (0-5); Neutrophil # 2.58 X10^3/uL (2.7-7.7); Neutrophil % 52.7 % (47-70); Platelet Count 106 K/mm3 (150-450); RBC Distribution Width CV 14.2 % (11.6-14.6); RBC Distribution Width SD 48.1 fl (35.1-43.9); White Blood Count 4.9 K/mm3 (4.4-11.0)
[2022-10-04 15:49] LABS: Vitamin D,25 Hydroxy 36.9 ng/mL
[2022-10-04 16:05] LABS: ALB/GLOB Ratio 1.1 RATIO (0.9-2.4); AST(SGOT) 69 U/L (15-37); Alanine Aminotransfer ALT/SGPT 70 U/L (13-56); Albumin, Serum 3.1 g/dL (3.2-5.0); Alkaline Phosphatase 198 U/L (45-117); Anion Gap 7 (5-15); BUN 12 mg/dL (7-18); BUN/Creat Ratio 22.8 RATIO (10-20); Calcium,Total 8.9 mg/dL (8.5-10.1); Chloride 109 mmol/L (98-107); Creatinine, Serum 0.53 mg/dL (0.55-1.02); EST Glomerular Filtration Rate 125 mL/min (>60); Est Glom Filt Rate - Afr Amer 151 mL/min (>60); Globulin 2.9 g/dL (2.2-4.2); Glucose 101 mg/dL (74-106); Sodium Level 141 mmol/L (136-145); Thyroid Stim Hormone (TSH) 1.97 uIU/mL (0.358-3.74)
== END | disposition home or self-care (01) ==
LOC: POLAB3 14:32
PROVIDERS: PCP Family Medicine Geriatric Medicine; Visit Provider Family Medicine Geriatric Medicine
DX: E55.9 Vitamin D deficiency, unspecified (principal); R53.83 Other fatigue
CPT/HCPCS: 36415; 80053; 82306; 84443; 85025

== ENCOUNTER → 2022-11-02 | Outpatient (CLI) | payer OTHER, SELFPAY ==
--- NOTE | 2022-11-02 09:53 | BI_ITS ---
MAMMOGRAPHY - BILATERAL SCREENING REASON FOR EXAM: Female, 62 years old. Routine annual screening examination. PERTINENT HISTORY: Mother with breast cancer. Aunt with breast cancer. TECHNIQUE: Digital bilateral breast rafael (3D mammographic acquisition) in the CC and MLO projections. 2-D mediolateral oblique (MLO) and craniocaudad (CC) views of both breasts were obtained. CAD: Full Field Digital Mammography with Computer Added Detection was performed. COMPARISON: Comparison is made with prior study dated 10/26/2021 and 08/18/2019. FINDINGS: Breast Composition: The breasts are extremely dense, which lowers the sensitivity of mammography. There are no dominant masses or suspicious calcifications. No other significant abnormalities are identified. There has been no significant change since the prior study. BI/SCRN MAMM (CAD)W/RAFAEL BILAT IMPRESSION: Stable bilateral screening mammogram. Yearly follow-up mammogram recommended. (A) ASSESSMENT CATEGORY: BIRADS Category 1: Negative. A letter regarding these results will be sent to the patient by the facility within 30 days. Approximately 10% of breast cancers are not detected by mammography. A normal mammogram should not delay biopsy of a clinically suspicious abnormality. [id number] Electronically Signed: Edgardo George MD at 11:58 EST ,
== END | disposition home or self-care (01) ==
LOC: OPBI 09:49
PROVIDERS: PCP Family Medicine Geriatric Medicine; Visit Provider Family Medicine Geriatric Medicine
DX: Z12.31 Encounter for screening mammogram for malignant neoplasm of breast (principal)
CPT/HCPCS: 77063; 77067

== ENCOUNTER → 2023-05-15 | Outpatient (CLI) | payer OTHER, SELFPAY | END | disposition home or self-care (01) | LOC: LABSPEC 15:16 | PROVIDERS: PCP Family Medicine Geriatric Medicine; Referring Provider Physician Assistant; Visit Provider Physician Assistant | DX: R30.0 Dysuria (principal) | CPT/HCPCS: 87086; 87088; 87186 ==

== ENCOUNTER → 2023-08-30 | Outpatient (CLI) | payer OTHER, SELFPAY | END | disposition home or self-care (01) | PROVIDERS: PCP Family Medicine Geriatric Medicine; Referring Provider Family Medicine Geriatric Medicine; Visit Provider Family Medicine Geriatric Medicine | DX: R68.83 Chills (without fever) (principal) | CPT/HCPCS: 87635; 87804; 87807 ==

== ENCOUNTER → 2023-10-10 | Outpatient (CLI) | payer OTHER, SELFPAY ==
[2023-10-10 14:35] LABS: Absolute Lymphocyte Count 1.54 X10^3/uL (0.83-4.51); Absolute Neutrophil Count 3.2 X10^3/uL (2.0-7.7); Basophil# 0.02 X10^3/uL; Basophil% 0.4 % (0-1); Eosinophil# 0.08 X10^3/uL; Eosinophils% 1.5 % (0-5); Hematocrit 47.3 % (37-47); Hemoglobin 14.8 g/dL (12.0-15.0); Lymphocyte # 1.54 X10^3/ul (0.83-4.51); Lymphocyte % 29.4 % (19-41); Mean Corp Hgb Conc 31.3 g/dL (32-36); Mean Corpuscular Hgb 29.3 pg (27.0-32.0); Mean Corpuscular Volume 93.7 fL (81-99); Mean Platelet Vol. 11.3 fl (6.2-12.0); Monocyte# 0.41 X10^3/uL; Monocyte% 7.8 % (0-10); NRBC Flagged by Analyzer 0 % (0-5); Neutrophil # 3.16 X10^3/uL (2.7-7.7); Neutrophil % 60.5 % (47-70); POSITIVE COUNT YES; Platelet Count 90 K/mm3 (150-450); RBC Distribution Width CV 16.6 % (11.6-14.6); RBC Distribution Width SD 56.7 fl (35.1-43.9); Red Blood Count 5.05 M/mm3 (4.2-5.4); White Blood Count 5.2 K/mm3 (4.4-11.0)
[2023-10-10 14:56] LABS: ALB/GLOB Ratio 0.9 RATIO (0.9-2.4); AST(SGOT) 48 U/L (15-37); Alanine Aminotransfer ALT/SGPT 42 U/L (13-56); Albumin, Serum 2.9 g/dL (3.2-5.0); Alkaline Phosphatase 136 U/L (45-117); Anion Gap 5 (5-15); BUN 10 mg/dL (7-18); BUN/Creat Ratio 21.3 RATIO (10-20); Calcium,Total 8.6 mg/dL (8.5-10.1); Chloride 107 mmol/L (98-107); Creatinine, Serum 0.47 mg/dL (0.55-1.02); EST Glomerular Filtration Rate 142 mL/min (>60); Est Glom Filt Rate - Afr Amer 171 mL/min (>60); Globulin 3.1 g/dL (2.2-4.2); Glucose 86 mg/dL (74-106); Potassium 3.5 mmol/L (3.5-5.1); Sodium Level 139 mmol/L (136-145); Thyroid Stim Hormone (TSH) 1.82 uIU/mL (0.358-3.74)
== END | disposition home or self-care (01) ==
LOC: POLAB3 13:00
PROVIDERS: PCP Family Medicine Geriatric Medicine; Visit Provider Family Medicine Geriatric Medicine
DX: R53.83 Other fatigue (principal)
CPT/HCPCS: 36415; 80053; 84443; 85025

== ENCOUNTER → 2023-11-06 | Outpatient (CLI) | payer OTHER, SELFPAY ==
--- NOTE | 2023-11-06 09:53 | BI_ITS ---
MAMMOGRAPHY - BILATERAL SCREENING REASON FOR EXAM: Female, 63 years old. Routine annual screening examination. PERTINENT HISTORY: Mother with breast cancer. Aunt with breast cancer. TECHNIQUE: Digital bilateral breast rafael (3D mammographic acquisition) in the CC and MLO projections. 2-D mediolateral oblique (MLO) and craniocaudad (CC) views of both breasts were obtained. CAD: Full Field Digital Mammography with Computer Added Detection was performed. COMPARISON: Comparison is made with prior study dated November 02, 2022 and October 26, 2021. FINDINGS: Breast Composition: The breasts are extremely dense, which lowers the sensitivity of mammography. There are no dominant masses or suspicious calcifications. No other significant abnormalities are identified. There has been no significant change since the prior study. BI/SCRN MAMM (CAD)W/RAFAEL BILAT IMPRESSION: Stable bilateral screening mammogram. Yearly follow-up mammogram recommended. (A) ASSESSMENT CATEGORY: BIRADS Category 1: Negative. A letter regarding these results will be sent to the patient by the facility within 30 days. Approximately 10% of breast cancers are not detected by mammography. A normal mammogram should not delay biopsy of a clinically suspicious abnormality. [id number] Electronically Signed: Edgardo George MD at 11:14 EST ,
== END | disposition home or self-care (01) ==
LOC: OPBI 09:50
PROVIDERS: PCP Family Medicine Geriatric Medicine; Referring Provider Family Medicine Geriatric Medicine; Visit Provider Family Medicine Geriatric Medicine
DX: Z12.31 Encounter for screening mammogram for malignant neoplasm of breast (principal)
CPT/HCPCS: 77063; 77067

== ENCOUNTER → 2023-12-13 | Outpatient (CLI) | payer OTHER, SELFPAY | END | disposition home or self-care (01) | LOC: PSN 11:41 | PROVIDERS: PCP Family Medicine Geriatric Medicine; Referring Provider Family Medicine Geriatric Medicine; Visit Provider Family Medicine Geriatric Medicine | DX: R68.83 Chills (without fever) (principal) | CPT/HCPCS: 87631 ==

== ENCOUNTER → 2023-12-25 | Outpatient (CLI) | payer OTHER, SELFPAY ==
[2023-12-25 12:56] LABS: Absolute Lymphocyte Count 1.15 X10^3/uL (0.83-4.51); Absolute Neutrophil Count 1.8 X10^3/uL (2.0-7.7); Basophil# 0.01 X10^3/uL; Basophil% 0.3 % (0-1); Eosinophil# 0.05 X10^3/uL; Eosinophils% 1.5 % (0-5); Hematocrit 44.1 % (37-47); Hemoglobin 14.2 g/dL (12.0-15.0); Lymphocyte # 1.15 X10^3/ul (0.83-4.51); Lymphocyte % 35.3 % (19-41); Mean Corp Hgb Conc 32.2 g/dL (32-36); Mean Corpuscular Hgb 30.4 pg (27.0-32.0); Mean Corpuscular Volume 94.4 fL (81-99); Monocyte# 0.24 X10^3/uL; Monocyte% 7.4 % (0-10); NRBC Flagged by Analyzer 0 % (0-5); Neutrophil # 1.81 X10^3/uL (2.7-7.7); Neutrophil % 55.5 % (47-70); POSITIVE COUNT YES; Platelet Count 73 K/mm3 (150-450); RBC Distribution Width CV 14.5 % (11.6-14.6); RBC Distribution Width SD 49.5 fl (35.1-43.9); Red Blood Count 4.67 M/mm3 (4.2-5.4); White Blood Count 3.3 K/mm3 (4.4-11.0)
[2023-12-25 15:08] LABS: ALB/GLOB Ratio 0.9 RATIO (0.9-2.4); AST(SGOT) 60 U/L (15-37); Alanine Aminotransfer ALT/SGPT 58 U/L (13-56); Albumin, Serum 2.7 g/dL (3.2-5.0); Alkaline Phosphatase 144 U/L (45-117); Anion Gap 6 (5-15); BUN 12 mg/dL (7-18); BUN/Creat Ratio 25.6 RATIO (10-20); Calcium,Total 8.6 mg/dL (8.5-10.1); Chloride 110 mmol/L (98-107); Creatinine, Serum 0.47 mg/dL (0.55-1.02); EST Glomerular Filtration Rate 142 mL/min (>60); Est Glom Filt Rate - Afr Amer 172 mL/min (>60); Glucose 110 mg/dL (74-106); Protein, Total 5.7 g/dL (6.4-8.2); Sodium Level 139 mmol/L (136-145)
[2023-12-26 04:07] LABS: Immunoglobulin A < 5 mg/dL (87-352); Immunoglobulin G 1031 mg/dL (586-1602); Immunoglobulin M 29 mg/dL (26-217)
== END | disposition home or self-care (01) ==
LOC: MTLAB 09:25
PROVIDERS: PCP Family Medicine Geriatric Medicine; Referring Provider Allergy & Immunology; Visit Provider Allergy & Immunology
DX: D83.9 Common variable immunodeficiency, unspecified (principal)
CPT/HCPCS: 36415; 80053; 82784; 85025

== ENCOUNTER → 2024-10-15 | Outpatient (CLI) | payer OTHER, SELFPAY ==
[2024-10-15 12:24] LABS: International Normalized Ratio 1.1; Prothrombin Time (Protime)PT. 14.1 SECONDS (11.7-14.9)
[2024-10-15 12:25] LABS: Partial Thromboplast Time 26.1 Seconds (24.1-36.2)
[2024-10-15 12:27] LABS: Absolute Lymphocyte Count 0.91 X10^3/uL (0.83-4.51); Absolute Neutrophil Count 2.7 X10^3/uL (2.0-7.7); Basophil# 0.02 X10^3/uL; Basophil% 0.5 % (0-1); Eosinophils% 2.4 % (0-5); Erythrocyte Sedimentation Rate 1 mm/hr (0-30); Hematocrit 45.5 % (37-47); Hemoglobin 14.3 g/dL (12.0-15.0); Lymphocyte # 0.91 X10^3/ul (0.83-4.51); Lymphocyte % 22.1 % (19-41); Mean Corp Hgb Conc 31.4 g/dL (32-36); Mean Corpuscular Hgb 29.4 pg (27.0-32.0); Mean Corpuscular Volume 93.6 fL (81-99); Mean Platelet Vol. 11.2 fl (6.2-12.0); Monocyte# 0.38 X10^3/uL; Monocyte% 9.2 % (0-10); NRBC Flagged by Analyzer 0 % (0-5); Neutrophil # 2.69 X10^3/uL (2.7-7.7); Neutrophil % 65.3 % (47-70); POSITIVE COUNT YES; Platelet Count 80 K/mm3 (150-450); RBC Distribution Width CV 14.9 % (11.6-14.6); RBC Distribution Width SD 51.3 fl (35.1-43.9); Red Blood Count 4.86 M/mm3 (4.2-5.4); White Blood Count 4.1 K/mm3 (4.4-11.0)
[2024-10-15 15:40] LABS: AST(SGOT) 55 U/L (15-37); Alanine Aminotransfer ALT/SGPT 46 U/L (13-56); Albumin, Serum 2.8 g/dL (3.2-5.0); Alkaline Phosphatase 154 U/L (45-117); Anion Gap 7 (5-15); BUN 9 mg/dL (7-18); Bilirubin, Direct 0.51 mg/dL (0.00-0.30); CRP 5.07 mg/L (0.0-3.0); Calcium,Total 8.9 mg/dL (8.5-10.1); Chloride 106 mmol/L (98-107); Creatinine, Serum 0.53 mg/dL (0.55-1.02); EST Glomerular Filtration Rate 123 mL/min (>60); Est Glom Filt Rate - Afr Amer 149 mL/min (>60); Globulin 2.9 g/dL (2.2-4.2); Glucose 120 mg/dL (74-106); Potassium 3.9 mmol/L (3.5-5.1); Protein, Total 5.7 g/dL (6.4-8.2); Sodium Level 139 mmol/L (136-145)
[2024-10-17 09:07] LABS: Immunoglobulin G 1006 mg/dL (586-1602)
== END | disposition home or self-care (01) ==
PROVIDERS: PCP Family Medicine Geriatric Medicine; Referring Provider Allergy & Immunology; Visit Provider Allergy & Immunology
DX: D83.9 Common variable immunodeficiency, unspecified (principal); J45.41 Moderate persistent asthma with (acute) exacerbation; M25.50 Pain in unspecified joint; Z79.899 Other long term (current) drug therapy
CPT/HCPCS: 36415; 80048; 80076; 82784; 85025; 85610; 85652; 85730; 86140; 94060; 94726; 94729

== ENCOUNTER → 2024-10-29 | Outpatient (CLI) | payer SELFPAY ==
[2024-10-29 15:08] LABS: SERUM TEARS COLLECTION SPECIMEN PROCESSED
== END | disposition home or self-care (01) ==
PROVIDERS: PCP Family Medicine Geriatric Medicine; Visit Provider Ophthalmology
DX: M35.01 Sjogren syndrome with keratoconjunctivitis (principal); H16.143 Punctate keratitis, bilateral; H16.12 Filamentary keratitis

== ENCOUNTER 2024-11-08 19:20 | Inpatient (IN) | payer OTHER, MEDICARE, SELFPAY ==
[2024-11-08] VITALS (10 sets, daily range): BP systolic 106–153; BP diastolic 45–81; PULSE 83–105; RESP 18–25; TEMP 36.3–36.9; O2SAT 90–94; BMI 37.2; BMI 35.6
--- NOTE | 2024-11-08 19:32 | EKG12_ITS ---
Test Reason : DYSRHYTHMIA Blood Pressure : */* mmHG Vent. Rate : 97 BPM Atrial Rate : 97 BPM P-R Int : 174 ms QRS Dur : 96 ms QT Int : 344 ms P-R-T Axes : 74 59 72 degrees QTcB Int : 436 ms Normal sinus rhythm Normal ECG Confirmed by Kris Evans ([id number]), food expeditor DEEPTI BENITO ([id number]) on 11/10/2024 10:12:15 AM Referred By: Confirmed By: Kris Evans
--- NOTE | 2024-11-08 19:39 | ED.VIS.DYS ---
HPI <RAISSA Graves - Last Filed: 11/08/24 21:55> History of Present Illness Chief Complaint: Shortness of Breath Narrative Narrative: 64-year-old female with past medical history of chronic immunodeficiency on weekly IVIG, asthma, primary biliary cirrhosis presents with about 3 days of fatigue and productive cough. She states today around 4:30 PM the cough became worse and she started feeling short of breath. Her daughter states she was breathing more heavily and brought her in for evaluation. She uses multiple inhalers and Singulair at home but does not wear oxygen. She does not smoke. She has chills but no fever. She has had decreased oral intake but no vomiting or diarrhea. [facility] <RAISSA Graves - Last Filed: 11/08/24 21:55> [facility] Medical History Contact with and (suspected) exposure to other viral communicable diseases Cough Urinary tract infection Mixed connective tissue disease History of non-ST elevation myocardial infarction (NSTEMI) (10/06/21) COVID-19 virus detected (09/06/21) Leukopenia Thrombocytopenia Liver cirrhosis DVT (deep venous thrombosis) Cirrhosis of liver Portal hypertension Asthma Home Medications ?Medication ?Instructions ?Recorded ?Last Taken ?Type carvedilol 3.125 mg tablet 3.125 mg PO BID 09/08/21 10/17/21 History furosemide 20 mg tablet 20 mg PO DAILY PRN swelling 09/08/21 Unknown History montelukast 10 mg tablet 10 mg PO DAILY 09/08/21 10/05/21 History (Singulair) spironolactone 100 mg tablet 100 mg PO DAILY 09/08/21 10/05/21 History ursodiol 500 mg tablet 500 mg PO TID 09/08/21 10/06/21 12:00 History albuterol sulfate 90 mcg/actuation 2 puff inhalation Q6H PRN 10/13/21 Unknown History aerosol inhaler Shortness Of Breath cholecalciferol (vitamin D3) 25 25 mcg PO DAILY 10/13/21 Unknown History mcg (1,000 unit) capsule fluticasone 250 mcg-salmeterol 50 1 inh inhalation BID 10/13/21 10/17/21 History mcg/dose blistr powdr for inhalation (Advair Diskus) hydroxychloroquine 100 mg tablet 150 mg PO BID 10/13/21 Unknown History immune glob G 1 gram/5 mL(20 5 ml subcut QWEEK 10/13/21 Unknown History %)-prol-IgA 0-50 mcg/mL subcutaneous soln (Hizentra) levofloxacin 500 mg tablet 500 mg PO DAILY #7 tabs 05/15/23 Unknown Rx methylprednisolone 4 mg tablets in See Rx Instructions PO PER PKG DIR 05/15/23 Unknown Rx a dose pack (Medrol (Johan)) #21 tabs tiotropium bromide 1.25 inhalation DAILY 11/08/24 Unknown History mcg/actuation mist for inhalation (Spiriva Respimat) Allergy/AdvReac Type Severity Reaction Status Date / Time No Known Allergies Allergy Verified 11/08/24 19:23 Family History (Updated 11/08/24 @ 22:[address] Alena Mendoza MD) Mother Cancer Breast and sinonasal cancer Diabetes Father Prostate cancer Dementia Autoimmune disorder Other Depression Hypertension Surgical History History of left heart catheterization (10/17/21) History of delivery History of ankle surgery Social History (Updated 11/08/24 @ 22:[address] Alena Mendoza MD) household members: spouse Smoking Status: Former smoker alcohol intake: never substance use type: does not use ROS <RAISSA Graves - Last Filed: 11/08/24 21:55> ROS ED ROS Narrative Constitutional: Negative for fever. Positive for chills, malaise. CVS: Negative for chest pain, syncope. Respiratory: Positive for shortness of breath, cough. GI: Negative for abdominal pain, nausea, vomiting, diarrhea. EXAM <RAISSA Graves - Last Filed: 11/08/24 21:55> Physical Exam Narrative Exam Narrative: CONST: Patient sitting in no acute distress. EYES: Normal inspection. NECK: Normal inspection. RESP: Mild respiratory distress and tachypnea, expiratory wheezing throughout and crackles in right lung base. CVS: Regular rate and rhythm, no murmur, no gallop. ABD: Soft and nontender, no guarding or rebound, nondistended. SKIN: Color normal, no rash, warm, dry, intact. EXTREMITIES: Normal appearance, no pedal edema. NEURO: Alert and answering questions appropriately. PSYCH: Normal affect. Const Vital Signs: 11/08/24 19:20 11/08/24 19:23 11/08/24 19:32 Temperature 98.4 F 98.4 F Temperature Source Oral Oral Pulse Rate 98 105 H Respiratory Rate 22 H 25 H Respiratory Effort Short of Breath Respiratory Depth Deep Respiratory Pattern Tachypnea Blood Pressure 153/60 H 138/70 H Blood Pressure Mean 91 92 Pulse Ox 90 93 Oxygen Delivery Method Room Air Nasal Cannula Nasal Cannula Oxygen Flow Rate (L/min) 1.5 1.5 11/08/24 19:40 11/08/24 20:21 11/08/24 20:34 Temperature 98.4 F Temperature Source Oral Pulse Rate 103 H 92 96 Respiratory Rate 22 H 21 H 18 Respiratory Effort Respiratory Depth Respiratory Pattern Tachypnea Normal Blood Pressure 121/46 H Blood Pressure Mean 71 Pulse Ox 93 Oxygen Delivery Method Nasal Cannula Oxygen Flow Rate (L/min) 1.5 11/08/24 21:00 11/08/24 21:47 11/08/24 22:00 Temperature 98.0 F 98.0 F 98.0 F Temperature Source Oral Oral Pulse Rate 95 90 85 Respiratory Rate 18 22 H 18 Respiratory Effort Respiratory Depth Respiratory Pattern Blood Pressure 108/45 L 106/51 L 107/46 L Blood Pressure Mean 66 69 66 Pulse Ox 91 93 92 Oxygen Delivery Method Nasal Cannula Nasal Cannula Oxygen Flow Rate (L/min) 1.5 1.5 <Dr. Tian Mata, DO - Last Filed: 11/09/24 00:19> Physical Exam Const Vital Signs: 11/08/24 19:20 11/08/24 19:23 11/08/24 19:32 Temperature 98.4 F 98.4 F Temperature Source Oral Oral Pulse Rate 98 105 H Respiratory Rate 22 H 25 H Respiratory Effort Short of Breath Respiratory Depth Deep Respiratory Pattern Tachypnea Blood Pressure 153/60 H 138/70 H Blood Pressure Mean 91 92 Pulse Ox 90 93 Oxygen Delivery Method Room Air Nasal Cannula Nasal Cannula Oxygen Flow Rate (L/min) 1.5 1.5 11/08/24 19:40 11/08/24 20:21 11/08/24 20:34 Temperature 98.4 F Temperature Source Oral Pulse Rate 103 H 92 96 Respiratory Rate 22 H 21 H 18 Respiratory Effort Respiratory Depth Respiratory Pattern Tachypnea Normal Blood Pressure 121/46 H Blood Pressure Mean 71 Pulse Ox 93 Oxygen Delivery Method Nasal Cannula Oxygen Flow Rate (L/min) 1.5 11/08/24 21:00 11/08/24 21:47 11/08/24 22:00 Temperature 98.0 F 98.0 F 98.0 F Temperature Source Oral Oral Pulse Rate 95 90 85 Respiratory Rate 18 22 H 18 Respiratory Effort Respiratory Depth Respiratory Pattern Blood Pressure 108/45 L 106/51 L 107/46 L Blood Pressure Mean 66 69 66 Pulse Ox 91 93 92 Oxygen Delivery Method Nasal Cannula Nasal Cannula Oxygen Flow Rate (L/min) 1.5 1.5 MDM <RAISSA Graves - Last Filed: 11/08/24 21:55> [facility] MDM Narrative Medical decision making narrative: History gathered from: Patient and daughter Differential includes but not limited to viral illness, pneumonia, ACS 64 year old female with asthma, chronic immunodeficiency on IVIG presents with 3 days of fatigue and upper respiratory symptoms. Today she developed wheezing and shortness of breath. She was 89% on room air and tachypneic and had expiratory wheezing throughout so she was placed on 2 L nasal cannula. I ordered DuoNebs and IV Solu-Medrol. Labs show white count of 4.2, otherwise normal. Chemistry is unremarkable. EKG is nonischemic and troponin is 28. CXR negative. Viral swab is positive for influenza A. Patient requires admission since she has hypoxia secondary to influenza A and asthma flare. I discussed the case with the hospitalist. Lab Data Attestation: I reviewed the patient's lab results. Labs: Laboratory Results - last 24 hr 11/08/24 19:42 WBC 4.2 L RBC 4.87 Hgb 14.4 Hct 44.7 MCV 91.8 MCH 29.6 MCHC 32.2 RDW Std Deviation 50.4 H RDW Coeff of Kiya 14.9 H Plt Count 57 L MPV 10.7 Immature Gran % (Auto) 0.500 Neut % (Auto) 66.6 Lymph % (Auto) 21.4 [place] % (Auto) 10.8 H Eos % (Auto) 0.2 Baso % (Auto) 0.5 Absolute Neuts (auto) 2.8 Absolute Lymphs (auto) 0.89 Nucleated RBC % 0 Sodium 137 Potassium 4.2 Chloride 106 Carbon Dioxide 25.0 Anion Gap 6 BUN 9 Creatinine 0.43 L Estim Creat Clear Calc 82.75 Est GFR (MDRD) Af Amer 190 Est GFR (MDRD) Non-Af 157 BUN/Creatinine Ratio 21.0 H Glucose 91 Calcium 8.4 L Troponin I High Sens 28 Radiography Diagnostic Testing: Clinical Impression(s) from Imaging Studies Chest X-Ray 11/08/24 20:02 IMPRESSION: No acute airspace abnormality. Probable bibasilar scarring/atelectasis. Reading Location: [facility] <Dr. Tian Mata, DO - Last Filed: 11/09/24 00:19> [facility] MDM Narrative Medical decision making narrative: History gathered from: Patient and daughter Differential includes but not limited to viral illness, pneumonia, ACS 64 year old female with asthma, chronic immunodeficiency on IVIG presents with 3 days of fatigue and upper respiratory symptoms. Today she developed wheezing and shortness of breath. She was 89% on room air and tachypneic and had expiratory wheezing throughout so she was placed on 2 L nasal cannula. I ordered DuoNebs and IV Solu-Medrol. Labs show white count of 4.2, otherwise normal. Chemistry is unremarkable. EKG is nonischemic and troponin is 28. CXR negative. Viral swab is positive for influenza A. Patient requires admission since she has hypoxia secondary to influenza A and asthma flare. I discussed the case with the hospitalist. ED attending note: I evaluated the patient in conjunction with the AARON. I agree with his/her statements and above findings. I have personally performed a face to face assessment of the patient and have reviewed the AARON Note. I performed a substantive portion of the visit including all aspects of the following. I personally saw the patient performed chart review, physical exam, reviewed labs, imaging (if obtained), and formulated a treatment and management plan. This note was generated with [employer] dictation software. It may contain incorrect words, spelling, and punctuation that were not noted in review of the chart prior to signing. Lab Data Labs: Laboratory Results - last 24 hr 11/08/24 19:42 WBC 4.2 L RBC 4.87 Hgb 14.4 Hct 44.7 MCV 91.8 MCH 29.6 MCHC 32.2 RDW Std Deviation 50.4 H RDW Coeff of Kiya 14.9 H Plt Count 57 L MPV 10.7 Immature Gran % (Auto) 0.500 Neut % (Auto) 66.6 Lymph % (Auto) 21.4 [place] % (Auto) 10.8 H Eos % (Auto) 0.2 Baso % (Auto) 0.5 Absolute Neuts (auto) 2.8 Absolute Lymphs (auto) 0.89 Nucleated RBC % 0 Sodium 137 Potassium 4.2 Chloride 106 Carbon Dioxide 25.0 Anion Gap 6 BUN 9 Creatinine 0.43 L Estim Creat Clear Calc 82.75 Est GFR (MDRD) Af Amer 190 Est GFR (MDRD) Non-Af 157 BUN/Creatinine Ratio 21.0 H Glucose 91 Calcium 8.4 L Troponin I High Sens 28 Radiography Diagnostic Testing: Clinical Impression(s) from Imaging Studies Chest X-Ray 11/08/24 20:02 IMPRESSION: No acute airspace abnormality. Probable bibasilar scarring/atelectasis. Reading Location: [facility] Discharge Plan Dx/Rx/DC Orders Clinical Impression: Influenza A, Hypoxia, Asthma exacerbation Disposition Disposition: Acute Care [facility] Discharge Date/Time: 11/08/24 23:01
[2024-11-08] MEDS: Ipratropium/Albuterol Sulfate 3 ML AMPUL.NEB INHALATION ×2 (19:40→20:34)
[2024-11-08] MEDS: MethylPREDNISolone 125 MG/2 ML Vial IV (19:52)
[2024-11-08 19:57] LABS: Absolute Lymphocyte Count 0.89 X10^3/uL (0.83-4.51); Absolute Neutrophil Count 2.8 X10^3/uL (2.0-7.7); Basophil# 0.02 X10^3/uL; Basophil% 0.5 % (0-1); Eosinophil# 0.01 X10^3/uL; Eosinophils% 0.2 % (0-5); Hematocrit 44.7 % (37-47); Hemoglobin 14.4 g/dL (12.0-15.0); Lymphocyte # 0.89 X10^3/ul (0.83-4.51); Lymphocyte % 21.4 % (19-41); Mean Corp Hgb Conc 32.2 g/dL (32-36); Mean Corpuscular Hgb 29.6 pg (27.0-32.0); Mean Corpuscular Volume 91.8 fL (81-99); Mean Platelet Vol. 10.7 fl (6.2-12.0); Monocyte# 0.45 X10^3/uL; Monocyte% 10.8 % (0-10); NRBC Flagged by Analyzer 0 % (0-5); Neutrophil # 2.77 X10^3/uL (2.7-7.7); Neutrophil % 66.6 % (47-70); POSITIVE COUNT YES; Platelet Count 57 K/mm3 (150-450); RBC Distribution Width CV 14.9 % (11.6-14.6); RBC Distribution Width SD 50.4 fl (35.1-43.9); Red Blood Count 4.87 M/mm3 (4.2-5.4); White Blood Count 4.2 K/mm3 (4.4-11.0)
--- NOTE | 2024-11-08 20:02 | RAD_ITS ---
PROCEDURE: Chest radiographs REASON FOR EXAM: Cough TECHNIQUE: Two views of the chest COMPARISON: 03/22/2022 FINDINGS: Cardiomediastinal silhouette is within normal limits. Mild linear bibasilar opacities favoring scarring/atelectasis. No patchy infiltrates, pleural effusion or sizable pneumothorax. RAD/Chest PA and Lateral IMPRESSION: No acute airspace abnormality. Probable bibasilar scarring/atelectasis. Reading Location: [facility]
[2024-11-08 20:12] LABS: Anion Gap 6 (5-15); BUN 9 mg/dL (7-18); Calcium,Total 8.4 mg/dL (8.5-10.1); Chloride 106 mmol/L (98-107); Creatinine, Serum 0.43 mg/dL (0.55-1.02); EST Glomerular Filtration Rate 157 mL/min (>60); Est Glom Filt Rate - Afr Amer 190 mL/min (>60); Estimated Creatinine Clearance 82.75 ml/min; Glucose 91 mg/dL (74-106); Potassium 4.2 mmol/L (3.5-5.1); Sodium Level 137 mmol/L (136-145); Troponin-I HS 28 pg/mL (3.0-54.0)
--- NOTE | 2024-11-08 21:44 | PCM.HP.STD ---
HPI - General General Date of Admission: 11/08/24 Date of Service: 11/08/24 Chief Complaint: Dyspnea, cough, chills, fatigue, poor intake. HPI Narrative The patient is a 64 y/o F w/ PMHx: Chronic liver cirrhosis with associated chronic thrombocytopenia and portal HTN, Chronic neutropenia, Hx VTE (DVT), Mixed connective tissue disease, Former tobacco use who presents to the [facility] ED on 11/08/24 with history of 3 days of increasing fatigue, malaise, dyspnea, productive cough and occasional wheezing worsening at approximately 4:30 PM on day of presentation with reported chills but no specific fever however she has had also decreased oral intake but no emesis or diarrhea but not improving prompting family to bring her in for evaluation. Workup in the ED included T98.4, heart rate 98, BP 153/60, respiratory rate 22, initially 90% on room air however desaturated in the ED to 88% on RA, most recent repeat vitals T98, heart rate 95, BP 108/45, respiratory rate 18, 91% on 1.5 L nasal cannula, CBC with WC 4.2, hemoglobin 14.4, platelet 57 without marked shift, BMP with BUN/creatinine 9/0.43, GFR 157, calcium 8.4 otherwise unremarkable, troponin 28, chest x-ray with no acute airspace abnormality with probable bibasilar scarring/atelectasis noted, rapid SARS COVID/influenza/RSV with positive influenza A. In the ED patient ministered DuoNeb therapy x 2, Tamiflu 75 mg x 1, Solu-Medrol 1.5 mg IV x 1. [facility] Medical History Contact with and (suspected) exposure to other viral communicable diseases Cough Urinary tract infection Mixed connective tissue disease History of non-ST elevation myocardial infarction (NSTEMI) (10/06/21) COVID-19 virus detected (09/06/21) Leukopenia Thrombocytopenia Liver cirrhosis DVT (deep venous thrombosis) Cirrhosis of liver Portal hypertension Asthma Home Medications ?Medication ?Instructions ?Recorded ?Last Taken ?Type carvedilol 3.125 mg tablet 3.125 mg PO BID 09/08/21 10/17/21 History furosemide 20 mg tablet 20 mg PO DAILY PRN swelling 09/08/21 Unknown History montelukast 10 mg tablet 10 mg PO DAILY 09/08/21 10/05/21 History (Singulair) spironolactone 100 mg tablet 100 mg PO DAILY 09/08/21 10/05/21 History ursodiol 500 mg tablet 500 mg PO TID 09/08/21 10/06/21 12:00 History albuterol sulfate 90 mcg/actuation 2 puff inhalation Q6H PRN 10/13/21 Unknown History aerosol inhaler Shortness Of Breath cholecalciferol (vitamin D3) 25 25 mcg PO DAILY 10/13/21 Unknown History mcg (1,000 unit) capsule fluticasone 250 mcg-salmeterol 50 1 inh inhalation BID 10/13/21 10/17/21 History mcg/dose blistr powdr for inhalation (Advair Diskus) hydroxychloroquine 100 mg tablet 150 mg PO BID 10/13/21 Unknown History immune glob G 1 gram/5 mL(20 5 ml subcut QWEEK 10/13/21 Unknown History %)-prol-IgA 0-50 mcg/mL subcutaneous soln (Hizentra) levofloxacin 500 mg tablet 500 mg PO DAILY #7 tabs 05/15/23 Unknown Rx methylprednisolone 4 mg tablets in See Rx Instructions PO PER PKG DIR 05/15/23 Unknown Rx a dose pack (Medrol (Johan)) #21 tabs tiotropium bromide 1.25 inhalation DAILY 11/08/24 Unknown History mcg/actuation mist for inhalation (Spiriva Respimat) Allergy/AdvReac Type Severity Reaction Status Date / Time No Known Allergies Allergy Verified 11/08/24 19:23 Family History (Updated 11/08/24 @ 22:[address] Alena Mendoza MD) Mother Cancer Breast and sinonasal cancer Diabetes Father Prostate cancer Dementia Autoimmune disorder Other Depression Hypertension Surgical History History of left heart catheterization (10/17/21) History of delivery History of ankle surgery Social History (Updated 11/08/24 @ 22:[address] Alena Mendoza MD) household members: spouse Smoking Status: Former smoker alcohol intake: never substance use type: does not use ROS ROS Narrative Admission Review of Systems: CONSTITUTIONAL: No weight loss, fever, + chills, weakness or fatigue. HEENT: + Congestion, rhinorrhea. Eyes: No visual loss, blurred vision, double vision or yellow sclerae. Ears, Nose, Throat: No hearing loss, sneezing. SKIN: No rash or itching, lesions, wounds. CARDIOVASCULAR: No chest pain, chest pressure or chest discomfort, palpitations, edema, orthopnea, syncopal events. RESPIRATORY: + Dyspnea, cough, wheezing. No hemoptysis. GASTROINTESTINAL: + Lack of appetite/anorexia. No nausea, vomiting or diarrhea, abdominal pain, melena, BRBPR. GENITOURINARY: No dysuria, frequency, urgency or retention. NEUROLOGICAL: No headache, dizziness, syncope, paralysis, ataxia, numbness or tingling in the extremities, focal weakness, change in bowel or bladder control, seizure. MUSCULOSKELETAL: + muscle, back pain, joint pain or stiffness. HEMATOLOGIC: No anemia. + Easy bleeding/bruising. LYMPHATICS: No enlarged nodes. No history of splenectomy. + History of immunodeficiency. PSYCHIATRIC: No history of depression or anxiety. ENDOCRINOLOGIC: No reports of sweating, cold or heat intolerance. No polyuria or polydipsia. ALLERGIES: + History of asthma, allergic rhinitis. Vital Signs Vital Signs Vital Signs: 11/08/24 19:20 11/08/24 19:23 11/08/24 19:32 Temperature 98.4 F 98.4 F Temperature Source Oral Oral Pulse Rate 98 105 H Respiratory Rate 22 H 25 H Respiratory Effort Short of Breath Respiratory Depth Deep Respiratory Pattern Tachypnea Blood Pressure 153/60 H 138/70 H Blood Pressure Mean 91 92 Pulse Ox 90 93 Oxygen Delivery Method Room Air Nasal Cannula Nasal Cannula Oxygen Flow Rate (L/min) 1.5 1.5 11/08/24 19:40 11/08/24 20:21 11/08/24 20:34 Temperature 98.4 F Temperature Source Oral Pulse Rate 103 H 92 96 Respiratory Rate 22 H 21 H 18 Respiratory Effort Respiratory Depth Respiratory Pattern Tachypnea Normal Blood Pressure 121/46 H Blood Pressure Mean 71 Pulse Ox 93 Oxygen Delivery Method Nasal Cannula Oxygen Flow Rate (L/min) 1.5 11/08/24 21:00 Temperature 98.0 F Temperature Source Oral Pulse Rate 95 Respiratory Rate 18 Respiratory Effort Respiratory Depth Respiratory Pattern Blood Pressure 108/45 L Blood Pressure Mean 66 Pulse Ox 91 Oxygen Delivery Method Nasal Cannula Oxygen Flow Rate (L/min) 1.5 Weight Weight: 223 lb 9.6 oz Body Mass Index (BMI) 37.2 Physical Exam Narrative Physical Examination: General: Awake, alert, oriented x 3 and cooperative, seated upright in the ED bed, fatigued and mildly ill-appearing. Skin: Normal color, normal turgor, no icterus, no cyanosis except bilateral lower extremity venous stasis skin changes. HEENT: AT/NC, EOMI, PERRLA, moderately dry MM, no carotid bruits or JVD noted. Lungs: Diminished, greater bases, diffuse anterior soft end expiratory wheezes, more significant wheezing posteriorly, no rhonchi or rales, no evidence of any distress. Heart: Regular rate and rhythm; no gallop, rub audible. Abdomen: Soft, obese, NTTP, ND, hyperactive BS, no appreciated HSM. Extremities: No cyanosis, no clubbing, chronic bilateral lower extremity lymphedema, see skin. Neurological: Patient awake, alert, oriented as noted, cognitive function intact; pupils equally reactive to light and accommodation, cranial nerves grossly normal, moving all 4 extremities, no focal deficits, strength moderately to severely globally decreased. Psychiatric: Affect appears flat, fatigued, mildly ill-appearing, no acute evidence of depressive or anxiety feelings. Results Lab / Micro Data 11/08/24 19:42 11/08/24 19:42 Labs: Laboratory Results - last 24 hr 11/08/24 19:42: WBC 4.2 L, RBC 4.87, Hgb 14.4, Hct 44.7, MCV 91.8, MCH 29.6, MCHC 32.2, RDW Std Deviation 50.4 H, RDW Coeff of Kiya 14.9 H, Plt Count 57 L, MPV 10.7, Immature Gran % (Auto) 0.500, Neut % (Auto) 66.6, Lymph % (Auto) 21.4, [place] % (Auto) 10.8 H, Eos % (Auto) 0.2, Baso % (Auto) 0.5, Absolute Neuts (auto) 2.8, Absolute Lymphs (auto) 0.89, Nucleated RBC % 0, Sodium 137, Potassium 4.2, Chloride 106, Carbon Dioxide 25.0, Anion Gap 6, BUN 9, Creatinine 0.43 L, Estim Creat Clear Calc 82.75, Est GFR (MDRD) Af Amer 190, Est GFR (MDRD) Non-Af 157, BUN/Creatinine Ratio 21.0 H, Glucose 91, Calcium 8.4 L, Troponin I High Sens 28 Micro: Microbiology 11/08/24 19:42 Mucosa - Nose SARS-CoV-2, Influenza & RSV (PCR) - Final Influenzae A Imaging Radiology Impression Chest X-Ray 11/08/24 20:02 IMPRESSION: No acute airspace abnormality. Probable bibasilar scarring/atelectasis. Reading Location: [facility] Assessment & Plan Assessment/Plan (1) Asthma exacerbation: (2) Hypoxia: (3) Influenza A: PLAN: Plan The patient is a 64 y/o F w/ PMHx: Chronic liver cirrhosis with associated chronic thrombocytopenia and portal HTN, Chronic neutropenia, Hx VTE (DVT), Mixed connective tissue disease, Former tobacco use who presents to the [facility] ED on 11/08/24 with history of 3 days of increasing fatigue, malaise, dyspnea, productive cough and occasional wheezing worsening at approximately 4:30 PM on day of presentation with reported chills but no specific fever however she has had also decreased oral intake but no emesis or diarrhea but not improving prompting family to bring her in for evaluation. #1. Acute Hypoxia secondary to Acute on Chronic Asthma exacerbation secondary to Acute Influenza A Viral Syndrome: Will admit to [facility], maintain on oxygen with wean as tolerated to room air, continue ATC duonebs, PRN albuterol, IV methylprednisolone, maintain on Tamiflu given symptoms maximum of 3 days now, HOB, IS parameters, will obtain sputum Cx, procalcitonin to be cautious to assure no superimposed bacterial component. #2. Primary biliary cholangitis with chronic liver cirrhosis with associated chronic thrombocytopenia, portal hypertension: Admission CBC with WBC 4.2, hemoglobin 14.4, platelet 57, baseline platelets noted previous primarily 60-90 range, last noted 09/25/2024 platelets 80, will continue to trend. Will continue patient home Coreg, ursodiol, Lasix, spironolactone home regimen. Encourage continued outpatient follow-up with GI as previously arranged. Per previous records that she had previously also been on Ocaliva, clarifiying. #3. Chronic immunodeficiency: Patient on weekly IVIG, encourage continued outpatient follow-up as previously arranged, complicates current presentation. #4. Mixed connective tissue disease: Encourage continued outpatient follow-up as previously arranged, will maintain on hydroxychloroquine home regimen. #5. Allergic rhinitis: Will continue patient home montelukast regimen. #6. History DVT: Not chronically anticoagulated, will maintain on chemoprophylaxis cautiously as noted given chronic thrombocytopenia. #7. DVT prophylaxis: Lovenox very cautiously, monitor CBC and de-escalate as appropriate. #8. CODE status: Patient does not have healthcare power of attorney recruiter or living will in place but she notes her daughter would be her medical decision-maker if necessary. Discussed CODE status at length including difference between FULL code, DNR-CCA and DNR-CC status. Following discussions about the differences in these status, requested Full Code status. Advanced Care Planning Face to Face Time: 16 minutes. Charges/Coding Visit Charges Inpatient E&M: 37652 Init Hosp L3 Procedures Hospitalists Procedures: 80615 Advncd Care Plan 30 Min
[2024-11-08] MEDS: Oseltamivir Phosphate 75 MG Capsule PO (22:21)
[2024-11-08] MEDS: 0.9% Normal Saline (1000mL) 1,000 ML 100 ML IV (23:30)
[2024-11-09] VITALS (9 sets, daily range): BP systolic 110–123; BP diastolic 51–62; PULSE 72–102; RESP 17–22; TEMP 35.8–36.4; O2SAT 86–99; BMI 35.6
[2024-11-09 00:06] LABS: Procalcitonin 0.08 ng/mL (0.00-0.09)
--- NOTE | 2024-11-09 02:40 | NURSING ---
Attempted to ambulate pt on room air to bathroom, pt desaturated to 86% on room air ad mickey. Pt placed back on 2L with sats at 94%.
[2024-11-09] MEDS: guaiFENesin 10 ML UDC (200MG/10ML) 20 ML PO ×3 (02:48→19:47)
[2024-11-09] MEDS: Acetaminophen 325 MG Tablet 650 MG PO (02:48)
[2024-11-09 05:51] LABS: Absolute Lymphocyte Count 0.37 X10^3/uL (0.83-4.51); Absolute Neutrophil Count 2.5 X10^3/uL (2.0-7.7); Hematocrit 42.5 % (37-47); Hemoglobin 13.6 g/dL (12.0-15.0); Lymphocyte # 0.37 X10^3/ul (0.83-4.51); Lymphocyte % 12.3 % (19-41); Mean Corpuscular Hgb 29.4 pg (27.0-32.0); Mean Platelet Vol. 12.1 fl (6.2-12.0); Monocyte# 0.08 X10^3/uL; Monocyte% 2.7 % (0-10); NRBC Flagged by Analyzer 0 % (0-5); Neutrophil # 2.54 X10^3/uL (2.7-7.7); Neutrophil % 84.3 % (47-70); POSITIVE COUNT YES; POSITIVE DIFFERENTIAL YES; Platelet Count 53 K/mm3 (150-450); RBC Distribution Width CV 14.9 % (11.6-14.6); RBC Distribution Width SD 50.3 fl (35.1-43.9); Red Blood Count 4.62 M/mm3 (4.2-5.4)
[2024-11-09] MEDS: Ursodiol 250 MG Tablet 500 MG PO ×3 (06:03→21:39)
[2024-11-09 06:07] LABS: ALB/GLOB Ratio 0.9 RATIO (0.9-2.4); AST(SGOT) 57 U/L (15-37); Alanine Aminotransfer ALT/SGPT 45 U/L (13-56); Albumin, Serum 2.4 g/dL (3.2-5.0); Alkaline Phosphatase 136 U/L (45-117); Anion Gap 6 (5-15); BUN 10 mg/dL (7-18); BUN/Creat Ratio 29.4 RATIO (10-20); Chloride 109 mmol/L (98-107); Creatinine, Serum 0.34 mg/dL (0.55-1.02); EST Glomerular Filtration Rate 205 mL/min (>60); Est Glom Filt Rate - Afr Amer 248 mL/min (>60); Estimated Creatinine Clearance 80.84 ml/min; Globulin 2.7 g/dL (2.2-4.2); Glucose 126 mg/dL (74-106); Potassium 4.5 mmol/L (3.5-5.1); Protein, Total 5.1 g/dL (6.4-8.2); Sodium Level 138 mmol/L (136-145)
[2024-11-09] MEDS: Ipratropium/Albuterol Sulfate 3 ML AMPUL.NEB INHALATION ×4 (07:32→20:04)
--- NOTE | 2024-11-09 07:47 | PCM.PN.HOSP ---
Reason for Visit Reason for Visit: Diagnoses Influenza due to other identified influenza virus with other respiratory manifestations (11/08/24) Unspecified asthma with (acute) exacerbation (11/08/24) Hypoxemia (11/08/24) Objective Data Objective Data Vital Signs: Vital Signs Temp Pulse Resp BP Pulse Ox O2 Del Method O2 Flow Rate 97.6 F L 83 20 H 115/51 L 94 Nasal Cannula 2 11/09/24 02:41 11/09/24 02:41 11/09/24 02:41 11/09/24 02:41 11/09/24 02:41 11/09/24 02:42 11/09/24 02:42 Oxygen Flow Rate (L/min) 2 Oxygen Delivery Method Nasal Cannula Weight: 214 lb 1.102 oz Body Mass Index (BMI) 35.6 Intake & Output: Intake and Output for Last 24 Hours 11/07/24 11/08/24 11/09/24 23:59 23:59 23:59 Output Total 0 / 0 Balance 0 / 0 Lab / Micro Data 11/09/24 04:59 11/09/24 04:59 Labs: Laboratory Results - last 24 hr 11/08/24 19:42: WBC 4.2 L, RBC 4.87, Hgb 14.4, Hct 44.7, MCV 91.8, MCH 29.6, MCHC 32.2, RDW Std Deviation 50.4 H, RDW Coeff of Kiya 14.9 H, Plt Count 57 L, MPV 10.7, Immature Gran % (Auto) 0.500, Neut % (Auto) 66.6, Lymph % (Auto) 21.4, [place] % (Auto) 10.8 H, Eos % (Auto) 0.2, Baso % (Auto) 0.5, Absolute Neuts (auto) 2.8, Absolute Lymphs (auto) 0.89, Nucleated RBC % 0, Sodium 137, Potassium 4.2, Chloride 106, Carbon Dioxide 25.0, Anion Gap 6, BUN 9, Creatinine 0.43 L, Estim Creat Clear Calc 82.75, Est GFR (MDRD) Af Amer 190, Est GFR (MDRD) Non-Af 157, BUN/Creatinine Ratio 21.0 H, Glucose 91, Calcium 8.4 L, Troponin I High Sens 28 11/08/24 23:10: Procalcitonin 0.08 11/09/24 04:59: WBC 3.0 L, RBC 4.62, Hgb 13.6, Hct 42.5, MCV 92.0, MCH 29.4, MCHC 32.0, RDW Std Deviation 50.3 H, RDW Coeff of Kiya 14.9 H, Plt Count 53 L, MPV 12.1 H, Immature Gran % (Auto) 0.700, Neut % (Auto) 84.3 H, Lymph % (Auto) 12.3 L, [place] % (Auto) 2.7, Eos % (Auto) 0.0, Baso % (Auto) 0.0, Absolute Neuts (auto) 2.5, Absolute Lymphs (auto) 0.37 L, Nucleated RBC % 0, Sodium 138, Potassium 4.5, Chloride 109 H, Carbon Dioxide 23.0, Anion Gap 6, BUN 10, Creatinine 0.34 L, Estim Creat Clear Calc 80.84, Est GFR (MDRD) Af Amer 248, Est GFR (MDRD) Non-Af 205, BUN/Creatinine Ratio 29.4 H, Glucose 126 H, Calcium 8.0 L, Total Bilirubin 0.80, AST 57 H, ALT 45, Alkaline Phosphatase 136 H, Total Protein 5.1 L, Albumin 2.4 L, Globulin 2.7, Albumin/Globulin Ratio 0.9 Micro: Microbiology 11/08/24 19:42 Mucosa - Nose SARS-CoV-2, Influenza & RSV (PCR) - Final Influenzae A Radiography Diagnostic Testing: Radiology Impression Chest X-Ray 11/08/24 20:02 IMPRESSION: No acute airspace abnormality. Probable bibasilar scarring/atelectasis. Reading Location: [facility] Physical Exam Narrative Seen and examined Patient with mild shortness of breath. Not on home oxygen. Mild cough predominantly dry. Physical exam General: Alert, Oriented x3, Cooperative HEENT: Atraumatic, PERRLA, EOMI, Normocephalic Oral: No Gingival or Mucosal Lesions/ Ulcerations Neck: Supple, No JVD, Negative Carotid Bruits Chest wall/Lungs: Air entry diminished in bilateral lung bases. Mild expiratory wheezing Cardiovascular: Regular rate, Regular Rhythm, Normal S1, Normal S2, No M/G/R Abdomen: Bowel Sounds Present, Soft, Non Tender, Non-Distended : No dysuria. No renal angle tenderness. No suprapubic tenderness. Extremities: No edema, Capillary Refill Less than 3 Seconds Skin: No rashes, No breakdown Musculoskeletal: No Tenderness to Palpation of Joints or Extremities Neurological: Cranial nerves II-XII grossly intact, DTR 2+/4. No acute focal neurological deficit. Psych/Mental Status: Normal Affect, Appropriate. Assessment & Plan Assessment/Plan (1) Asthma exacerbation: (2) Hypoxia: (3) Influenza A: PLAN: Plan The patient is a 64 y/o F admitted with shortness of breath, productive cough, occasional wheezing for 3 days, got worse on the day of admission along with systemic symptoms of fatigue malaise. #1. Acute Hypoxia secondary to Acute on Chronic Asthma exacerbation secondary to Acute Influenza A Viral Syndrome: Patient is admitted in PCU with MedSurg status. Patient is being managed on scheduled bronchodilator, IV Solu-Medrol, Mucinex, incentive spirometry and Pep. Started on Tamiflu. Patient quit smoking in 2009 but she states it was not a big a smoker. Sometimes 2 to 3 cigarettes. #2. Primary biliary cholangitis with chronic liver cirrhosis with associated chronic thrombocytopenia, portal hypertension: Admission CBC with WBC 4.2, hemoglobin 14.4, platelet 57, baseline platelets noted previous primarily 60-90 range, last noted 09/25/2024 platelets 80. continue patient home Coreg, ursodiol, Lasix, spironolactone home regimen. Probably she was on Ocaliva but currently not taking it. Advised follow-up with her GI/software support representative. Monitor liver chemistries and INR #3. Chronic immunodeficiency: Patient on weekly IVIG, encourage continued outpatient follow-up as previously arranged, complicates current presentation. #4. Mixed connective tissue disease: Encourage continued outpatient follow-up as previously arranged, continue hydroxychloroquine home regimen. #5. Allergic rhinitis: continue patient home montelukast regimen. #6. History DVT: Not chronically anticoagulated, will maintain on chemoprophylaxis cautiously as noted given chronic thrombocytopenia. #7. DVT prophylaxis: Lovenox very cautiously, monitor CBC and de-escalate as appropriate. #8. CODE status: Patient does not have healthcare power of axle bearing polisher or living will in place but she notes her daughter would be her medical decision-maker if necessary. Discussed CODE status at length including difference between FULL code, DNR-CCA and DNR-CC status. Following discussions about the differences in these status, requested Full Code status. Charges/Coding Visit Charges Inpatient E&M: 26808 Subs Hosp L2
[2024-11-09] MEDS: Carvedilol 3.125 MG TABLET PO ×2 (08:23→17:00)
[2024-11-09] MEDS: Oseltamivir Phosphate 75 MG Capsule PO ×2 (08:24→21:39)
[2024-11-09] MEDS: Hydroxychloroquine 200 MG Tablet 150 MG PO ×2 (10:10→21:39)
[2024-11-09] MEDS: Spironolactone 50 MG Tablet 100 MG PO (10:10)
[2024-11-09] MEDS: Enoxaparin 40 MG/0.4 ML Syringe SC (10:16)
[2024-11-09] MEDS: Montelukast 10 MG Tablet PO (10:16)
--- NOTE | 2024-11-09 14:37 | NURSING ---
pt statesbreathing feels better. SPO2 97-100 on 2L. O2 turned off will recheck soon
[2024-11-09] MEDS: 0.9% Saline Lock 10 ML Syringe IV ×2 (14:57→21:40)
[2024-11-09] MEDS: Senna/Docusate Sodium 1 Tablet 2 TABLET PO (21:39)
[2024-11-10] VITALS (8 sets, daily range): BP systolic 104–114; BP diastolic 52–60; PULSE 56–85; RESP 16–18; TEMP 36–36.6; O2SAT 93–97; BMI 35.9
[2024-11-10] MEDS: guaiFENesin 10 ML UDC (200MG/10ML) 20 ML PO ×2 (03:50→21:50)
[2024-11-10] MEDS: Ursodiol 250 MG Tablet 500 MG PO ×3 (05:52→21:45)
[2024-11-10 07:55] LABS: Absolute Lymphocyte Count 0.83 X10^3/uL (0.83-4.51); Absolute Neutrophil Count 4.8 X10^3/uL (2.0-7.7); Basophil# 0.01 X10^3/uL; Basophil% 0.2 % (0-1); Hematocrit 43.4 % (37-47); Hemoglobin 13.9 g/dL (12.0-15.0); Lymphocyte # 0.83 X10^3/ul (0.83-4.51); Lymphocyte % 13.8 % (19-41); Mean Corpuscular Hgb 29.6 pg (27.0-32.0); Mean Corpuscular Volume 92.3 fL (81-99); Mean Platelet Vol. 11.7 fl (6.2-12.0); Monocyte# 0.33 X10^3/uL; Monocyte% 5.5 % (0-10); NRBC Flagged by Analyzer 0 % (0-5); Neutrophil # 4.83 X10^3/uL (2.7-7.7); Neutrophil % 80.2 % (47-70); POSITIVE COUNT YES; Platelet Count 64 K/mm3 (150-450); RBC Distribution Width CV 14.6 % (11.6-14.6); RBC Distribution Width SD 50.4 fl (35.1-43.9)
[2024-11-10] MEDS: Ipratropium/Albuterol Sulfate 3 ML AMPUL.NEB INHALATION ×4 (07:55→20:45)
[2024-11-10 08:18] LABS: Prothrombin Time (Protime)PT. 13.4 SECONDS (11.7-14.9)
[2024-11-10 08:20] LABS: Platelet Estimate MOD DEC (ADEQ)
[2024-11-10 08:25] LABS: AST(SGOT) 50 U/L (15-37); Alanine Aminotransfer ALT/SGPT 43 U/L (13-56); Albumin, Serum 2.4 g/dL (3.2-5.0); Alkaline Phosphatase 128 U/L (45-117); Anion Gap 7 (5-15); BUN 15 mg/dL (7-18); BUN/Creat Ratio 39.6 RATIO (10-20); Calcium,Total 8.4 mg/dL (8.5-10.1); Chloride 107 mmol/L (98-107); Creatinine, Serum 0.38 mg/dL (0.55-1.02); EST Glomerular Filtration Rate 181 mL/min (>60); Est Glom Filt Rate - Afr Amer 219 mL/min (>60); Estimated Creatinine Clearance 81.24 ml/min; Globulin 2.9 g/dL (2.2-4.2); Glucose 120 mg/dL (74-106); Potassium 4.6 mmol/L (3.5-5.1); Protein, Total 5.3 g/dL (6.4-8.2); Sodium Level 136 mmol/L (136-145)
[2024-11-10] MEDS: Montelukast 10 MG Tablet PO (09:10)
[2024-11-10] MEDS: Oseltamivir Phosphate 75 MG Capsule PO ×2 (09:10)
[2024-11-10] MEDS: Spironolactone 50 MG Tablet 100 MG PO (09:10)
[2024-11-10] MEDS: Carvedilol 3.125 MG TABLET PO ×2 (09:11→17:31)
[2024-11-10] MEDS: Enoxaparin 40 MG/0.4 ML Syringe SC (09:11)
[2024-11-10] MEDS: Hydroxychloroquine 200 MG Tablet PO (10:54)
--- NOTE | 2024-11-10 14:30 | CASEMGMT ---
TI LAWS Assessment: Face to Face with pt for initial transition planning/care coordination assessment. TI LAWS introduced self and role at [facility], pt voices understanding and consents to assessment. Pt is A&O x4 and answers all questions appropriately at this time. Pt sitting up in chair in no distress. Care providers, pharmacy, and demographics verified/updated. Strata: 3 Admitting Dx: Influenza, Asthma Exac, hypoxia PCP: Vazquez Specialists: Kaley, gastro; Giancarlo, allergies; Jasper, accounts payable supervisor; Daljit, neurologist Preferred Pharmacy: [facility] Insurance: Scale[employer] REYMUNDO Prescription Benefit: yes LNOK: [place] Living Arrangements: Pt lives with in a 1 story home with 3 steps to enter. ADLs: Pt I at baseline. Works in IT at [employer] Transportation: Pt drives self and denies concerns with transportation. DME: Denies HHC/SNF:Denies Hx of. Pt states no concerns with going home at time of dc. RN EUSEBIA discussed possible O2 needs at time of DC, provided verbal list of O2 providers in the area. Pt chose [facility] as O2 provider of choice if needed at time of DC. Pt states no further concerns/needs. CM to follow. Advised pt to ask CM if any further question/concerns/needs arise, voices understanding. Pt Goal: Home Plan: Home, follow for O2. Kajal LUKE CM
--- NOTE | 2024-11-10 17:43 | PN.HOSP_ITS ---
Reason for Visit Reason for Visit: Diagnoses Influenza due to other identified influenza virus with other respiratory manifestations (11/08/24) Unspecified asthma with (acute) exacerbation (11/08/24) Hypoxemia (11/08/24) Subjective Subjective Patient was seen and examined today, she is currently on 2 L of oxygen via nasal cannula at rest. Patient states she does not wear oxygen at home. Objective Data Objective Data Vital Signs: Vital Signs Temp Pulse Resp BP Pulse Ox O2 Del Method O2 Flow Rate 97.5 F L 75 18 110/52 L 95 Nasal Cannula 2 11/10/24 09:30 11/10/24 14:51 11/10/24 14:51 11/10/24 09:30 11/10/24 09:30 11/10/24 09:30 11/10/24 09:30 Oxygen Flow Rate (L/min) 2 Oxygen Delivery Method Nasal Cannula Weight: 98 kg Body Mass Index (BMI) 35.9 Intake & Output: Intake and Output for Last 24 Hours 11/08/24 11/09/24 11/10/24 23:59 23:59 23:59 Intake Total 1500 / 1740 480 / 480 Output Total 0 / 0 Balance 0 / 0 1500 / 1740 480 / 480 Lab / Micro Data 11/10/24 07:19 11/10/24 07:19 Labs: Laboratory Results - last 24 hr 11/10/24 07:19: WBC 6.0, RBC 4.70, Hgb 13.9, Hct 43.4, MCV 92.3, MCH 29.6, MCHC 32.0, RDW Std Deviation 50.4 H, RDW Coeff of Kiya 14.6, Plt Count 64 L, MPV 11.7, Immature Gran % (Auto) 0.300, Neut % (Auto) 80.2 H, Lymph % (Auto) 13.8 L, [place] % (Auto) 5.5, Eos % (Auto) 0.0, Baso % (Auto) 0.2, Absolute Neuts (auto) 4.8, Absolute Lymphs (auto) 0.83, Nucleated RBC % 0, Platelet Estimate MOD DEC, PT 13.4, INR 1.0, Sodium 136, Potassium 4.6, Chloride 107, Carbon Dioxide 23.0, Anion Gap 7, BUN 15, Creatinine 0.38 L, Estim Creat Clear Calc 81.24, Est GFR (MDRD) Af Amer 219, Est GFR (MDRD) Non-Af 181, BUN/Creatinine Ratio 39.6 H, G lucose 120 H, Calcium 8.4 L, Total Bilirubin 0.80, Direct Bilirubin 0.30, AST 50 H, ALT 43, Alkaline Phosphatase 128 H, Total Protein 5.3 L, Albumin 2.4 L, Globulin 2.9 Micro: Microbiology 11/08/24 21:23 Sputum, Expectorated/Coughed Gram Stain - Final 11/08/24 19:42 Mucosa - Nose SARS-CoV-2, Influenza & RSV (PCR) - Final Influenzae A Physical Exam Const alert, oriented x3 and no apparent distress Constitutional Narrative: Patient appears older than her stated age General Appearance: cooperative, well kempt and well developed Orientation / Consciousness: awake, oriented to person, oriented to place and oriented to time HEENT normocephalic, head/scalp atraumatic and moist oral mucous membranes Eyes PERRL, EOMs intact bilaterally and conjunctivae normal Neck supple, no JVD, thyroid normal and no carotid bruits General: trachea midline Resp normal respiratory effort, no retractions and no use of accessory muscles Resp Narrative: Bilateral expiratory wheezes are noted which are faint Auscultation: wheezes; Negative for rales or rhonchi Cardio regular rate, regular rhythm, S1 normal heart sound, S2 normal heart sound, no murmurs, no rub and no gallops GI normal to inspection, nondistended, normoactive bowel sounds, soft to palpation, non-tender and non-distended Extremity no clubbing, cyanosis or edema Skin no rashes or lesions noted General Skin Exam: no breakdown Neuro oriented x3, CN's II-XII intact bilaterally, moves all extremities, no focal motor deficits and no sensory deficits noted Sensorium / Orientation: awake and alert Speech: speech normal Psych affect normal Assessment & Plan Assessment/Plan (1) Influenza A: PLAN: Plan 1. 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-complicates care, management, recovery, and prognosis Total clinical time spent by myself addressing the patient's medical issues, reviewing all of her data, and collaborating with patient's care team: 35 minutes Charges/Coding Visit Charges Inpatient E&M: 64199 Subs Hosp L2
[2024-11-10] MEDS: 0.9% Saline Lock 10 ML Syringe IV (21:45)
[2024-11-10] MEDS: Senna/Docusate Sodium 1 Tablet 2 TABLET PO (21:46)
[2024-11-11] VITALS (9 sets, daily range): BP systolic 105–118; BP diastolic 48–79; PULSE 63–78; RESP 16–20; TEMP 35.8–36.3; O2SAT 88–95; BMI 36.6
[2024-11-11] MEDS: Ursodiol 250 MG Tablet 500 MG PO ×2 (05:54→14:56)
[2024-11-11] MEDS: 0.9% Saline Lock 10 ML Syringe IV ×2 (05:55→14:56)
[2024-11-11 07:28] LABS: Absolute Lymphocyte Count 0.88 X10^3/uL (0.83-4.51); Absolute Neutrophil Count 3.7 X10^3/uL (2.0-7.7); Basophil# 0.01 X10^3/uL; Basophil% 0.2 % (0-1); Hemoglobin 14.8 g/dL (12.0-15.0); Lymphocyte # 0.88 X10^3/ul (0.83-4.51); Mean Corp Hgb Conc 32.9 g/dL (32-36); Mean Corpuscular Hgb 30.6 pg (27.0-32.0); Mean Platelet Vol. 11.2 fl (6.2-12.0); Monocyte# 0.27 X10^3/uL; Monocyte% 5.5 % (0-10); NRBC Flagged by Analyzer 0 % (0-5); Neutrophil # 3.69 X10^3/uL (2.7-7.7); Neutrophil % 75.7 % (47-70); POSITIVE COUNT YES; Platelet Count 67 K/mm3 (150-450); RBC Distribution Width CV 14.8 % (11.6-14.6); RBC Distribution Width SD 50.5 fl (35.1-43.9); Red Blood Count 4.84 M/mm3 (4.2-5.4); White Blood Count 4.9 K/mm3 (4.4-11.0)
[2024-11-11] MEDS: Ipratropium/Albuterol Sulfate 3 ML AMPUL.NEB INHALATION ×3 (07:40→15:11)
[2024-11-11 07:52] LABS: Anion Gap 2 (5-15); BUN 19 mg/dL (7-18); BUN/Creat Ratio 37.7 RATIO (10-20); Calcium,Total 8.4 mg/dL (8.5-10.1); Chloride 110 mmol/L (98-107); EST Glomerular Filtration Rate 130 mL/min (>60); Est Glom Filt Rate - Afr Amer 158 mL/min (>60); Estimated Creatinine Clearance 82.03 ml/min; Glucose 107 mg/dL (74-106); Potassium 4.5 mmol/L (3.5-5.1); Sodium Level 138 mmol/L (136-145)
[2024-11-11] MEDS: Montelukast 10 MG Tablet PO (09:37)
[2024-11-11] MEDS: Oseltamivir Phosphate 75 MG Capsule PO (09:37)
[2024-11-11] MEDS: Acetaminophen 325 MG Tablet 650 MG PO (09:37)
[2024-11-11] MEDS: Enoxaparin 40 MG/0.4 ML Syringe SC (09:37)
[2024-11-11] MEDS: Spironolactone 50 MG Tablet 100 MG PO (09:37)
[2024-11-11] MEDS: Carvedilol 3.125 MG TABLET PO (09:37)
[2024-11-11] MEDS: Hydroxychloroquine 200 MG Tablet PO (09:37)
--- NOTE | 2024-11-11 15:43 | DCINST_ITS ---
Discharge Instructions Diet Discharge Diet: No restrictions DC O2, CPAP, BIPAP needs Home O2 Discharge instructions: Yes Type of respiratory needs?: Oxygen Oxygen frequency: Continuous Continuous oxygen liters per minute: 1 L Dressing / Incision Discharge Activity: Return to Normal Activity Weight Bearing Status: Full weight bearing Follow Up Care Test Results: Test results from this visit will be discussed in further detail at your follow- up appointment, if applicable. Discharge Plan Admission Admit Date/Time: 11/08/24 22:10 Primary Reason for Your Visit: Exacerbation of asthma, influenza A Attending Provider: Jak Gonzalez Primary Care Provider: Lionel Shukla [employer] Providers: Alena Mendoza; Romain Sanders Discharge Orders/Prescriptions Prescriptions: New oseltamivir 75 mg Capsule 75 mg PO BID Qty: 3 0RF Rx Instructions: Take the first dose the evening of 11/11/2024 prednisone 20 mg tablet 20 mg PO BID Qty: 11 0RF Rx Instructions: Start the evening of 11/11/2024 Continued hydroxychloroquine 100 mg tablet 150 mg PO BID fluticasone propion-salmeterol [Advair Diskus] 250-50 mcg/dose blister with device 1 inh inhalation BID cholecalciferol (vitamin D3) 25 mcg (1,000 unit) capsule 25 mcg PO DAILY Hizentra 1 gram/5 mL (20 %) solution 5 ml subcut QWEEK albuterol sulfate 90 mcg/actuation HFA aerosol inhaler 2 puff inhalation Q6H PRN (Reason: Shortness Of Breath) spironolactone 100 mg tablet 100 mg PO DAILY carvedilol 3.125 mg tablet 3.125 mg PO BID montelukast [Singulair] 10 mg Tablet 10 mg PO DAILY furosemide 20 mg tablet 20 mg PO DAILY PRN (Reason: swelling) ursodiol 500 mg tablet 500 mg PO TID Spiriva Respimat 1.25 mcg/actuation mist INHALATION DAILY Discontinued levofloxacin 500 mg tablet 500 mg PO DAILY Qty: 7 0RF methylprednisolone [Medrol (Johan)] 4 mg tablets,dose pack See Rx Instructions PO PER PKG DIR Qty: 21 0RF Rx Instructions: PO PER PKG DIR Referrals / Follow Up: Lionel Shukla Chi, MD [Primary Care Provider] - In 1 Week Disposition Disposition (needs filled in before D/C Order can be placed): Home, Self Care
--- NOTE | 2024-11-11 15:43 | CASEMGMT ---
Patient has order for discharge. Patient qualifies for home oxygen, script received. TI LAWS in to discuss needs at discharge and updated regarding home oxygen. Patient [place] [facility] [place]. Patient denies further needs or help at discharge. Patient had no further questions or concerns. TI LAWS sent referral to [facility] via [facility] and arrangements made for tank to be delivered to patient's room. TI LAWS updated discharge plan.
--- NOTE | 2024-11-11 15:50 | DS.PCM_ITS ---
Providers Date of Admission: 11/08/24 Date of Discharge: 11/11/24 Primary Care Physician: Dr. Lionel Shukla MD Reason For Visit: INFLUENZA, ASTHMA EXAC, HYPOXIA Diagnosis Discharge Diagnosis (1) Influenza A: Status: Acute Code(s): J10.1 - Influenza due to other identified influenza virus with other respiratory manifestations Plan 1. 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-complicates care, management, recovery, and prognosis Total clinical time spent by myself addressing the patient's medical issues, reviewing all of her data, and collaborating with patient's care team: 35 minutes Medications at Discharge Home Medications carvedilol 3.125 mg tablet 3.125 mg PO BID 09/08/21 furosemide 20 mg tablet 20 mg PO DAILY PRN swelling 09/08/21 montelukast 10 mg tablet (Singulair) 10 mg PO DAILY allergies 09/08/21 spironolactone 100 mg tablet 100 mg PO DAILY diuretic 09/08/21 ursodiol 500 mg tablet 500 mg PO TID gallstones 09/08/21 albuterol sulfate 90 mcg/actuation aerosol inhaler 2 puff inhalation Q6H PRN Shortness Of Breath 10/13/21 cholecalciferol (vitamin D3) 25 mcg (1,000 unit) capsule 25 mcg PO DAILY vitamin 10/13/21 fluticasone 250 mcg-salmeterol 50 mcg/dose blistr powdr for inhalation (Advair Diskus) 1 inh inhalation BID breathing 10/13/21 hydroxychloroquine 100 mg tablet 150 mg PO BID 10/13/21 immune glob G 1 gram/5 mL(20 %)-prol-IgA 0-50 mcg/mL subcutaneous soln (Hizentra) 5 ml subcut QWEEK 10/13/21 tiotropium bromide 1.25 mcg/actuation mist for inhalation (Spiriva Respimat) inhalation DAILY 11/08/24 oseltamivir 75 mg capsule 75 mg PO BID #3 caps 11/11/24 prednisone 20 mg tablet 20 mg PO BID #11 tabs 11/11/24 Hospital Course Operations None Procedures None Summary of Care Provided Minutes Spent on Discharge: 31 Hospital Course: This 64-year-old white female was seen in the emergency room at [facility] with complaints of generalized fatigue and productive cough. Patient uses inhalers and Singulair at home but does not wear oxygen. Workup in the emergency room included a CBC which showed a white blood cell count of 4.2 and patient's CHEM panel was unremarkable. Chest x-ray showed no acute airspace abnormality, and also indicated probable bibasilar scarring or atelectasis. Patient's viral swab was positive for influenza A, she was admitted to PCU and placed on Tamiflu and her pulse ox was monitored. Patient was placed on corticosteroids. Patient improved during her hospitalization, at the time of discharge home, she required 1 L of oxygen with ambulation only. On 11/11/2024, patient was seen and examined: On examination she appeared in good health and spirits, she does not appear to be in any distress. Vital signs as documented. Skin warm and dry and without overt rashes. Neck without JVD, thyroid appears normal, trachea is midline, neck is supple. Lungs clear, normal air movement was noted. Heart exam notable for regular rhythm, normal sounds and absence of murmurs, rubs or gallops. Abdomen unremarkable and without evidence of organomegaly, masses, or abdominal aortic enlargement, bowel sounds are present in all 4 quadrants, no abdominal tenderness was noted. Extremities nonedematous, no cyanosis was noted, no clubbing was noted. Neuro: Cranial nerves II through XII are grossly intact, no focal motor deficits were noted, sensation to light touch and pinprick is intact, motor exam 5/5 throughout. Psych: Patient is alert and oriented x3, she does not appear anxious or depressed, she does not appear agitated. Patient appears stable for discharge home on 11/11/2024. Weight / BMI Weight Weight: 99.8 kg Body Mass Index (BMI) 36.6 ABG / Lab / Microbiology Data 11/11/24 07:02 11/11/24 07:02 Laboratory: Laboratory Results - last 24 hr 11/11/24 07:02: WBC 4.9, RBC 4.84, Hgb 14.8, Hct 45.0, MCV 93.0, MCH 30.6, MCHC 32.9, RDW Std Deviation 50.5 H, RDW Coeff of Kiya 14.8 H, Plt Count 67 L, MPV 11.2, Immature Gran % (Auto) 0.600, Neut % (Auto) 75.7 H, Lymph % (Auto) 18.0 L, [place] % (Auto) 5.5, Eos % (Auto) 0.0, Baso % (Auto) 0.2, Absolute Neuts (auto) 3.7, Absolute Lymphs (auto) 0.88, Nucleated RBC % 0, Sodium 138, Potassium 4.5, Chloride 110 H, Carbon Dioxide 26.0, Anion Gap 2 L, BUN 19 H, Creatinine 0.50 L, Estim Creat Clear Calc 82.03, Est GFR (MDRD) Af Amer 158, Est GFR (MDRD) Non-Af 130, BUN/Creatinine Ratio 37.7 H, Glucose 107 H, Calcium 8.4 L Microbiology: Microbiology 11/08/24 21:23 Sputum, Expectorated/Coughed Gram Stain - Final 11/08/24 21:23 Sputum, Expectorated/Coughed Respiratory Culture - Final Staphylococcus aureus Haemophilus influenzae 11/08/24 19:42 Mucosa - Nose SARS-CoV-2, Influenza & RSV (PCR) - Final Influenzae A D/C Instructions Discharge Diet: No restrictions Weight Bearing Status: Full weight bearing DC O2, CPAP, BIPAP Needs Home O2 Discharge instructions: Yes Type of respiratory needs?: Oxygen Oxygen frequency: Continuous Continuous oxygen liters per minute: 1 L DC home with Oxygen: Yes Home O2 MD Review: I have reviewed the oxygen testing, and the patient qualifies for home oxygen equipment and portability. The patient is mobile in the home and the community. Meaningful Use Info Meaningful Use Meaningful Use Diagnoses (Choose all that apply): None applicable Ischemic Stroke Statin Dosing Therapy Reference: STATIN DOSE THERAPY REFERENCE: * Patients > 75 years receive moderate or high dose statin therapy. * Patients 75 years or YOUNGER should receive HIGH intensity statin dose unless contraindicated. You will be required to document reason for non-treatment if statin daily dose does not meet guidelines. HIGH DOSE STATIN THERAPY DAILY Atorvastatin > than or = to 40 mg Rosuvastatin > than or = to 20 mg Amlodipine + Atorvastatin > than or = to 2.5/40 mg Ezetimibe + Simvastatin 10/80 mg Simvastatin 80mg Discharge Plan Admission Admit Date/Time: 11/08/24 22:10 Primary Reason for Your Visit: Exacerbation of asthma, influenza A Attending Provider: Jak Gonzalez Primary Care Provider: Lionel Shukla Chi Consult[employer] Providers: Alena Mendoza; Romain Sanders Discharge Orders/Prescriptions Prescriptions: New oseltamivir 75 mg Capsule 75 mg PO BID Qty: 3 0RF Rx Instructions: Take the first dose the evening of 11/11/2024 prednisone 20 mg tablet 20 mg PO BID Qty: 11 0RF Rx Instructions: Start the evening of 11/11/2024 Continued hydroxychloroquine 100 mg tablet 150 mg PO BID fluticasone propion-salmeterol [Advair Diskus] 250-50 mcg/dose blister with device 1 inh inhalation BID cholecalciferol (vitamin D3) 25 mcg (1,000 unit) capsule 25 mcg PO DAILY Hizentra 1 gram/5 mL (20 %) solution 5 ml subcut QWEEK albuterol sulfate 90 mcg/actuation HFA aerosol inhaler 2 puff inhalation Q6H PRN (Reason: Shortness Of Breath) spironolactone 100 mg tablet 100 mg PO DAILY carvedilol 3.125 mg tablet 3.125 mg PO BID montelukast [Singulair] 10 mg Tablet 10 mg PO DAILY furosemide 20 mg tablet 20 mg PO DAILY PRN (Reason: swelling) ursodiol 500 mg tablet 500 mg PO TID Spiriva Respimat 1.25 mcg/actuation mist INHALATION DAILY Discontinued levofloxacin 500 mg tablet 500 mg PO DAILY Qty: 7 0RF methylprednisolone [Medrol (Johan)] 4 mg tablets,dose pack See Rx Instructions PO PER PKG DIR Qty: 21 0RF Rx Instructions: PO PER PKG DIR Referrals / Follow Up: Lionel Shukla Chi, MD [Primary Care Provider] - In 1 Week (office closed at time of discharge, please call to schedule a follow up appointment.) Disposition Disposition (needs filled in before D/C Order can be placed): Home, Self Care Charges/Coding Visit Charges Inpatient E&M: 13854 Disch Hosp >30min
== END 2024-11-11 17:10 | disposition home or self-care (01) | DRG 202 ==
LOC: ED 20:14 → PCU 22:38
PROVIDERS: Internal Medicine; Physician Assistant; Admitting Provider Family Medicine; Emergency Provider Emergency Medicine; PCP Family Medicine Geriatric Medicine; Visit Provider Internal Medicine
DX: J45.901 Unspecified asthma with (acute) exacerbation (principal); D84.9 Immunodeficiency, unspecified; M35.1 Other overlap syndromes; K76.6 Portal hypertension; K74.3 Primary biliary cirrhosis; E66.9 Obesity, unspecified; J10.1 Influenza due to other identified influenza virus with other respiratory manifestations; I25.2 Old myocardial infarction; Z79.51 Long term (current) use of inhaled steroids; Z79.899 Other long term (current) drug therapy; Z86.718 Personal history of other venous thrombosis and embolism; Z86.16 Personal history of COVID-19; Z87.891 Personal history of nicotine dependence; Z68.37 Body mass index [BMI] 37.0-37.9, adult
CPT/HCPCS: 36415; 71046; 80048; 80053; 80076; 84145; 84484; 85025; 85610; 87070; 87077; 87186; 87205; 87631; 93005; 94640; 94668; 97161; 97166; 99285; A4216

== ENCOUNTER → 2025-01-20 | Outpatient (CLI) | payer OTHER, SELFPAY | END | disposition home or self-care (01) | LOC: LABSPEC 19:12 | PROVIDERS: PCP Family Medicine Geriatric Medicine; Referring Provider Family Medicine Geriatric Medicine; Visit Provider Family Medicine Geriatric Medicine | DX: R05.9 Cough, unspecified (principal); R06.2 Wheezing | CPT/HCPCS: 87631 ==

== ENCOUNTER → 2025-02-04 | Outpatient (CLI) | payer OTHER, SELFPAY ==
[2025-02-04 18:06] LABS: Hematocrit 46.1 % (37-47); Hemoglobin 14.9 g/dL (12.0-15.0); Mean Corp Hgb Conc 32.3 g/dL (32-36); Mean Corpuscular Hgb 31.2 pg (27.0-32.0); Mean Corpuscular Volume 96.6 fL (81-99); Mean Platelet Vol. 11.5 fl (6.2-12.0); POSITIVE COUNT YES; Platelet Count 66 K/mm3 (150-450); RBC Distribution Width CV 15.6 % (11.6-14.6); RBC Distribution Width SD 54.8 fl (35.1-43.9); Red Blood Count 4.77 M/mm3 (4.2-5.4); White Blood Count 4.9 K/mm3 (4.4-11.0)
[2025-02-04 18:40] LABS: International Normalized Ratio 0.9; Prothrombin Time (Protime)PT. 12.7 SECONDS (11.7-14.9)
[2025-02-04 18:41] LABS: Partial Thromboplast Time 26.1 Seconds (24.1-36.2)
[2025-02-05 11:14] LABS: ALB/GLOB Ratio 1.5 RATIO (0.9-2.4); AST(SGOT) 50 U/L (<=31); Alanine Aminotransfer ALT/SGPT 44 U/L (<=34); Albumin, Serum 3.3 g/dL (3.4-4.8); Alkaline Phosphatase 100 U/L (35-104); Anion Gap 8 (5-15); BUN 9 mg/dL (4-19); BUN/Creat Ratio 17.9 RATIO (10-20); Calcium,Total 8.9 mg/dL (7.6-11.0); Carbon Dioxide 25.7 mmol/L (21.0-32.0); Chloride 108 mmol/L (98-108); Creatinine, Serum 0.51 mg/dL (0.70-1.20); EST Glomerular Filtration Rate 104 (>60); Globulin 2.3 g/dL (2.2-4.2); Glucose 88 mg/dL (70-99); Potassium 4.3 mmol/L (3.3-5.1); Protein, Total 5.6 g/dL (5.9-8.4); Sodium Level 141 mmol/L (133-145); Total Bilirubin 1.25 mg/dL (0.00-1.30)
[2025-02-06 04:07] LABS: AFP, Tumor Marker 2.5 ng/mL (0.0-9.2)
== END | disposition home or self-care (01) ==
LOC: MTLAB 15:15
PROVIDERS: PCP Family Medicine Geriatric Medicine; Referring Provider Internal Medicine Gastroenterology; Visit Provider Internal Medicine Gastroenterology
DX: K74.60 Unspecified cirrhosis of liver (principal)
CPT/HCPCS: 36415; 80053; 82105; 85027; 85610; 85730

== ENCOUNTER → 2025-02-11 | Outpatient (CLI) | payer OTHER, MEDICARE, SELFPAY ==
--- NOTE | 2025-02-11 07:51 | MRI_ITS ---
PROCEDURE: MRI ABD WITH AND W/O CONTRAST, 02/11/2025 REASON FOR EXAM: CIRRHOSIS TECHNIQUE: Multiplanar multisequence MRI abdomen was performed with and without IV contrast. IV contrast: 19 mL Clariscan COMPARISON: 11/22/2021 FINDINGS: Variable overall mild motion limitation. Some sequences are mild/moderately motion degraded. Exam limited by lack of a true late arterial phase of postcontrast imaging, with imaging performed in the early arterial phase and subsequently in the hepatic venous phase. This slightly limits sensitivity for hypovascular lesions. Note some abdominal viscera are excluded from the field of view as the exam was optimized for evaluation of the liver. Liver: Cirrhosis. Grossly similar roughly 1.0 cm T1 dark and T2 bright lesion in the posterior RIGHT hepatic dome, possible cyst but difficult to definitively characterize given motion in the region, but without definite enhancement. This was present previously at which time it was felt to represent a cyst, similar to 2021, perhaps minimally enlarged from 11/19/2019 at which time it measured 0.7 cm. No new focal hepatic lesion identified. Spleen: Splenomegaly, 14.9 cm.. Gallbladder: Distended without definite stones or biliary dilatation. Mild nonspecific wall thickening. No biliary dilatation. Pancreas: 0.7 cm hypoenhancing structure in the pancreatic head difficult to characterize as a cyst as this is not visible on T2 weighted sequences, probably unchanged from 06/21/2020. No ductal dilatation. Adrenals: Unremarkable. Kidneys: Numerous cysts and additional small T1 bright lesions without definite enhancement on motion degraded subtraction sequences, noting that subtraction imaging does not include the entirety of the kidneys and there are lesions on coronal/sagittal sequences which are incompletely characterized, at least the majority likely reflect hemorrhagic/proteinaceous cysts. Bowel: Not well evaluated by MRI. Suspect a periampullary duodenal diverticulum... Lymph nodes: Unremarkable. Vasculature: Patent portal vein. Enlarged and tortuous splenic vein and SMV. Retroperitoneal collaterals with likely splenorenal shunt.. Peritoneum: Unremarkable.No visualized ascites. Bones: No enhancing bony lesion. T2 bright presumed vertebral body hemangiomas.. MRI/MRI Abd WITH and W/O Contrast IMPRESSION: 1. Slightly limited exam as above. 2. Cirrhosis with sequela of portal hypertension. No clearly new or suspicious hepatic lesion is identified. No visualized ascites within the [id number] 3. Distended gallbladder with mild wall thickening but without visualized shen lithiasis, nonspecific in the setting of cirrhosis. Correlate with patient's symptoms/exam. If there is concern for ac charla cholecystitis, recommend HIDA. 4. Additional description as above. Reading Location: [id number]
== END | disposition home or self-care (01) ==
LOC: MRI 07:25
PROVIDERS: PCP Family Medicine Geriatric Medicine; Referring Provider Internal Medicine Gastroenterology; Visit Provider Internal Medicine Gastroenterology
DX: K74.60 Unspecified cirrhosis of liver (principal)
CPT/HCPCS: 74183; A9575; A4216

== ENCOUNTER → 2025-05-15 | Outpatient (CLI) | payer OTHER, MEDICARE, SELFPAY ==
--- NOTE | 2025-05-15 12:43 | RAD_ITS ---
EXAM: XR Right Knee, 3 Views CLINICAL INDICATION: HEMATOMA OF R KNEE REGION TECHNIQUE: Three views of the right knee. COMPARISON: No relevant prior studies available. FINDINGS: BONES/JOINTS: Moderate degenerative changes of the medial and lateral compartments of the knee joint. No acute fracture. No dislocation. SOFT TISSUES: Soft tissue swelling. RAD/Knee 3 Views IMPRESSION: 1. Soft tissue swelling. 2. Moderate degenerative changes of the medial and lateral compartments of the knee joint. Reading Location: [id number]
== END | disposition home or self-care (01) ==
LOC: LABSPEC 12:05 → MTRAD 12:33
PROVIDERS: PCP Family Medicine Geriatric Medicine; Referring Provider Family Medicine Geriatric Medicine; Visit Provider Family Medicine Geriatric Medicine
DX: S81.802A Unspecified open wound, left lower leg, initial encounter (principal); S80.01XA Contusion of right knee, initial encounter; X58.XXXA Exposure to other specified factors, initial encounter; L03.116 Cellulitis of left lower limb
CPT/HCPCS: 73562; 87070; 87205; 87640

== ENCOUNTER → 2025-06-01 | Outpatient (CLI) | payer OTHER, MEDICARE, SELFPAY ==
--- NOTE | 2025-06-01 08:38 | US_ITS ---
PROCEDURE: EXT NON VASC LIMITED/SOFT TISS 06/01/2025 REASON FOR EXAM: HEMATOMA OF R KNEE REGION TECHNIQUE: Procedure Code: [id number] Modality: US Procedure: EXT NON VASC LIMITED/SOFT TISS COMPARISON: None FINDINGS: The area of swelling in the lateral inferior aspect of the right knee joint corresponds to a 27.9 cm 7.1 cm 10.5 cm predominantly fluid collection with the septations. Drainage is recommended. US/Ext Non Vasc Limited/Soft Tiss IMPRESSION: 27.9 cm by 7.1 cm 10.5 cm predominantly fluid collection with the internal sept ations. Drainage recommended. Reading Location: [place] [id number]
== END | disposition home or self-care (01) ==
PROVIDERS: PCP Family Medicine Geriatric Medicine; Referring Provider Family Medicine Geriatric Medicine; Visit Provider Family Medicine Geriatric Medicine
DX: S80.01XA Contusion of right knee, initial encounter (principal)
CPT/HCPCS: 76882

== ENCOUNTER 2025-06-10 09:54 | Outpatient (CLI) | payer OTHER, MEDICARE, SELFPAY ==
--- NOTE | 2025-06-10 09:57 | US_ITS ---
PROCEDURE: CYST PUNCTURE 06/10/2025 REASON FOR EXAM: Abnormal fluid collection in the right lower extremity. TECHNIQUE: Procedure Code: USCP Modality: US Procedure: CYST PUNCTURE The fluid collection in the right lower leg was localized by ultrasound. The procedure as well as the benefits and possible complications were explained to the patient. Informed consent was obtained. The overlying skin was prepped and draped in the usual sterile fashion. Following local anesthetic application and under direct sonographic guidance, a 5 [place] catheter was placed into the fluid collection. A total of 1170 mL of natividad colored fluid was removed. The patient tolerated the procedure well. COMPARISON: Prior study dated June 01, 2025. FINDINGS: Successful drainage of the large fluid collection. US/Cyst Puncture IMPRESSION: Successful drainage of the large fluid collection. The patient tolerated the p rocedure well. Reading Location: [place] [id number]
== END 2025-06-10 23:59 | disposition home or self-care (01) ==
LOC: RAD 09:55
PROVIDERS: PCP Family Medicine Geriatric Medicine; Referring Provider Family Medicine Geriatric Medicine; Visit Provider Family Medicine Geriatric Medicine
DX: M25.461 Effusion, right knee (principal)
CPT/HCPCS: 20610; 76942